=== PATIENT | male | born 1955 | race Caucasian/White ===

== ENCOUNTER 2017-02-01 10:58 | Day surgery (SDC) | payer OTHER ==
--- NOTE | 2017-01-29 13:56 | HP ---
DATE OF SURGERY: 02/01/2017 HISTORY OF PRESENT ILLNESS: The patient is a 62 year-old who for a few weeks had 10 small sized masses in his axilla decrease some in size but he is concerned as he has had scratched himself previously. He has history of melanoma in the past. He is concerned and desires excisional biopsy. PAST MEDICAL HISTORY: Diabetes mellitus type 2, history of melanoma in the past. PAST SURGICAL HISTORY: Melanoma excision in the past. Kidney stones removed in the past. Ericson teeth extracted. MEDICATIONS: Actos, Metformin, lisinopril, lovastatin, omeprazole. ALLERGIES: DEMEROL. FAMILY HISTORY: Lung cancer, diabetes. SOCIAL HISTORY: No smoking or alcohol abuse. REVIEW OF SYSTEMS: Twelve systems reviewed per admission assessment. No chest pain or palpitations, no weight loss. Other systems negative or noncontributory as above and per preadmission questionnaire. PHYSICAL EXAMINATION: GENERAL: No acute distress. HEENT: Sclerae nonicteric. NECK: No JVD. CHEST: Equal excursion, nonlabored breathing. CVS: Regular rate and rhythm. AXILLA: Slightly prominent lymph node. No skin changes over the top. ABDOMEN: Soft. No peritoneal signs. EXTREMITIES: No edema. NEURO: Alert, moving extremities symmetrically. No gross motor deficits noted. IMPRESSION: Left axillary lymphadenopathy, prior history of melanoma. The patient desires excisional biopsy for definitive path. Risks and benefits explained in detail including but not limited to bleeding or infection, small risk of hematoma or seroma formation or lymphocele formation possibly requiring open procedure, possible need for drain placement, general risk of anesthesia, deep venous thrombosis, risk of lymphedema, risk of aches, pains, burning or numbness, sensory or motor nerve irritation, scar formation or injury with risk of transient or longer term numbness, risk of weakness in his shoulder or upper extremity but not limited to. He bowel prep, postoperative risk of nausea, vomiting or cramping but not limited to. He understands and agrees to the planned procedure and will proceed with excisional biopsy of left axillary lymphadenopathy as an outpatient. He had been discussed the option of needle biopsy versus excisional biopsy. He prefers to go ahead and proceed with definitive excisional biopsy for treatment and pathologic evaluation accepting the above risks but not limited to.
[~2017-02-01 10:58] MED LIST: Lactated Ringers 1,000 ML IV ONE; Lactated Ringers 1,000 ML IV SCH; Sensorcaine 0.25% 10 ML ONE
[2017-02-01] MEDS ORDERED: SUBLIMAZE 100 MCG/2 ML IV ONE (10:59)
[2017-02-01] MEDS ORDERED: Zofran 4 MG/2 ML VIAL IV ONE (10:59)
[2017-02-01] MEDS ORDERED: DIPRIVAN 200 MG/20 ML IV ONE (10:59)
[2017-02-01] MEDS ORDERED: Decadron 4 MG INJ IV ONE (10:59)
[2017-02-01 12:07] LABS: ANION GAP 11.3 MEQ/L (5-15); BLOOD UREA NITROGEN 15 mg/dL (9-20); CHLORIDE 105 mEq/L (98-107); Glucose 127 MG/DL (70-110); Potassium 4.8 mEq/L (3.5-5.1); SODIUM 140 mEq/L (136-145)
[2017-02-01] MEDS ORDERED: CEFAZOLIN 2 GM-D5W BAG** 2 GM/50 ML ML IV ONE (14:00)
[2017-02-01] MEDS ORDERED: SUBLIMAZE 100 MCG/2 ML ONE (14:51)
--- NOTE | 2017-02-01 14:54 | OP ---
SURGERY DATE/TIME: 02/01/2017 1344 PREOPERATIVE DIAGNOSES: 1) Left axillary adenopathy. 2) History of melanoma. POSTOPERATIVE DIAGNOSES: 1) Left axillary adenopathy. 2) History of melanoma. PROCEDURE: Excisional biopsy of left axillary adenopathy (very large lymph node). SURGEON: Dr. Bonifacio Gilliland. GERM DRIER: Saima Call, Medical Student III. ANESTHESIA: General. ESTIMATED BLOOD LOSS: Minimal. INDICATIONS: As noted above. Risks and benefits explained in detail and not limited to and consent obtained. DESCRIPTION OF PROCEDURE AND FINDINGS: The patient is taken to the operating room. General anesthesia introduced. Axilla and extremity were prepped and draped in usual sterile fashion. After official time out and no disagreement with planned procedure, a transverse incision made directly overlying the palpable adenopathy left axilla. Dissection carried down through the subcu and into the axillary fat pad carefully staying directly on this large lymph node. Slowly and carefully with a clamp ligating small arterial veins and lymphatics going into and out of this node staying directly on the lymph node capsule. This took some time but slowly and carefully accomplished ligating and clipping the small arterial lymphatics. The node was finally mobilized upwards. It was about 4.5 to 5 cm in size. It was passed off. Good hemostasis noted. Axilla was irrigated out. A 10 flat DAHIANA was left in axillary space out through inferior stab wound and secured with PDS suture and placed to bulb suction. The deep subcu was closed closing the axillary fat pad, superficial subcu with 3-0 Vicryl, skin closed with 4-0 Vicryl. Dermabond glue was applied in a couple of areas as well as sterile dressing. Drain secured and placed to bulb suction. The patient tolerated the procedure well. There were no immediate complications. Findings discussed with the family out in the waiting area.
[2017-02-01 15:45] VITALS: PULSE 60
[2017-02-01 16:11] VITALS: BP 142/72; O2SAT 99
== END 2017-02-01 16:15 | disposition home or self-care (01) ==
LOC: SDC 10:58
PROVIDERS: ATTEND Surgery
PROC: 07B60ZX Excision of Left Axillary Lymphatic, Open Approach, Diagnostic (ICD-10-PCS; principal; 2017-02-01)
DX: R59.9 Enlarged lymph nodes, unspecified (principal); Z85.820 Personal history of malignant melanoma of skin; E11.9 Type 2 diabetes mellitus without complications; Z87.442 Personal history of urinary calculi
CPT/HCPCS: 01610; 36415; 80048; 82962; 88184; 88185; 88187; 88188; 88189; 93005; J0690; J1100; J2405; J2704; J3010

== ENCOUNTER 2021-05-15 16:55 | Inpatient (IN) | payer MEDICARE ==
[2021-05-15] MEDS ORDERED: Sodium Chloride 0.9% 1000 ML 1,000 ML IV SCH (17:15)
[2021-05-15] MEDS ORDERED: Sodium Chloride 0.9% 1000 ML 1,000 ML ONE (17:34)
[2021-05-15 17:51] LABS: Absolute Neutrophil Ct (ANC) 3.06 (1.4-6.9); BASOPHIL % 0.2 % (0.0-0.4); Basophil (Absolute #) 0.01 (0-0.4); Eosinophil % 1.8 % (0.00-5.0); Eosinophil (Absolute #) 0.11 (0-0.5); Hematocrit 42.2 % (42-50); Hemoglobin 14.3 gm/dl (12.5-18.0); Lymphocyte (Absolute #) 1.92 (1.0-4.6); Lymphocytes % 32.3 % (24.0-44.0); Mean Cell Volume 84.6 fl (78-100); Mean Corpuscular Hemoglobin 28.7 pg (26-32); Mean Corpuscular Hgb Concent. 33.9 g/dl (32-36); Mean Platelet Volume 9.6 fl (7.5-11.0); Monocyte (Absolute #) 0.85 (0.0-1.3); Monocytes % 14.3 % (0.0-12.0); Neutrophil % 51.4 % (36.0-66.0); Platelet Count 259 K/mm3 (150-450); Red Blood Count 4.99 M/mm3 (4.1-5.6); Red Cell Distribution Width 12.7 % (11.5-14.0)
[2021-05-15 18:13] LABS: ALBUMIN 4.1 g/dL (3.5-5.0); ALKALINE PHOSPHATASE 74 U/L (38-126); ANION GAP 13.6 MEQ/L (5-15); BLOOD UREA NITROGEN 12 mg/dL (9-20); CHLORIDE 92 mmol/L (98-107); Calcium 9.5 mg/dL (8.4-10.2); Carbon Dioxide 23 mmol/L (22-30); Creatinine 1 0.49 mg/dL (0.66-1.25); EST GLOMERULAR FILTRATION RATE > 60.0 ML/MIN; Glucose 329 mg/dL (74-106); Potassium 4.5 mmol/L (3.5-5.1); SGOT/AST 46 U/L (17-59); SGPT/ALT 52 U/L (0-50); SODIUM 124 mmol/L (137-145); Total Protein 6.8 g/dL (6.3-8.2)
--- NOTE | 2021-05-15 18:22 | ERPHSYRPT ---
- History of Present Illness Time Seen by Provider: 05/15/21 17:10 Historian: patient Exam Limitations: no limitations Patient Subjective Stated Complaint: PT states "I am on immunotherapy for melanoma, I have chronic constipation and I know I am not moving much of my andreina ls. I am nauseated but I will not vomited. My belly hurts a little and I am not moving much gas." Triage Nursing Assessment: Pt presented alert and oriented X 3, skin wpd Pt ambulates with a slow gait, able to speak in clear full sentences. Pt in no apaprent respiratory distress. Pt resting comfortably on the bed. Physician History: Patient is a 66-year-old male with a history of melanoma on immunotherapy presents to our ED with complaints of abdominal pain which she believes is due to constipation. Patient states he is not having frequent bowel movements is normal. Patient states he is not passing much gas. Patient describes abdominal pain as a bloating sensation and a pressure. There is intermittent exacerbations of his pain as well. No vomiting. No trauma. No fever. No chest pain or shortness of breath. Symptoms are mild to moderate in intensity. No specific worsening or improving factors. Patient voices no other complaints or concerns at this time. Timing/Duration: today Activities at Onset: none Quality: aching, fullness, pressure Abdominal Pain Onset Location: generalized abdomen Pain Radiation: no radiation Severity of Pain-Max: moderate Severity of Pain-Current: mild Associated Symptoms: denies symptoms Previous symptoms: no prior history Allergies/Adverse Reactions: meperidine [From Demerol] Adverse Reaction (Intermediate, Verified 06/01/20 09:34) Nausea Home Medications: Lovastatin 40 mg PO HS 02/01/17 [History] Omeprazole 20 mg PO DAILY 02/01/17 [History] Albuterol 2.5 mg/3 ml Neb [Proventil 2.5 mg/3 ml Neb] 2.5 mg IH UD 02/08/20 [History] Albuterol 8 gm Mdi Hfa [Ventolin Hfa MDI] 8 gm IH UD 02/08/20 [History] Arformoterol Tartrate [Brovana] 15 mcg IH BID 02/08/20 [History] Budesonide 0.5 mg/2 ml [Pulmicort 0.5 mg/2 ml Respules] 0.5 mg IH DAILY 02/08/20 [History] Glipizide 5 mg [Glucotrol 5 MG] 5 mg PO DAILY 02/08/20 [History] Ibuprofen [Advil] 200 mg PO UD 02/08/20 [History] Valsartan 80 mg PO DAILY 02/08/20 [History] Hx Tetanus, Diphtheria Vaccination/Date Given: No Hx Influenza Vaccination/Date Given: Yes Hx Pneumococcal Vaccination/Date Given: Yes Immunizations Up to Date: Yes Travel Risk - International Travel Have you traveled outside of the country in past 3 weeks: No - Coronavirus Screening Are you exhibiting any of the following symptoms?: No Close contact with a COVID-19 positive Pt in past 14-21 Days: No - Vaccine Status Have you recieved a Covid-19 vaccination: Yes [employer]: [employer] - Vaccination Dates Date of 2cond Vaccination (if applicable): 08/2020 Comment: booster in february - Review of Systems Constitutional: No Symptoms, No Fever, No Chills Eyes: No Symptoms Ears, Nose, & Throat: No Symptoms Respiratory: No Symptoms, No Cough, No Dyspnea Cardiac: No Symptoms, No Chest Pain, No Edema, No Syncope Abdominal/Gastrointestinal: No Symptoms, No Abdominal Pain, No Nausea, No Vomiting, No Diarrhea Genitourinary Symptoms: No Symptoms, No Dysuria Musculoskeletal: No Symptoms, No Back Pain, No Neck Pain Skin: No Symptoms, No Rash Neurological: No Symptoms, No Dizziness, No Focal Weakness, No Sensory Changes Psychological: No Symptoms Endocrine: No Symptoms Hematologic/Lymphatic: No Symptoms Immunological/Allergic: No Symptoms All Other Systems: Reviewed and Negative - Past Medical History Pertinent Past Medical History: Yes Neurological History: No Pertinent History ENT History: No Pertinent History Cardiac History: High Cholesterol, Hypertension, Other Respiratory History: COPD Endocrine Medical History: Diabetes Type II Musculoskeletal History: Other GI Medical History: GERD History: Other Psycho-Social History: No Pertinent History Male Reproductive Disorders: No Pertinent History Other Medical History: HX FX LEFT TIBIA 2003 TREATED WITH CASTING THEN BOOT WITHOUT RESIDUAL PROBLEMS. GERD. melanoma - Past Surgical History Past Surgical History: Yes Neuro Surgical History: No Pertinent History Cardiac: No Pertinent History Respiratory: No Pertinent History Gastrointestinal: No Pertinent History Genitourinary: Other Musculoskeletal: Orthopedic Surgery Male Surgical History: No Pertinent History Other Surgical History: kidney stone removal, wisdom teeth removed, MULTIPLE melanoma removed, LEFT ROTATOR CUFF REPAIR AND BICEP TENDON REPAIR. SURGICAL FLUSH OF POST OP INFECTION OF LEFT SHOULDER,left shoulder repair and antibiotic beads palced 05/29/2020 - Social History Smoking Status: Never smoker Exposure to second hand smoke: Yes Drug Use: none Patient Lives Alone: No - Nursing Vital Signs Nursing Vital Signs: Initial Vital Signs Temperature 97.8 F 05/15/21 17:01 Pulse Rate 66 05/15/21 17:01 Respiratory Rate 20 05/15/21 17:01 Blood Pressure 124/79 05/15/21 17:01 O2 Sat by Pulse Oximetry 100 05/15/21 17:01 Pain Scale Pain Intensity 0 - Physical Exam General Appearance: no apparent distress, alert Eye Exam: PERRL/EOMI, eyes nml inspection Ears, Nose, Throat Exam: normal ENT inspection, pharynx normal, moist mucous membranes Neck Exam: normal inspection, non-tender, supple, full range of motion Respiratory Exam: normal breath sounds, lungs clear, airway intact, No respiratory distress Cardiovascular Exam: regular rate/rhythm, normal heart sounds Gastrointestinal/Abdomen Exam: soft, distention, other (Mild diffuse abdominal tenderness.), No tenderness, No mass Back Exam: normal inspection, normal range of motion, No CVA tenderness, No vertebral tenderness Extremity Exam: normal inspection, normal range of motion, pelvis stable Neurologic Exam: alert, oriented x 3, cooperative, normal mood/affect, nml cerebellar function, sensation nml, No motor deficits Skin Exam: normal color, warm, dry Lymphatic Exam: No adenopathy SpO2 Interpretation: normal SpO2: 98 O2 Delivery: Room Air - Course Nursing assessment & vital signs reviewed: Yes - CT Exams Abdomen/Pelvis CT Interpretation: Tele-radiologist Report (No comparisons. Indeterminate 2.3 cm noncalcified left adrenal mass, not adenoma. Normal appendix. Scattered diverticulosis. Remaining abdomen pelvis negative.) Ordered Tests: Active Orders 24 hr Category Date Time Status IV Insertion STAT Care 05/15/21 17:15 Active POCT Glucose Check STAT Care 05/15/21 21:05 Active ABDOMEN AND PELVIS W/0 CONTRAS [CT] Stat Exams 05/15/21 17:14 Taken CBC W DIFF Stat Lab 05/15/21 17:33 Completed CMP Stat Lab 05/15/21 17:33 Completed POCT GLUCOSE Stat Lab 05/15/21 21:04 Completed TROPONIN Q3H Lab 05/15/21 17:33 Completed TROPONIN Q3H Lab 05/15/21 20:12 Completed TROPONIN Q3H Lab 05/16/21 02:15 Ordered TROPONIN Q3H Lab 05/16/21 05:15 Ordered UA W/RFX UR CULTURE Stat Lab 05/15/21 19:50 Completed Transfer Order Routine Transfer 05/15/21 Ordered Medication Summary Generic Name Dose Route Start Last Admin Trade Name Jose PRN Reason Stop Dose Admin Sodium Chloride 1,000 mls @ 100 mls/hr 05/15/21 17:15 05/15/21 17:35 Sodium Chloride 0.9% 1000 Ml IV 06/14/21 17:14 100 mls/hr .Q10H BALBIR Administration Discontinued Medications Generic Name Dose Route Start Last Admin Trade Name Jose PRN Reason Stop Dose Admin Acetaminophen 1,000 mg 05/15/21 18:55 05/15/21 18:57 Acetaminophen 500 Mg Tablet PO 05/15/21 18:56 1,000 mg STAT ONE Administration Acetaminophen Confirm 05/15/21 18:57 Acetaminophen 500 Mg Tablet Administered 05/15/21 18:58 Dose 1,000 mg .ROUTE .STK-MED ONE Heparin Sodium (Beef Lung) 500 units 05/15/21 18:54 05/15/21 20:56 Heparin Lock Flush Pf 500 Units/5 Ml Syringe PORT FLUSH 05/15/21 18:55 Not Given STAT ONE Morphine Sulfate 4 mg 05/15/21 19:41 05/15/21 19:44 Morphine Sulfate 4 Mg/Ml Injection IV 05/15/21 19:42 4 mg STAT ONE Administration Morphine Sulfate Confirm 05/15/21 19:43 Morphine Sulfate 4 Mg/Ml Injection Administered 05/15/21 19:44 Dose 4 mg .ROUTE .STK-MED ONE Ondansetron HCl Confirm 05/15/21 19:49 Ondansetron Hcl 4 Mg/2 Ml Vial Administered 05/15/21 19:50 Dose 4 mg .ROUTE .STK-MED ONE Ondansetron HCl 4 mg 05/15/21 19:50 05/15/21 19:50 Ondansetron Hcl 4 Mg/2 Ml Vial IV 05/15/21 19:51 4 mg STAT ONE Administration Lab/Rad Data: Laboratory Result Diagrams 05/15/21 17:33 05/15/21 17:33 Laboratory Results 05/15/21 05/15/21 05/15/21 Range/Units 21:04 20:50 20:12 WBC (4.0-10.5) K/mm3 RBC (4.1-5.6) M/mm3 Hgb (12.5-18.0) gm/dl Hct (42-50) % MCV (78-100) fl MCH (26-32) pg MCHC (32-36) g/dl RDW (11.5-14.0) % Plt Count (150-450) K/mm3 MPV (7.5-11.0) fl Gran % (36.0-66.0) % Eos # (Auto) (0-0.5) Absolute Lymphs (auto) (1.0-4.6) Absolute Monos (auto) (0.0-1.3) Lymphocytes % (24.0-44.0) % Monocytes % (0.0-12.0) % Eosinophils % (0.00-5.0) % Basophils % (0.0-0.4) % Absolute Granulocytes (1.4-6.9) Basophils # (0-0.4) Sodium (137-145) mmol/L Potassium (3.5-5.1) mmol/L Chloride (98-107) mmol/L Carbon Dioxide (22-30) mmol/L Anion Gap (5-15) MEQ/L BUN (9-20) mg/dL Creatinine (0.66-1.25) mg/dL Estimated GFR ML/MIN Glucose (74-106) mg/dL POC Glucometer 240 H (74 to 106) mg/dL Calcium (8.4-10.2) mg/dL Total Bilirubin (0.2-1.3) mg/dL AST (17-59) U/L ALT (0-50) U/L Alkaline Phosphatase (38-126) U/L Troponin I < 0.012 (0.000-0.034) ng/mL Serum Total Protein (6.3-8.2) g/dL Albumin (3.5-5.0) g/dL Urine Color (YELLOW) Urine Appearance (CLEAR) Urine pH (5-6) Ur Specific [place] (1.005-1.025) Urine Protein (Negative) Urine Ketones (NEGATIVE) Urine Blood (0-5) Ramirez/ul Urine Nitrite (NEGATIVE) Urine Bilirubin (NEGATIVE) Urine Urobilinogen (0-1) mg/dL Ur Leukocyte Esterase (NEGATIVE) Urine WBC (Auto) (0-5) /HPF Urine RBC (Auto) (0-2) /HPF U Epithel Cells (Auto) (FEW) /HPF Urine Bacteria (Auto) (NEGATIVE) /HPF Urine Culture Reflexed (NO) Urine Glucose (NEGATIVE) mg/dL Influenza Type A Ag NEGATIVE (NEGATIVE) Influenza Type B Ag NEGATIVE (NEGATIVE) RSV (PCR) NEGATIVE (Negative) SARS-CoV-2 (PCR) NEGATIVE (NEGATIVE) 05/15/21 05/15/21 05/15/21 Range/Units 19:50 17:33 17:33 WBC 6.0 (4.0-10.5) K/mm3 RBC 4.99 (4.1-5.6) M/mm3 Hgb 14.3 (12.5-18.0) gm/dl Hct 42.2 (42-50) % MCV 84.6 (78-100) fl MCH 28.7 (26-32) pg MCHC 33.9 (32-36) g/dl RDW 12.7 (11.5-14.0) % Plt Count 259 (150-450) K/mm3 MPV 9.6 (7.5-11.0) fl Gran % 51.4 (36.0-66.0) % Eos # (Auto) 0.11 (0-0.5) Absolute Lymphs (auto) 1.92 (1.0-4.6) Absolute Monos (auto) 0.85 (0.0-1.3) Lymphocytes % 32.3 (24.0-44.0) % Monocytes % 14.3 H (0.0-12.0) % Eosinophils % 1.8 (0.00-5.0) % Basophils % 0.2 (0.0-0.4) % Absolute Granulocytes 3.06 (1.4-6.9) Basophils # 0.01 (0-0.4) Sodium 124 L (137-145) mmol/L Potassium 4.5 (3.5-5.1) mmol/L Chloride 92 L (98-107) mmol/L Carbon Dioxide 23 (22-30) mmol/L Anion Gap 13.6 (5-15) MEQ/L BUN 12 (9-20) mg/dL Creatinine 0.49 L (0.66-1.25) mg/dL Estimated GFR > 60.0 ML/MIN Glucose 329 H (74-106) mg/dL POC Glucometer (74 to 106) mg/dL Calcium 9.5 (8.4-10.2) mg/dL Total Bilirubin 0.70 (0.2-1.3) mg/dL AST 46 (17-59) U/L ALT 52 H (0-50) U/L Alkaline Phosphatase 74 (38-126) U/L Troponin I (0.000-0.034) ng/mL Serum Total Protein 6.8 (6.3-8.2) g/dL Albumin 4.1 (3.5-5.0) g/dL Urine Color YELLOW (YELLOW) Urine Appearance CLEAR (CLEAR) Urine pH 5.0 (5-6) Ur Specific [place] 1.032 (1.005-1.025) Urine Protein NEGATIVE (Negative) Urine Ketones SMALL (NEGATIVE) Urine Blood NEGATIVE (0-5) Ramirez/ul Urine Nitrite NEGATIVE (NEGATIVE) Urine Bilirubin NEGATIVE (NEGATIVE) Urine Urobilinogen NEGATIVE (0-1) mg/dL Ur Leukocyte Esterase NEGATIVE (NEGATIVE) Urine WBC (Auto) NONE (0-5) /HPF Urine RBC (Auto) NONE (0-2) /HPF U Epithel Cells (Auto) NONE (FEW) /HPF Urine Bacteria (Auto) NONE SEEN (NEGATIVE) /HPF Urine Culture Reflexed NO (NO) Urine Glucose >=500 (NEGATIVE) mg/dL Influenza Type A Ag (NEGATIVE) Influenza Type B Ag (NEGATIVE) RSV (PCR) (Negative) SARS-CoV-2 (PCR) (NEGATIVE) 05/15/21 Range/Units 17:33 WBC (4.0-10.5) K/mm3 RBC (4.1-5.6) M/mm3 Hgb (12.5-18.0) gm/dl Hct (42-50) % MCV (78-100) fl MCH (26-32) pg MCHC (32-36) g/dl RDW (11.5-14.0) % Plt Count (150-450) K/mm3 MPV (7.5-11.0) fl Gran % (36.0-66.0) % Eos # (Auto) (0-0.5) Absolute Lymphs (auto) (1.0-4.6) Absolute Monos (auto) (0.0-1.3) Lymphocytes % (24.0-44.0) % Monocytes % (0.0-12.0) % Eosinophils % (0.00-5.0) % Basophils % (0.0-0.4) % Absolute Granulocytes (1.4-6.9) Basophils # (0-0.4) Sodium (137-145) mmol/L Potassium (3.5-5.1) mmol/L Chloride (98-107) mmol/L Carbon Dioxide (22-30) mmol/L Anion Gap (5-15) MEQ/L BUN (9-20) mg/dL Creatinine (0.66-1.25) mg/dL Estimated GFR ML/MIN Glucose (74-106) mg/dL POC Glucometer (74 to 106) mg/dL Calcium (8.4-10.2) mg/dL Total Bilirubin (0.2-1.3) mg/dL AST (17-59) U/L ALT (0-50) U/L Alkaline Phosphatase (38-126) U/L Troponin I < 0.012 (0.000-0.034) ng/mL Serum Total Protein (6.3-8.2) g/dL Albumin (3.5-5.0) g/dL Urine Color (YELLOW) Urine Appearance (CLEAR) Urine pH (5-6) Ur Specific [place] (1.005-1.025) Urine Protein (Negative) Urine Ketones (NEGATIVE) Urine Blood (0-5) Ramirez/ul Urine Nitrite (NEGATIVE) Urine Bilirubin (NEGATIVE) Urine Urobilinogen (0-1) mg/dL Ur Leukocyte Esterase (NEGATIVE) Urine WBC (Auto) (0-5) /HPF Urine RBC (Auto) (0-2) /HPF U Epithel Cells (Auto) (FEW) /HPF Urine Bacteria (Auto) (NEGATIVE) /HPF Urine Culture Reflexed (NO) Urine Glucose (NEGATIVE) mg/dL Influenza Type A Ag (NEGATIVE) Influenza Type B Ag (NEGATIVE) RSV (PCR) (Negative) SARS-CoV-2 (PCR) (NEGATIVE) - Progress Progress: improved Progress Note: Patient reassessed. He feels much better. No active abdominal pain or lower extremity cramping. Patient is hyponatremic. Case discussed with Dr. Diaz who accepts admission to observation. We will continue IV fluids. We will place patient on a fluid restriction. Troponin negative. Glucose improving. Plan of care discussed with patient. He agrees to admission [facility] for further evaluation and treatment. 05/15/21 22: Patient's primary care doctor is Dr. Curiel. Dr. Diaz is covering Dr. Curiel today. Portions of this note were created with voice recognition technology. There may be grammatical, spelling, punctuation or sound alike errors 05/15/21 22:[address] Chely Will see patient in: hospital (observation) Counseled pt/family regarding: lab results, diagnosis, rad results - Departure Departure Disposition: Observation Clinical Impression: Adrenal mass, left, Diverticulosis, Hyponatremia, Hyperglycemia, Generalized weakness Condition: Stable Critical Care Time: No Referrals: DOCTOR,NO FAMILY [Primary Care Provider] - Follow up/PCP as directed Additional Instructions: Discharge/Care Plan BRITNEY NÚÑEZ was seen on 05/15/21 in the Emergency Room. The patient was counseled regarding Diagnosis,Lab results, Imaging studies, need for follow up and when to return to the Emergency Room. Prescriptions given: Discharge Note I have spoken with the patient and/or caregivers. I have explained the patient's condition, diagnosis and treatment plan based on the information available to me at this time. I have answered the patient's and/or caregiver's questions and addressed any concerns. The patient and/or caregivers have as good understanding of the patient's diagnosis, condition and treatment plan as can be expected at this point. The vital signs have been stable. The patient's condition is stable and appropriate for discharge from the emergency department. The patient will pursue further outpatient evaluation with the primary care physician or other designated or consulting physician as outlined in the discharge instructions. The patient and/or caregivers are agreeable to this plan of care and follow-up instructions have been explained in detail. The patient and/or caregivers have received these instruction. The patient/and or caregivers are aware that any significant change in condition or worsening of symptoms should prompt an immediate return to this or the closest emergency department or call 911.
[2021-05-15] MEDS ORDERED: TYLENOL EXTRA STRENGTH 500 MG PO ONE (18:55)
[2021-05-15] MEDS ORDERED: TYLENOL EXTRA STRENGTH 500 MG ONE (18:57)
[2021-05-15] MEDS ORDERED: MORPHINE SULFATE 4 MG INJ IV ONE (19:41)
[2021-05-15] MEDS ORDERED: MORPHINE SULFATE 4 MG INJ ONE (19:43)
[2021-05-15] MEDS ORDERED: Zofran 4 MG/2 ML VIAL ONE (19:49)
[2021-05-15] MEDS ORDERED: Zofran 4 MG/2 ML VIAL IV ONE (19:50)
[2021-05-15 19:55] LABS: Appearance CLEAR (CLEAR); Bilirubin NEGATIVE (NEGATIVE); Blood NEGATIVE Ery/ul (0-5); Glucose >=500 mg/dL (NEGATIVE); Ketones SMALL (NEGATIVE); Leukocyte Esterase NEGATIVE (NEGATIVE); Nitrite NEGATIVE (NEGATIVE); Protein,Urine Dip NEGATIVE (Negative); Specific Gravity 1.032 (1.005-1.025); Urobilinogen NEGATIVE mg/dL (0-1)
[2021-05-15 19:57] LABS: Bacteria NONE SEEN /HPF (NEGATIVE)
[2021-05-15 21:42] LABS: INFLUENZA A NEGATIVE (NEGATIVE); INFLUENZA B NEGATIVE (NEGATIVE); RESPIRATORY SYNCTIAL VIRUS NEGATIVE (Negative); SARS-CoV-2 Xpert Express NEGATIVE (NEGATIVE)
[2021-05-15] MEDS ORDERED: Zofran 4 MG/2 ML VIAL IV PRN (22:26)
[2021-05-15] MEDS: Sodium Chloride 0.9% 1000 ML 1,000 ML IV SCH (23:00)
[2021-05-16] MEDS: TYLENOL 325 MG PO PRN ×2 (04:57→15:24)
[2021-05-16 05:11] LABS: Absolute Neutrophil Ct (ANC) 1.57 (1.4-6.9); BASOPHIL % 0.5 % (0.0-0.4); Basophil (Absolute #) 0.02 (0-0.4); Eosinophil % 3.2 % (0.00-5.0); Eosinophil (Absolute #) 0.13 (0-0.5); Hematocrit 38.3 % (42-50); Hemoglobin 12.7 gm/dl (12.5-18.0); Lymphocyte (Absolute #) 1.61 (1.0-4.6); Lymphocytes % 39.6 % (24.0-44.0); Mean Cell Volume 85.7 fl (78-100); Mean Corpuscular Hemoglobin 28.4 pg (26-32); Mean Corpuscular Hgb Concent. 33.2 g/dl (32-36); Mean Platelet Volume 9.4 fl (7.5-11.0); Monocyte (Absolute #) 0.74 (0.0-1.3); Monocytes % 18.2 % (0.0-12.0); Neutrophil % 38.5 % (36.0-66.0); Platelet Count 292 K/mm3 (150-450); Red Blood Count 4.47 M/mm3 (4.1-5.6); Red Cell Distribution Width 12.6 % (11.5-14.0); White Blood Count 4.1 K/mm3 (4.0-10.5)
[2021-05-16 05:36] LABS: ALBUMIN 3.4 g/dL (3.5-5.0); ALKALINE PHOSPHATASE 61 U/L (38-126); ANION GAP 11.2 MEQ/L (5-15); BLOOD UREA NITROGEN 9 mg/dL (9-20); CHLORIDE 96 mmol/L (98-107); Calcium 8.5 mg/dL (8.4-10.2); Carbon Dioxide 22 mmol/L (22-30); Creatinine 1 0.45 mg/dL (0.66-1.25); EST GLOMERULAR FILTRATION RATE > 60.0 ML/MIN; Glucose 244 mg/dL (74-106); Potassium 4.5 mmol/L (3.5-5.1); SGOT/AST 65 U/L (17-59); SGPT/ALT 58 U/L (0-50); SODIUM 124 mmol/L (137-145); Total Protein 5.9 g/dL (6.3-8.2)
[2021-05-16] MEDS: MORPHINE SULFATE 2 MG INJ IV PRN ×2 (05:53→21:40)
[2021-05-16] MEDS: Sodium Chloride 0.9% 1000 ML 1,000 ML IV SCH ×2 (09:01→18:37)
--- NOTE | 2021-05-16 09:08 | PCM.HP ---
History of Present Illness - Chief Complaint Chief Complaint: hyponatremia, generalized weakness History of Present Illness: is a 66 year old male with a history of metastatic melanoma, he is currently on opdivo and has known adrenal metastatic disease. He is having profound fatigue for the last 8 days, terrible nausea but no vomiting or diarrhea. He has no cough, no shortness of breath, no diarrhea, abd pain or blood in the stools. He stopped taking metformin 2 weeks ago due to nausea and feeling poorly. He has had a poor appetite and not eating or drinking much. - Review of Systems Constitutional: Fatigue, Weakness Respiratory: No Cough, No Short Of Breath Cardiac: No Chest Pain, No Edema, No Syncope Abdominal/Gastrointestinal: Nausea, No Abdominal Pain, No Vomiting, No Diarrhea, No Constipation, No Hematochezia Genitourinary Symptoms: No Dysuria Skin: No Rash All Other Systems: Reviewed and Negative Medications & Allergies Home Medications: Home Medication List Lovastatin 40 mg PO HS 02/01/17 [History Confirmed 05/15/21] Omeprazole 20 mg PO DAILY 02/01/17 [History Confirmed 05/15/21] Albuterol 2.5 mg/3 ml Neb [Proventil 2.5 mg/3 ml Neb] 2.5 mg IH UD PRN 02/08/20 [History Confirmed 05/15/21] Albuterol 8 gm Mdi Hfa [Ventolin Hfa MDI] 8 gm IH UD PRN 02/08/20 [History Confirmed 05/15/21] Arformoterol Tartrate [Brovana] 15 mcg IH BID 02/08/20 [History Confirmed 05/15/21] Budesonide 0.5 mg/2 ml [Pulmicort 0.5 mg/2 ml Respules] 0.5 mg IH DAILY 02/08/20 [History Confirmed 05/15/21] Glipizide 5 mg [Glucotrol 5 MG] 5 mg PO DAILY 02/08/20 [History Confirmed 05/15/21] Ibuprofen [Advil] 200 mg PO UD PRN 02/08/20 [History Confirmed 05/15/21] Valsartan 80 mg PO DAILY 02/08/20 [History Confirmed 05/15/21] Allergies/Adverse Reactions: Allergies Allergy/AdvReac Type Severity Reaction Status Date / Time meperidine [From Demerol] AdvReac Intermediate Nausea Verified 06/01/20 09:34 - Past Medical History Past Medical History: Yes Neurological History: No Pertinent History ENT History: No Pertinent History Cardiac History: High Cholesterol, Hypertension, Other Respiratory History: COPD Endocrine Medical History: Diabetes Type II Musculoskelatal History: Other GI Medical History: GERD History: Other Pyscho-Social History: No Pertinent History Male Reproductive Disorders: No Pertinent History Comment: HX FX LEFT TIBIA 2003 TREATED WITH CASTING THEN BOOT WITHOUT RESIDUAL PROBLEMS. GERD. melanoma. Mass on the right kidney - Past Surgical History Past Surgical History: Yes Neuro Surgical History: No Pertinent History Cardiac History: No Pertinent History Respiratory Surgery: No Pertinent History GI Surgical History: No Pertinent History Genitourinary Surgical Hx: Other Musculskeletal Surgical Hx: Orthopedic Surgery Male Surgical History: No Pertinent History Other Surgical History: kidney stone removal, wisdom teeth removed, MULTIPLE melanoma removed, LEFT ROTATOR CUFF REPAIR AND BICEP TENDON REPAIR. SURGICAL FLUSH OF POST OP INFECTION OF LEFT SHOULDER,left shoulder repair and antibiotic beads palced 05/29/2020 - Social History Smoking Status: Never smoker Exposure to second hand smoke: No Alcohol: None Drug Use: none - Physical Exam Vital Signs: Vital Signs - 24 hr Temp Pulse Resp BP Pulse Ox 05/16/21 08:00 18 05/16/21 04:00 97.3 F 77 18 101/55 96 05/16/21 00:00 97.7 F 74 16 118/59 95 05/15/21 23:12 97.3 F 73 16 107/70 98 05/15/21 23:04 91 L 05/15/21 22:26 96 05/15/21 22:14 98 05/15/21 22:06 76 15 101/67 94 L 05/15/21 21:04 70 108/81 94 L 05/15/21 20:00 76 14 103/72 91 L 05/15/21 19:00 84 16 137/82 96 05/15/21 18:08 77 18 113/84 98 05/15/21 17:01 97.8 F 66 20 124/79 100 General Appearance: thin, other (frail appearing) Respiratory Exam: normal breath sounds, lungs clear, No respiratory distress Cardiovascular Exam: regular rate/rhythm, normal heart sounds, normal peripheral pulses Gastrointestinal/Abdomen Exam: soft, normal bowel sounds, No tenderness, No mass Extremity Exam: normal inspection, normal range of motion, pelvis stable Skin Exam: normal color, warm, dry, No rash Results - Labs Lab/Micro Results: Lab Results-Last 24 Hours 05/15/21 05/15/21 05/15/21 Range/Units 17:33 17:33 17:33 WBC 6.0 (4.0-10.5) K/mm3 RBC 4.99 (4.1-5.6) M/mm3 Hgb 14.3 (12.5-18.0) gm/dl Hct 42.2 (42-50) % MCV 84.6 (78-100) fl MCH 28.7 (26-32) pg MCHC 33.9 (32-36) g/dl RDW 12.7 (11.5-14.0) % Plt Count 259 (150-450) K/mm3 MPV 9.6 (7.5-11.0) fl Gran % 51.4 (36.0-66.0) % Eos # (Auto) 0.11 (0-0.5) Absolute Lymphs (auto) 1.92 (1.0-4.6) Absolute Monos (auto) 0.85 (0.0-1.3) Lymphocytes % 32.3 (24.0-44.0) % Monocytes % 14.3 H (0.0-12.0) % Eosinophils % 1.8 (0.00-5.0) % Basophils % 0.2 (0.0-0.4) % Absolute Granulocytes 3.06 (1.4-6.9) Basophils # 0.01 (0-0.4) Sodium 124 L (137-145) mmol/L Potassium 4.5 (3.5-5.1) mmol/L Chloride 92 L (98-107) mmol/L Carbon Dioxide 23 (22-30) mmol/L Anion Gap 13.6 (5-15) MEQ/L BUN 12 (9-20) mg/dL Creatinine 0.49 L (0.66-1.25) mg/dL Estimated GFR > 60.0 ML/MIN Glucose 329 H (74-106) mg/dL POC Glucometer (74 to 106) mg/dL Calcium 9.5 (8.4-10.2) mg/dL Total Bilirubin 0.70 (0.2-1.3) mg/dL AST 46 (17-59) U/L ALT 52 H (0-50) U/L Alkaline Phosphatase 74 (38-126) U/L Troponin I < 0.012 (0.000-0.034) ng/mL Serum Total Protein 6.8 (6.3-8.2) g/dL Albumin 4.1 (3.5-5.0) g/dL Urine Color (YELLOW) Urine Appearance (CLEAR) Urine pH (5-6) Ur Specific [place] (1.005-1.025) Urine Protein (Negative) Urine Ketones (NEGATIVE) Urine Blood (0-5) Ramirez/ul Urine Nitrite (NEGATIVE) Urine Bilirubin (NEGATIVE) Urine Urobilinogen (0-1) mg/dL Ur Leukocyte Esterase (NEGATIVE) Urine WBC (Auto) (0-5) /HPF Urine RBC (Auto) (0-2) /HPF U Epithel Cells (Auto) (FEW) /HPF Urine Bacteria (Auto) (NEGATIVE) /HPF Urine Culture Reflexed (NO) Urine Glucose (NEGATIVE) mg/dL Influenza Type A Ag (NEGATIVE) Influenza Type B Ag (NEGATIVE) RSV (PCR) (Negative) SARS-CoV-2 (PCR) (NEGATIVE) 05/15/21 05/15/21 05/15/21 Range/Units 19:50 20:12 20:50 WBC (4.0-10.5) K/mm3 RBC (4.1-5.6) M/mm3 Hgb (12.5-18.0) gm/dl Hct (42-50) % MCV (78-100) fl MCH (26-32) pg MCHC (32-36) g/dl RDW (11.5-14.0) % Plt Count (150-450) K/mm3 MPV (7.5-11.0) fl Gran % (36.0-66.0) % Eos # (Auto) (0-0.5) Absolute Lymphs (auto) (1.0-4.6) Absolute Monos (auto) (0.0-1.3) Lymphocytes % (24.0-44.0) % Monocytes % (0.0-12.0) % Eosinophils % (0.00-5.0) % Basophils % (0.0-0.4) % Absolute Granulocytes (1.4-6.9) Basophils # (0-0.4) Sodium (137-145) mmol/L Potassium (3.5-5.1) mmol/L Chloride (98-107) mmol/L Carbon Dioxide (22-30) mmol/L Anion Gap (5-15) MEQ/L BUN (9-20) mg/dL Creatinine (0.66-1.25) mg/dL Estimated GFR ML/MIN Glucose (74-106) mg/dL POC Glucometer (74 to 106) mg/dL Calcium (8.4-10.2) mg/dL Total Bilirubin (0.2-1.3) mg/dL AST (17-59) U/L ALT (0-50) U/L Alkaline Phosphatase (38-126) U/L Troponin I < 0.012 (0.000-0.034) ng/mL Serum Total Protein (6.3-8.2) g/dL Albumin (3.5-5.0) g/dL Urine Color YELLOW (YELLOW) Urine Appearance CLEAR (CLEAR) Urine pH 5.0 (5-6) Ur Specific [place] 1.032 (1.005-1.025) Urine Protein NEGATIVE (Negative) Urine Ketones SMALL (NEGATIVE) Urine Blood NEGATIVE (0-5) Ramirez/ul Urine Nitrite NEGATIVE (NEGATIVE) Urine Bilirubin NEGATIVE (NEGATIVE) Urine Urobilinogen NEGATIVE (0-1) mg/dL Ur Leukocyte Esterase NEGATIVE (NEGATIVE) Urine WBC (Auto) NONE (0-5) /HPF Urine RBC (Auto) NONE (0-2) /HPF U Epithel Cells (Auto) NONE (FEW) /HPF Urine Bacteria (Auto) NONE SEEN (NEGATIVE) /HPF Urine Culture Reflexed NO (NO) Urine Glucose >=500 (NEGATIVE) mg/dL Influenza Type A Ag NEGATIVE (NEGATIVE) Influenza Type B Ag NEGATIVE (NEGATIVE) RSV (PCR) NEGATIVE (Negative) SARS-CoV-2 (PCR) NEGATIVE (NEGATIVE) 05/15/21 05/16/21 05/16/21 Range/Units 21:04 05:01 05:01 WBC 4.1 (4.0-10.5) K/mm3 RBC 4.47 (4.1-5.6) M/mm3 Hgb 12.7 (12.5-18.0) gm/dl Hct 38.3 L (42-50) % MCV 85.7 (78-100) fl MCH 28.4 (26-32) pg MCHC 33.2 (32-36) g/dl RDW 12.6 (11.5-14.0) % Plt Count 292 (150-450) K/mm3 MPV 9.4 (7.5-11.0) fl Gran % 38.5 (36.0-66.0) % Eos # (Auto) 0.13 (0-0.5) Absolute Lymphs (auto) 1.61 (1.0-4.6) Absolute Monos (auto) 0.74 (0.0-1.3) Lymphocytes % 39.6 (24.0-44.0) % Monocytes % 18.2 H (0.0-12.0) % Eosinophils % 3.2 (0.00-5.0) % Basophils % 0.5 (0.0-0.4) % Absolute Granulocytes 1.57 (1.4-6.9) Basophils # 0.02 (0-0.4) Sodium 124 L (137-145) mmol/L Potassium 4.5 (3.5-5.1) mmol/L Chloride 96 L (98-107) mmol/L Carbon Dioxide 22 (22-30) mmol/L Anion Gap 11.2 (5-15) MEQ/L BUN 9 (9-20) mg/dL Creatinine 0.45 L (0.66-1.25) mg/dL Estimated GFR > 60.0 ML/MIN Glucose 244 H (74-106) mg/dL POC Glucometer 240 H (74 to 106) mg/dL Calcium 8.5 (8.4-10.2) mg/dL Total Bilirubin 0.60 (0.2-1.3) mg/dL AST 65 H (17-59) U/L ALT 58 H (0-50) U/L Alkaline Phosphatase 61 (38-126) U/L Troponin I (0.000-0.034) ng/mL Serum Total Protein 5.9 L (6.3-8.2) g/dL Albumin 3.4 L (3.5-5.0) g/dL Urine Color (YELLOW) Urine Appearance (CLEAR) Urine pH (5-6) Ur Specific [place] (1.005-1.025) Urine Protein (Negative) Urine Ketones (NEGATIVE) Urine Blood (0-5) Ramirez/ul Urine Nitrite (NEGATIVE) Urine Bilirubin (NEGATIVE) Urine Urobilinogen (0-1) mg/dL Ur Leukocyte Esterase (NEGATIVE) Urine WBC (Auto) (0-5) /HPF Urine RBC (Auto) (0-2) /HPF U Epithel Cells (Auto) (FEW) /HPF Urine Bacteria (Auto) (NEGATIVE) /HPF Urine Culture Reflexed (NO) Urine Glucose (NEGATIVE) mg/dL Influenza Type A Ag (NEGATIVE) Influenza Type B Ag (NEGATIVE) RSV (PCR) (Negative) SARS-CoV-2 (PCR) (NEGATIVE) 05/16/21 Range/Units 07:59 WBC (4.0-10.5) K/mm3 RBC (4.1-5.6) M/mm3 Hgb (12.5-18.0) gm/dl Hct (42-50) % MCV (78-100) fl MCH (26-32) pg MCHC (32-36) g/dl RDW (11.5-14.0) % Plt Count (150-450) K/mm3 MPV (7.5-11.0) fl Gran % (36.0-66.0) % Eos # (Auto) (0-0.5) Absolute Lymphs (auto) (1.0-4.6) Absolute Monos (auto) (0.0-1.3) Lymphocytes % (24.0-44.0) % Monocytes % (0.0-12.0) % Eosinophils % (0.00-5.0) % Basophils % (0.0-0.4) % Absolute Granulocytes (1.4-6.9) Basophils # (0-0.4) Sodium (137-145) mmol/L Potassium (3.5-5.1) mmol/L Chloride (98-107) mmol/L Carbon Dioxide (22-30) mmol/L Anion Gap (5-15) MEQ/L BUN (9-20) mg/dL Creatinine (0.66-1.25) mg/dL Estimated GFR ML/MIN Glucose (74-106) mg/dL POC Glucometer 207 H (74 to 106) mg/dL Calcium (8.4-10.2) mg/dL Total Bilirubin (0.2-1.3) mg/dL AST (17-59) U/L ALT (0-50) U/L Alkaline Phosphatase (38-126) U/L Troponin I (0.000-0.034) ng/mL Serum Total Protein (6.3-8.2) g/dL Albumin (3.5-5.0) g/dL Urine Color (YELLOW) Urine Appearance (CLEAR) Urine pH (5-6) Ur Specific [place] (1.005-1.025) Urine Protein (Negative) Urine Ketones (NEGATIVE) Urine Blood (0-5) Ramirez/ul Urine Nitrite (NEGATIVE) Urine Bilirubin (NEGATIVE) Urine Urobilinogen (0-1) mg/dL Ur Leukocyte Esterase (NEGATIVE) Urine WBC (Auto) (0-5) /HPF Urine RBC (Auto) (0-2) /HPF U Epithel Cells (Auto) (FEW) /HPF Urine Bacteria (Auto) (NEGATIVE) /HPF Urine Culture Reflexed (NO) Urine Glucose (NEGATIVE) mg/dL Influenza Type A Ag (NEGATIVE) Influenza Type B Ag (NEGATIVE) RSV (PCR) (Negative) SARS-CoV-2 (PCR) (NEGATIVE) Accuchecks Date 05/15/21 Time 21:06 - Radiology Impressions Radiology Exams & Impressions: Radiology Procedures Category Date Time Status ABDOMEN AND PELVIS W/0 CONTRAS [CT] Stat Exams 05/15/21 17:14 Taken Assessment/Plan (1) Hyponatremia Current Visit: Yes Status: Acute Assessment & Plan: patient on IV normal saline, no diuretics. compounded by hyperglycemia, add s liding scale coverage and f/u labs tomorrow with gentle hydration Code(s): E87.1 - HYPO-OSMOLALITY AND HYPONATREMIA (2) Dehydration Current Visit: Yes Status: Acute Code(s): E86.0 - DEHYDRATION (3) Generalized weakness Current Visit: Yes Status: Acute Code(s): R53.1 - WEAKNESS (4) Hyperglycemia Current Visit: Yes Status: Acute Assessment & Plan: sliding scale coverage Code(s): R73.9 - HYPERGLYCEMIA, UNSPECIFIED (5) 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
[2021-05-16] MEDS ORDERED: DULCOLAX 5 MG PO PRN (09:10)
[2021-05-16] MEDS ORDERED: ARFORMOTEROL TARTRATE 15 MCG/2 ML IH SCH (10:00)
--- NOTE | 2021-05-16 10:10 | XRAY ---
Exam: CT of the abdomen and pelvis without IV contrast from 05/15/2021. CTDI: 10.90 mGy Comparison: None. Indication: 66-year-old male with diffuse abdominal pain for 8 days; history of prior cholecystectomy; history of melanoma. Technique: Non-IV contrast axial images were obtained through the abdomen and pelvis. Reconstructed coronal and sagittal images were created and reviewed. Findings: The lung bases reveals some minimal bibasilar linear atelectasis/scarring, right greater than left. No active lung disease is seen. The heart size is normal. There is a mild sliding hiatal hernia present. The liver is of normal size and reveals no definite mass or intrahepatic biliary duct distention on this non-IV contrast study. The gallbladder is surgically absent. The spleen appears of normal size and reveals no mass. The pancreas appears unremarkable. The right adrenal gland appears unremarkable. However, at the anterior lateral margin of the left adrenal gland, there is an indeterminate solid 2.3 cm in diameter noncalcified mass measuring +35.7 Hounsfield units. This does not represent an adenoma. Correlate clinically. Both kidneys appear of unremarkable size and shape. There is no gross evidence of mass or hydronephrosis. I believe there is a small nonobstructing stone overlying the posterior aspect of the lower pole of the right kidney on axial image #42. This is also seen on coronal image #83 and sagittal image #64. In fact, there may be a second tiny stone within the lower pole of the right kidney on coronal image #78 and sagittal image #73 as well. There is no acute obstructive uropathy. Moderate atherosclerotic vascular calcification is seen within the abdominal aorta, origin of both renal arteries, iliac arteries, and common femoral arteries. I see no evidence of abdominal aortic aneurysm or abnormal retroperitoneal lymphadenopathy. There is no free intraperitoneal air or bowel containing ventral hernia. There is a suggestion of a tiny fat-containing supraumbilical ventral hernia on midline sagittal image #105. I see no evidence of bowel obstruction. Scattered diverticula are seen throughout the colon, the greatest number noted within the sigmoid colon. I see no evidence of acute diverticulitis. I see no findings to suggest acute appendicitis. The urinary bladder appears grossly unremarkable. The seminal vesicles are prominent in a symmetric manner. The prostate gland also appears mildly enlarged measuring 5.8 cm in width and 3.3 cm in AP depth on axial image #80. No abnormal pelvic lymphadenopathy or free intraperitoneal fluid is seen. Some vascular calcification is also seen within the proximal superficial and profunda femoral arteries. The skeleton reveals no acute fracture or aggressive bone lesion. Mild facet joint arthropathy is seen at L4-L5 and L5-S1. Impression: 1. Indeterminate, noncalcified 2.3 cm in diameter left adrenal mass. This does not have an attenuation value of an adenoma. Correlate clinically. 2. Colonic diverticulosis without evidence of acute diverticulitis. 3. Normal appendix. 4. Mild hiatal hernia. 5. At least a couple small nonobstructing stones are seen within the lower pole of the right kidney. 6. Mild diffuse enlargement of the seminal vesicles and prostate gland. Correlate clinically. 7. Moderate atherosclerotic vascular calcification is seen, as discussed above. 8. No other acute process is seen within the abdomen or pelvis.
[2021-05-16] MEDS: HUMALOG SQ PRN ×4 (10:25→21:41)
[2021-05-16] MEDS: DIOVAN 80 MG PO SCH (10:25)
[2021-05-16] MEDS: Zofran 4 MG/2 ML VIAL IV PRN (11:07)
[2021-05-16] MEDS ORDERED: MAALOX ES 30 ML UNIT DOSE PO PRN (19:53)
[2021-05-16] MEDS ORDERED: MAALOX ES 30 ML UNIT DOSE ONE (19:59)
[2021-05-16] MEDS: MAALOX ES 30 ML UNIT DOSE PO PRN (20:09)
[2021-05-17] MEDS: Sodium Chloride 0.9% 1000 ML 1,000 ML IV SCH ×3 (03:28→23:10)
[2021-05-17] MEDS: MAALOX ES 30 ML UNIT DOSE PO PRN (04:39)
[2021-05-17] MEDS: MORPHINE SULFATE 2 MG INJ IV PRN ×2 (04:39→08:46)
[2021-05-17 06:31] LABS: Absolute Neutrophil Ct (ANC) 2.94 (1.4-6.9); BASOPHIL % 0.4 % (0.0-0.4); Basophil (Absolute #) 0.02 (0-0.4); Eosinophil % 2.7 % (0.00-5.0); Eosinophil (Absolute #) 0.15 (0-0.5); Hematocrit 36.7 % (42-50); Hemoglobin 12.1 gm/dl (12.5-18.0); Lymphocyte (Absolute #) 1.64 (1.0-4.6); Lymphocytes % 29.3 % (24.0-44.0); Mean Cell Volume 86.4 fl (78-100); Mean Corpuscular Hemoglobin 28.5 pg (26-32); Mean Platelet Volume 9.7 fl (7.5-11.0); Monocyte (Absolute #) 0.84 (0.0-1.3); Neutrophil % 52.6 % (36.0-66.0); Platelet Count 297 K/mm3 (150-450); Red Blood Count 4.25 M/mm3 (4.1-5.6); Red Cell Distribution Width 12.7 % (11.5-14.0); White Blood Count 5.6 K/mm3 (4.0-10.5)
[2021-05-17 06:50] LABS: ANION GAP 14.2 MEQ/L (5-15); BLOOD UREA NITROGEN 6 mg/dL (9-20); CHLORIDE 96 mmol/L (98-107); Calcium 8.2 mg/dL (8.4-10.2); Carbon Dioxide 20 mmol/L (22-30); Creatinine 1 0.38 mg/dL (0.66-1.25); EST GLOMERULAR FILTRATION RATE > 60.0 ML/MIN; Glucose 192 mg/dL (74-106); MAGNESIUM 1.5 mg/dL (1.6-2.3); Potassium 4.4 mmol/L (3.5-5.1); SODIUM 125 mmol/L (137-145)
--- NOTE | 2021-05-17 10:35 | PCM.NOTE ---
Date and Time: 05/17/21 1034 Subjective Assessment: still weak - Review of Systems Constitutional: No Fever, No Chills Eyes: No Symptoms Ears, Nose, & Throat: No Symptoms Respiratory: No Cough, No Short Of Breath Cardiac: No Chest Pain, No Edema, No Syncope Abdominal/Gastrointestinal: No Abdominal Pain, No Nausea, No Vomiting, No Diarrhea Genitourinary Symptoms: No Dysuria Musculoskeletal: No Back Pain, No Neck Pain Skin: No Rash Neurological: No Dizziness, No Focal Weakness, No Sensory Changes Psychological: No Symptoms Endocrine: No Symptoms Hematologic/Lymphatic: No Symptoms Immunological/Allergic: No Symptoms Objective Exam General Appearance: no apparent distress, alert Neurologic Exam: alert, oriented x 3, cooperative, normal mood/affect, nml cerebellar function, sensation nml, No motor deficits Skin Exam: normal color, warm, dry Eye Exam: PERRL, EOMI, eyes nml inspection Ears, Nose, Throat Exam: normal ENT inspection, pharynx normal, moist mucous membranes Neck Exam: normal inspection, non-tender, supple, full range of motion Respiratory Exam: normal breath sounds, lungs clear, No respiratory distress Cardiovascular Exam: regular rate/rhythm, normal heart sounds Gastrointestinal/Abdomen Exam: soft, No tenderness, No mass Extremity Exam: normal inspection, normal range of motion Back Exam: normal inspection, normal range of motion, No CVA tenderness, No vertebral tenderness Male Genitalia Exam: deferred Rectal Exam: deferred OBJECTIVE DATA Vital Signs: Vital Signs - 24 hr Temp Pulse Resp BP Pulse Ox 05/17/21 08:00 99.3 F 75 18 96/54 92 L 05/17/21 04:00 98.0 F 56 L 18 92/58 95 05/17/21 00:00 97.5 F 60 16 79/52 92 L 05/16/21 20:00 16 05/16/21 19:55 97.7 F 63 16 80/50 93 L 05/16/21 16:00 98.7 F 60 16 81/52 94 L 05/16/21 12:00 97.5 F 66 19 100/60 96 Pain Assessment - Last Documented Pain Intensity 9 Pain Scale Used 0-10 Pain Scale Intake and Output: Intake & Output 05/14/21 05/15/21 05/16/21 05/17/21 11:59 11:59 11:59 11:59 Intake Total 761 2868 Output Total 350 400 Balance 411 5128 Weight 72.2 kg Lab Results: Lab Results-Last 24 Hours 05/16/21 05/16/21 05/16/21 Range/Units 11:42 16:15 21:24 WBC (4.0-10.5) K/mm3 RBC (4.1-5.6) M/mm3 Hgb (12.5-18.0) gm/dl Hct (42-50) % MCV (78-100) fl MCH (26-32) pg MCHC (32-36) g/dl RDW (11.5-14.0) % Plt Count (150-450) K/mm3 MPV (7.5-11.0) fl Gran % (36.0-66.0) % Eos # (Auto) (0-0.5) Absolute Lymphs (auto) (1.0-4.6) Absolute Monos (auto) (0.0-1.3) Lymphocytes % (24.0-44.0) % Monocytes % (0.0-12.0) % Eosinophils % (0.00-5.0) % Basophils % (0.0-0.4) % Absolute Granulocytes (1.4-6.9) Basophils # (0-0.4) Sodium (137-145) mmol/L Potassium (3.5-5.1) mmol/L Chloride (98-107) mmol/L Carbon Dioxide (22-30) mmol/L Anion Gap (5-15) MEQ/L BUN (9-20) mg/dL Creatinine (0.66-1.25) mg/dL Estimated GFR ML/MIN Glucose (74-106) mg/dL POC Glucometer 241 H 180 H 208 H (74 to 106) mg/dL Calcium (8.4-10.2) mg/dL Magnesium (1.6-2.3) mg/dL 05/17/21 05/17/21 05/17/21 Range/Units 05:40 05:40 07:24 WBC 5.6 (4.0-10.5) K/mm3 RBC 4.25 (4.1-5.6) M/mm3 Hgb 12.1 L (12.5-18.0) gm/dl Hct 36.7 L (42-50) % MCV 86.4 (78-100) fl MCH 28.5 (26-32) pg MCHC 33.0 (32-36) g/dl RDW 12.7 (11.5-14.0) % Plt Count 297 (150-450) K/mm3 MPV 9.7 (7.5-11.0) fl Gran % 52.6 (36.0-66.0) % Eos # (Auto) 0.15 (0-0.5) Absolute Lymphs (auto) 1.64 (1.0-4.6) Absolute Monos (auto) 0.84 (0.0-1.3) Lymphocytes % 29.3 (24.0-44.0) % Monocytes % 15.0 H (0.0-12.0) % Eosinophils % 2.7 (0.00-5.0) % Basophils % 0.4 (0.0-0.4) % Absolute Granulocytes 2.94 (1.4-6.9) Basophils # 0.02 (0-0.4) Sodium 125 L (137-145) mmol/L Potassium 4.4 (3.5-5.1) mmol/L Chloride 96 L (98-107) mmol/L Carbon Dioxide 20 L (22-30) mmol/L Anion Gap 14.2 (5-15) MEQ/L BUN 6 L (9-20) mg/dL Creatinine 0.38 L (0.66-1.25) mg/dL Estimated GFR > 60.0 ML/MIN Glucose 192 H (74-106) mg/dL POC Glucometer 203 H (74 to 106) mg/dL Calcium 8.2 L (8.4-10.2) mg/dL Magnesium 1.5 L (1.6-2.3) mg/dL Radiology Exams: Radiology Procedures Category Date Time Status ABDOMEN AND PELVIS W/0 CONTRAS [CT] Stat Exams 05/15/21 17:14 Completed Assessment/Plan (1) Dehydration Current Visit: Yes Status: Acute Code(s): E86.0 - DEHYDRATION (2) Hyponatremia Current Visit: Yes Status: Acute Code(s): E87.1 - HYPO-OSMOLALITY AND HYPONATREMIA (3) 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
[2021-05-17] MEDS: DIOVAN 80 MG PO SCH (10:45)
[2021-05-17] MEDS: SUBLIMAZE 100 MCG/2 ML IV PRN ×2 (12:36→18:52)
[2021-05-17] MEDS: PROTONIX 40 MG IV IV SCH (12:36)
[2021-05-17] MEDS: Reglan 10 MG/2 ML IV SCH ×3 (12:37→22:08)
[2021-05-17] MEDS: ROCEPHIN 1 Gm-D5w 50 ml Bag** 1 G/50 ML IVPB IV SCH (12:37)
[2021-05-17] MEDS: Zofran 4 MG/2 ML VIAL IV PRN (17:22)
[2021-05-17] MEDS: HUMALOG SQ PRN (17:22)
[2021-05-17] MEDS: PATIENT OWN MEDICATION NEB SCH (19:41)
[2021-05-18] MEDS: SUBLIMAZE 100 MCG/2 ML IV PRN ×2 (04:12→09:57)
[2021-05-18] MEDS: Reglan 10 MG/2 ML IV SCH ×4 (06:45→21:51)
[2021-05-18] MEDS: PATIENT OWN MEDICATION NEB SCH ×3 (07:05→19:12)
[2021-05-18 07:08] LABS: Hematocrit 34.8 % (42-50); Hemoglobin 11.3 gm/dl (12.5-18.0); Mean Cell Volume 88.3 fl (78-100); Mean Corpuscular Hemoglobin 28.7 pg (26-32); Mean Corpuscular Hgb Concent. 32.5 g/dl (32-36); Mean Platelet Volume 9.4 fl (7.5-11.0); Platelet Count 289 K/mm3 (150-450); Red Blood Count 3.94 M/mm3 (4.1-5.6); Red Cell Distribution Width 12.8 % (11.5-14.0); White Blood Count 6.3 K/mm3 (4.0-10.5)
[2021-05-18 07:26] LABS: ALBUMIN 2.7 g/dL (3.5-5.0); ALKALINE PHOSPHATASE 53 U/L (38-126); ANION GAP 13.3 MEQ/L (5-15); BLOOD UREA NITROGEN 3 mg/dL (9-20); CHLORIDE 100 mmol/L (98-107); Carbon Dioxide 18 mmol/L (22-30); Creatinine 1 0.51 mg/dL (0.66-1.25); EST GLOMERULAR FILTRATION RATE > 60.0 ML/MIN; Glucose 131 mg/dL (74-106); Potassium 4.7 mmol/L (3.5-5.1); SGOT/AST 46 U/L (17-59); SGPT/ALT 51 U/L (0-50); SODIUM 126 mmol/L (137-145); Total Protein 5.1 g/dL (6.3-8.2)
--- NOTE | 2021-05-18 08:46 | PCM.NOTE ---
Date and Time: 05/18/21844 Subjective Assessment: doing better - Review of Systems Constitutional: No Fever, No Chills Eyes: No Symptoms Ears, Nose, & Throat: No Symptoms Respiratory: No Cough, No Short Of Breath Cardiac: No Chest Pain, No Edema, No Syncope Abdominal/Gastrointestinal: Abdominal Pain, No Nausea, No Vomiting, No Diarrhea Genitourinary Symptoms: No Dysuria Musculoskeletal: No Back Pain, No Neck Pain Skin: No Rash Neurological: No Dizziness, No Focal Weakness, No Sensory Changes Psychological: No Symptoms Endocrine: No Symptoms Hematologic/Lymphatic: No Symptoms Immunological/Allergic: No Symptoms Objective Exam General Appearance: no apparent distress, alert Neurologic Exam: alert, oriented x 3, cooperative, normal mood/affect, nml cerebellar function, sensation nml, No motor deficits Skin Exam: normal color, warm, dry Eye Exam: PERRL, EOMI, eyes nml inspection Ears, Nose, Throat Exam: normal ENT inspection, pharynx normal, moist mucous membranes Neck Exam: normal inspection, non-tender, supple, full range of motion Respiratory Exam: normal breath sounds, lungs clear, No respiratory distress Cardiovascular Exam: regular rate/rhythm, normal heart sounds Gastrointestinal/Abdomen Exam: soft, No tenderness, No mass Extremity Exam: normal inspection, normal range of motion Back Exam: normal inspection, normal range of motion, No CVA tenderness, No vertebral tenderness Male Genitalia Exam: deferred Rectal Exam: deferred OBJECTIVE DATA Vital Signs: Vital Signs - 24 hr Temp Pulse Resp BP Pulse Ox 05/18/21 07:07 72 16 93 L 05/18/21 04:00 100.2 F 77 20 100/53 94 L 05/18/21 00:00 16 05/17/21 23:49 98.4 F 83 16 102/51 95 05/17/21 20:07 98.7 F 95 H 18 88/52 93 L 05/17/21 20:00 18 05/17/21 19:40 82 18 93 L 05/17/21 16:00 100.5 F 80 16 97/53 91 L 05/17/21 12:00 99.3 F 78 18 93/53 92 L 05/17/21 11:30 78 20 92 L Pain Assessment - Last Documented Pain Intensity 6 Pain Scale Used FLACC Intake and Output: Intake & Output 05/15/21 05/16/21 05/17/2121 11:59 11:59 11:59 11:59 Intake Total 766 6005 3181 Output Total 350 400 400 Balance 411 7458 2781 Weight 72.2 kg Lab Results: Lab Results-Last 24 Hours 05/17/21 05/17/21 05/17/21 Range/Units 11:40 16:02 20:53 WBC (4.0-10.5) K/mm3 RBC (4.1-5.6) M/mm3 Hgb (12.5-18.0) gm/dl Hct (42-50) % MCV (78-100) fl MCH (26-32) pg MCHC (32-36) g/dl RDW (11.5-14.0) % Plt Count (150-450) K/mm3 MPV (7.5-11.0) fl Sodium (137-145) mmol/L Potassium (3.5-5.1) mmol/L Chloride (98-107) mmol/L Carbon Dioxide (22-30) mmol/L Anion Gap (5-15) MEQ/L BUN (9-20) mg/dL Creatinine (0.66-1.25) mg/dL Estimated GFR ML/MIN Glucose (74-106) mg/dL POC Glucometer 179 H 209 H 151 H (74 to 106) mg/dL Calcium (8.4-10.2) mg/dL Total Bilirubin (0.2-1.3) mg/dL AST (17-59) U/L ALT (0-50) U/L Alkaline Phosphatase (38-126) U/L Serum Total Protein (6.3-8.2) g/dL Albumin (3.5-5.0) g/dL 05/18/21 05/18/21 05/18/21 Range/Units 06:35 06:35 08:18 WBC 6.3 (4.0-10.5) K/mm3 RBC 3.94 L (4.1-5.6) M/mm3 Hgb 11.3 L (12.5-18.0) gm/dl Hct 34.8 L (42-50) % MCV 88.3 (78-100) fl MCH 28.7 (26-32) pg MCHC 32.5 (32-36) g/dl RDW 12.8 (11.5-14.0) % Plt Count 289 (150-450) K/mm3 MPV 9.4 (7.5-11.0) fl Sodium 126 L (137-145) mmol/L Potassium 4.7 (3.5-5.1) mmol/L Chloride 100 (98-107) mmol/L Carbon Dioxide 18 L (22-30) mmol/L Anion Gap 13.3 (5-15) MEQ/L BUN 3 L (9-20) mg/dL Creatinine 0.51 L (0.66-1.25) mg/dL Estimated GFR > 60.0 ML/MIN Glucose 131 H (74-106) mg/dL POC Glucometer 144 H (74 to 106) mg/dL Calcium 8.0 L (8.4-10.2) mg/dL Total Bilirubin 0.60 (0.2-1.3) mg/dL AST 46 (17-59) U/L ALT 51 H (0-50) U/L Alkaline Phosphatase 53 (38-126) U/L Serum Total Protein 5.1 L (6.3-8.2) g/dL Albumin 2.7 L (3.5-5.0) g/dL Assessment/Plan (1) Dehydration Current Visit: Yes Status: Acute Code(s): E86.0 - DEHYDRATION (2) Hyponatremia Current Visit: Yes Status: Acute Code(s): E87.1 - HYPO-OSMOLALITY AND HYPONATREMIA (3) 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
[2021-05-18] MEDS: Sodium Chloride 0.9% 1000 ML 1,000 ML IV SCH ×2 (09:41→15:58)
[2021-05-18] MEDS: ROCEPHIN 1 Gm-D5w 50 ml Bag** 1 G/50 ML IVPB IV SCH (09:41)
[2021-05-18] MEDS: Zofran 4 MG/2 ML VIAL IV PRN (09:41)
[2021-05-18] MEDS: DIOVAN 80 MG PO SCH (09:41)
[2021-05-18] MEDS: PROTONIX 40 MG IV IV SCH (09:41)
[2021-05-18] MEDS: HUMALOG SQ PRN (11:45)
[2021-05-18] MEDS: Hydromorphone 1 mg/ml Injection IV PRN ×2 (15:57→20:29)
[2021-05-18 17:43] LABS: INFLUENZA A NEGATIVE (NEGATIVE); INFLUENZA B NEGATIVE (NEGATIVE)
[2021-05-19] MEDS: Hydromorphone 1 mg/ml Injection IV PRN ×2 (00:23→17:30)
[2021-05-19] MEDS: Sodium Chloride 0.9% 1000 ML 1,000 ML IV SCH (05:53)
[2021-05-19] MEDS: PATIENT OWN MEDICATION NEB SCH ×4 (07:46→18:32)
[2021-05-19] MEDS: Reglan 10 MG/2 ML IV SCH ×4 (08:22→21:27)
[2021-05-19] MEDS: ROCEPHIN 1 Gm-D5w 50 ml Bag** 1 G/50 ML IVPB IV SCH (09:33)
[2021-05-19] MEDS: PROTONIX 40 MG IV IV SCH (09:33)
[2021-05-19] MEDS: DIOVAN 80 MG PO SCH (12:08)
--- NOTE | 2021-05-19 13:58 | PCM.NOTE ---
Date and Time: 05/19/21 1353 Subjective Assessment: Patient is still very weak but has been able to get up to the bathroom without feeling like he would pass out. He has been eating jello and only a bite of meatloaf and potatoes. He is on glimiperide at home and sugars were running 200s-300s before admission. He was on salt tabs at home but was not able to take any pills bc of extreme nausea. Objective Exam General Appearance: no apparent distress (fatigued/weak appearing) Neurologic Exam: alert, oriented x 3, cooperative, normal mood/affect Skin Exam: warm, dry, pale Eye Exam: eyes nml inspection Ears, Nose, Throat Exam: normal ENT inspection Neck Exam: normal inspection Respiratory Exam: normal breath sounds Cardiovascular Exam: regular rate/rhythm Gastrointestinal/Abdomen Exam: soft (nontender) Extremity Exam: normal inspection (no edema) OBJECTIVE DATA Vital Signs: Vital Signs - 24 hr Temp Pulse Resp BP Pulse Ox 05/19/21 12:00 98.2 F 73 18 89/52 93 L 05/19/21 08:00 98.7 F 77 18 96/49 93 L 05/19/21 07:52 92 H 18 93 L 05/19/21 04:00 99.3 F 83 16 89/50 94 L 05/19/21 00:00 18 05/18/21 23:46 99.5 F 80 18 90/53 94 L 05/18/21 20:00 16 05/18/21 19:46 98.4 F 89 12 93/55 93 L 05/18/21 19:12 89 12 93 L 05/18/21 16:00 98.6 F 54 L 16 86/52 95 05/18/21 15:42 18 Pain Assessment - Last Documented Pain Intensity 0 Pain Scale Used [facility] Intake and Output: Intake & Output 05/17/21 05/18/21 05/19/21 05/20/21 11:59 11:59 11:59 11:59 Intake Total 2868 3301 3517 Output Total 942 905 9158 500 Balance 2468 2901 2217 -500 Lab Results: Lab Results-Last 24 Hours 05/18/21 05/18/21 05/18/21 Range/Units 15:57 16:50 21:37 POC Glucometer 138 H 148 H (74 to 106) mg/dL Influenza Type A Ag NEGATIVE (NEGATIVE) Influenza Type B Ag NEGATIVE (NEGATIVE) 05/19/21 05/19/21 Range/Units 07:46 12:01 POC Glucometer 152 H 185 H (74 to 106) mg/dL Influenza Type A Ag (NEGATIVE) Influenza Type B Ag (NEGATIVE) Multi-Disciplinary Progress Notes: Multi-Disciplinary Progress Notes 05/19/21 11:20 Case Management Note by Johanna Merritt S/W PATIENT- HE CONTINUES TO DENY ANY NEW NEEDS REGARDING DC AT THIS TIME. HE PLANS TO RETURN HOME TO HIS PRIOR LEVEL OF FUNCTIONING AT TIME OF DC. Initialized on 05/19/21 11:20 - END OF NOTE 05/18/21 20:04 Nutrition Note by Mariana Jarrell F/u note: 1800CC diet with glucerna cont with 25% po intake. Labs 05/18= Na 126, BUN 3, Cr 0.51, glu 138, alb 2.7, hgb 11.3, hct 34.8. no recent weight. goal of po intake >=50% not met and ongoing; goal of glu to decrease met and ongoing; goal of no weight loss - not able to assess. Recommend house regular diet and glucerna. Will cont to monitor and f/u prn. CHARLENE Lyons Initialized on 05/18/21 20:04 - END OF NOTE Assessment/Plan (1) Generalized weakness Current Visit: Yes Status: Acute Assessment & Plan: improving Code(s): R53.1 - WEAKNESS (2) Hyperglycemia Current Visit: Yes Status: Acute Assessment & Plan: not eating regular food yet. Will start moderate sliding scale Code(s): R73.9 - HYPERGLYCEMIA, UNSPECIFIED
[2021-05-19] MEDS: HUMALOG SQ PRN ×2 (17:33→22:30)
[2021-05-20 06:11] LABS: Absolute Neutrophil Ct (ANC) 1.16 (1.4-6.9); BASOPHIL % 0.6 % (0.0-0.4); Basophil (Absolute #) 0.02 (0-0.4); Eosinophil % 6.7 % (0.00-5.0); Eosinophil (Absolute #) 0.23 (0-0.5); Hematocrit 33.5 % (42-50); Hemoglobin 11.2 gm/dl (12.5-18.0); Lymphocyte (Absolute #) 1.25 (1.0-4.6); Lymphocytes % 36.2 % (24.0-44.0); Mean Cell Volume 86.8 fl (78-100); Mean Corpuscular Hgb Concent. 33.4 g/dl (32-36); Mean Platelet Volume 9.5 fl (7.5-11.0); Monocyte (Absolute #) 0.79 (0.0-1.3); Monocytes % 22.9 % (0.0-12.0); Neutrophil % 33.6 % (36.0-66.0); Platelet Count 294 K/mm3 (150-450); Red Blood Count 3.86 M/mm3 (4.1-5.6); Red Cell Distribution Width 12.7 % (11.5-14.0); White Blood Count 3.5 K/mm3 (4.0-10.5)
[2021-05-20 06:27] LABS: ALBUMIN 2.9 g/dL (3.5-5.0); ALKALINE PHOSPHATASE 50 U/L (38-126); ANION GAP 8.1 MEQ/L (5-15); CHLORIDE 98 mmol/L (98-107); Calcium 7.9 mg/dL (8.4-10.2); Carbon Dioxide 26 mmol/L (22-30); Creatinine 1 0.43 mg/dL (0.66-1.25); EST GLOMERULAR FILTRATION RATE > 60.0 ML/MIN; Glucose 159 mg/dL (74-106); Potassium 3.7 mmol/L (3.5-5.1); SGOT/AST 41 U/L (17-59); SGPT/ALT 37 U/L (0-50); SODIUM 128 mmol/L (137-145); Total Protein 5.6 g/dL (6.3-8.2)
[2021-05-20 06:28] LABS: BLOOD UREA NITROGEN < 2 mg/dL (9-20)
[2021-05-20] MEDS: Hydromorphone 1 mg/ml Injection IV PRN (08:37)
[2021-05-20] MEDS: PROTONIX 40 MG IV IV SCH (08:38)
[2021-05-20] MEDS: ROCEPHIN 1 Gm-D5w 50 ml Bag** 1 G/50 ML IVPB IV SCH (08:38)
[2021-05-20] MEDS: Reglan 10 MG/2 ML IV SCH ×2 (08:38→12:02)
[2021-05-20] MEDS: DIOVAN 80 MG PO SCH (08:51)
[2021-05-20] MEDS: PATIENT OWN MEDICATION NEB SCH ×2 (10:52)
[2021-05-20] MEDS: HUMALOG SQ PRN (12:02)
[2021-05-20 12:16] VITALS: BP 94/52; PULSE 66; O2SAT 92
--- NOTE | 2021-05-20 13:28 | PCM.DCORD ---
- Discharge Disposition: Home, Self-Care Condition: Stable Prescriptions: New Insulin Regular, Human [Humulin R U-500 Kwikpen] 500 unit SQ TIDAC 30 Days Gabapentin 300 mg [Neurontin 300 mg] 0 mg PO HS #30 Continue Omeprazole 20 mg PO DAILY Lovastatin 40 mg PO HS Albuterol 8 gm Mdi Hfa [Ventolin Hfa MDI] 8 gm IH UD PRN PRN Reason: copd Albuterol 2.5 mg/3 ml Neb [Proventil 2.5 mg/3 ml Neb] 2.5 mg IH UD PRN PRN Reason: copd Ibuprofen [Advil] 200 mg PO UD PRN PRN Reason: Pain Budesonide 0.5 mg/2 ml [Pulmicort 0.5 mg/2 ml Respules] 0.5 mg IH DAILY Arformoterol Tartrate [Brovana] 15 mcg IH BID Valsartan 80 mg PO DAILY Discontinued Glipizide 5 mg [Glucotrol 5 MG] 5 mg PO DAILY Additional Instructions: DR VALENTE HAS SET YOU UP FOR A MRI OF THE BRAIN ON 06/06 AT 5PM AT [facility], ON 05/[address] YOU ALREADY HAD ORDERED WILL BE CHANGED TO A CHEST CT ONLY AT SAME TIME Follow up with: FOREIGN WILLIAMSON DO [Primary Care Provider] -
--- NOTE | 2021-05-20 13:37 | PCM.DS ---
Discharge Summary Date of Admission: 05/16/21 09:02 Date of Discharge: 05/20/21 Admitting Physician: FOREIGN WILLIAMSON DO Consults: Consults on Case 05/19/21 18:30 Diet Consult [Nutritional Consult] ROUTINE Primary Care Provider: FORIEGN WILLIAMSON DO Allergies Allergies meperidine [From Demerol] Adverse Reaction (Intermediate, Verified 06/01/20 09:34) Nausea Hospital Summary - Hospital Course Hospital Course: Patient is a 66 yr old male with Hx metastatic melanoma and uncontrolled DM2. He presented to ER with generalized weakness and nausea. ER work up showed hyponatremia. - Vitals & Intake/Output Vital Signs: Vital Signs Temperature 97.2 F 05/20/21 12:00 Pulse Rate 66 05/20/21 12:00 Respiratory Rate 14 05/20/21 12:00 Blood Pressure 94/52 05/20/21 12:00 O2 Sat by Pulse Oximetry 92 L 05/20/21 12:00 Intake & Output: Intake & Output 05/18/21 05/19/21 05/20/21 05/21/21 11:59 11:59 11:59 11:59 Intake Total 3301 3517 1829 240 Output Total 400 1300 950 300 Balance 2901 2217 879 -60 - Lab Result Diagrams: 05/20/21 05:20 05/20/21 05:20 Lab Results-Last 24 Hrs: Lab Results-Last 24 Hours 05/19/21 05/19/21 05/20/21 Range/Units 16:22 21:55 05:20 WBC 3.5 L (4.0-10.5) K/mm3 RBC 3.86 L (4.1-5.6) M/mm3 Hgb 11.2 L (12.5-18.0) gm/dl Hct 33.5 L (42-50) % MCV 86.8 (78-100) fl MCH 29.0 (26-32) pg MCHC 33.4 (32-36) g/dl RDW 12.7 (11.5-14.0) % Plt Count 294 (150-450) K/mm3 MPV 9.5 (7.5-11.0) fl Gran % 33.6 L (36.0-66.0) % Eos # (Auto) 0.23 (0-0.5) Absolute Lymphs (auto) 1.25 (1.0-4.6) Absolute Monos (auto) 0.79 (0.0-1.3) Lymphocytes % 36.2 (24.0-44.0) % Monocytes % 22.9 H (0.0-12.0) % Eosinophils % 6.7 H (0.00-5.0) % Basophils % 0.6 (0.0-0.4) % Absolute Granulocytes 1.16 L (1.4-6.9) Basophils # 0.02 (0-0.4) Sodium (137-145) mmol/L Potassium (3.5-5.1) mmol/L Chloride (98-107) mmol/L Carbon Dioxide (22-30) mmol/L Anion Gap (5-15) MEQ/L BUN (9-20) mg/dL Creatinine (0.66-1.25) mg/dL Estimated GFR ML/MIN Glucose (74-106) mg/dL POC Glucometer 152 H 223 H (74 to 106) mg/dL Calcium (8.4-10.2) mg/dL Total Bilirubin (0.2-1.3) mg/dL AST (17-59) U/L ALT (0-50) U/L Alkaline Phosphatase (38-126) U/L Serum Total Protein (6.3-8.2) g/dL Albumin (3.5-5.0) g/dL TSH 3rd Generation (0.47-4.68) mIU/L 05/20/21 05/20/21 05/20/21 Range/Units 05:20 05:30 07:23 WBC (4.0-10.5) K/mm3 RBC (4.1-5.6) M/mm3 Hgb (12.5-18.0) gm/dl Hct (42-50) % MCV (78-100) fl MCH (26-32) pg MCHC (32-36) g/dl RDW (11.5-14.0) % Plt Count (150-450) K/mm3 MPV (7.5-11.0) fl Gran % (36.0-66.0) % Eos # (Auto) (0-0.5) Absolute Lymphs (auto) (1.0-4.6) Absolute Monos (auto) (0.0-1.3) Lymphocytes % (24.0-44.0) % Monocytes % (0.0-12.0) % Eosinophils % (0.00-5.0) % Basophils % (0.0-0.4) % Absolute Granulocytes (1.4-6.9) Basophils # (0-0.4) Sodium 128 L (137-145) mmol/L Potassium 3.7 D (3.5-5.1) mmol/L Chloride 98 (98-107) mmol/L Carbon Dioxide 26 (22-30) mmol/L Anion Gap 8.1 (5-15) MEQ/L BUN < 2 L (9-20) mg/dL Creatinine 0.43 L (0.66-1.25) mg/dL Estimated GFR > 60.0 ML/MIN Glucose 159 H (74-106) mg/dL POC Glucometer 151 H (74 to 106) mg/dL Calcium 7.9 L (8.4-10.2) mg/dL Total Bilirubin 0.50 (0.2-1.3) mg/dL AST 41 (17-59) U/L ALT 37 (0-50) U/L Alkaline Phosphatase 50 (38-126) U/L Serum Total Protein 5.6 L (6.3-8.2) g/dL Albumin 2.9 L (3.5-5.0) g/dL TSH 3rd Generation 3.150 (0.47-4.68) mIU/L 05/20/21 Range/Units 12:07 WBC (4.0-10.5) K/mm3 RBC (4.1-5.6) M/mm3 Hgb (12.5-18.0) gm/dl Hct (42-50) % MCV (78-100) fl MCH (26-32) pg MCHC (32-36) g/dl RDW (11.5-14.0) % Plt Count (150-450) K/mm3 MPV (7.5-11.0) fl Gran % (36.0-66.0) % Eos # (Auto) (0-0.5) Absolute Lymphs (auto) (1.0-4.6) Absolute Monos (auto) (0.0-1.3) Lymphocytes % (24.0-44.0) % Monocytes % (0.0-12.0) % Eosinophils % (0.00-5.0) % Basophils % (0.0-0.4) % Absolute Granulocytes (1.4-6.9) Basophils # (0-0.4) Sodium (137-145) mmol/L Potassium (3.5-5.1) mmol/L Chloride (98-107) mmol/L Carbon Dioxide (22-30) mmol/L Anion Gap (5-15) MEQ/L BUN (9-20) mg/dL Creatinine (0.66-1.25) mg/dL Estimated GFR ML/MIN Glucose (74-106) mg/dL POC Glucometer 189 H (74 to 106) mg/dL Calcium (8.4-10.2) mg/dL Total Bilirubin (0.2-1.3) mg/dL AST (17-59) U/L ALT (0-50) U/L Alkaline Phosphatase (38-126) U/L Serum Total Protein (6.3-8.2) g/dL Albumin (3.5-5.0) g/dL TSH 3rd Generation (0.47-4.68) mIU/L Micro Results-Entire Visit: Accuchecks Date 05/20/21 Date 05/20/21 Date 05/19/21 Time 12:00 Time 07:25 Time 21:59 - Procedures and Test Procedures and Tests throughout Hospitalization: Therapy Orders & Screens 05/17/21 11:30 Respiratory Therapy Assessment DAILY Comment: Diagnosis: HYPONATREMIA, MUSCLE WEAKNESS 05/17/21 19:00 Respiratory Nebulizer BID Comment: Diagnosis: HYPONATREMIA, MUSCLE WEAKNESS 05/17/21 23:21 Oxygen Nasal Cannula 2 lpm Comment: Diagnosis: HYPONATREMIA, MUSCLE WEAKNESS Final Diagnosis/Problem List - Final Discharge Diagnosis/Problem (1) Generalized weakness Current Visit: Yes Status: Acute Code(s): R53.1 - WEAKNESS (2) Hyperglycemia Current Visit: Yes Status: Acute Code(s): R73.9 - HYPERGLYCEMIA, UNSPECIFIED - Discharge Disposition: Home, Self-Care Condition: Stable Prescriptions: New Insulin Regular, Human [Humulin R U-500 Kwikpen] 500 unit SQ TIDAC 30 Days Gabapentin 300 mg [Neurontin 300 mg] 0 mg PO HS #30 Continue Omeprazole 20 mg PO DAILY Lovastatin 40 mg PO HS Albuterol 8 gm Mdi Hfa [Ventolin Hfa MDI] 8 gm IH UD PRN PRN Reason: copd Albuterol 2.5 mg/3 ml Neb [Proventil 2.5 mg/3 ml Neb] 2.5 mg IH UD PRN PRN Reason: copd Ibuprofen [Advil] 200 mg PO UD PRN PRN Reason: Pain Budesonide 0.5 mg/2 ml [Pulmicort 0.5 mg/2 ml Respules] 0.5 mg IH DAILY Arformoterol Tartrate [Brovana] 15 mcg IH BID Valsartan 80 mg PO DAILY Discontinued Glipizide 5 mg [Glucotrol 5 MG] 5 mg PO DAILY Additional Instructions: DR VALENTE HAS SET YOU UP FOR A MRI OF THE BRAIN ON 06/06 AT 5PM AT [facility], ON 05/[address] YOU ALREADY HAD ORDERED WILL BE CHANGED TO A CHEST CT ONLY AT SAME TIME Follow up with: FOREIGN WILLIAMSON DO [Primary Care Provider] -
== END 2021-05-20 14:30 | disposition home or self-care (01) | DRG 948 ==
LOC: ED 16:55 → MED SURG 22:12 → OBSVTOIN 05-16 09:02
PROVIDERS: ADMIT Family Medicine; ATTEND Family Medicine
DX: R53.1 Weakness (principal); E87.1 Hypo-osmolality and hyponatremia; C79.70 Secondary malignant neoplasm of unspecified adrenal gland; E11.65 Type 2 diabetes mellitus with hyperglycemia; K57.90 Diverticulosis of intestine, part unspecified, without perforation or abscess without bleeding; E86.0 Dehydration; C43.9 Malignant melanoma of skin, unspecified; I10 Essential (primary) hypertension; Z20.828 Contact with and (suspected) exposure to other viral communicable diseases; Z79.899 Other long term (current) drug therapy
CPT/HCPCS: 0241U; 36000; 36415; 74176; 80048; 80053; 81001; 82533; 82947; 83735; 84443; 84484; 85025; 85027; 87400; 93268; 94640; 94760; 94762; 96374; 96375; 99285; G0378; J0696; J1170; J1642; J1817; J2270; J2405; J3010; A9270-GY

== ENCOUNTER 2021-05-24 23:35 | Observation (INO) | payer MEDICARE ==
[2021-05-25] MEDS ORDERED: solu-CORTEF 100MG IV ONE (00:12)
[2021-05-25] MEDS ORDERED: Sodium Chloride 0.9% 1000 ML 1,000 ML IV STA (00:13)
[2021-05-25 00:39] LABS: Absolute Neutrophil Ct (ANC) 1.74 (1.4-6.9); BASOPHIL % 0.5 % (0.0-0.4); Basophil (Absolute #) 0.02 (0-0.4); Eosinophil % 2.5 % (0.00-5.0); Eosinophil (Absolute #) 0.11 (0-0.5); Hematocrit 36.6 % (42-50); Hemoglobin 12.1 gm/dl (12.5-18.0); Lymphocyte (Absolute #) 1.67 (1.0-4.6); Lymphocytes % 38.3 % (24.0-44.0); Mean Cell Volume 86.5 fl (78-100); Mean Corpuscular Hemoglobin 28.6 pg (26-32); Mean Corpuscular Hgb Concent. 33.1 g/dl (32-36); Mean Platelet Volume 9.6 fl (7.5-11.0); Monocyte (Absolute #) 0.82 (0.0-1.3); Monocytes % 18.8 % (0.0-12.0); Neutrophil % 39.9 % (36.0-66.0); Platelet Count 341 K/mm3 (150-450); Red Blood Count 4.23 M/mm3 (4.1-5.6); Red Cell Distribution Width 13.5 % (11.5-14.0); White Blood Count 4.4 K/mm3 (4.0-10.5)
[2021-05-25] MEDS ORDERED: Sodium Chloride 0.9% 1000 ML 1,000 ML ONE (00:44)
[2021-05-25] MEDS ORDERED: solu-CORTEF 100MG ONE (00:44)
[2021-05-25 00:52] LABS: ALBUMIN 2.7 g/dL (3.5-5.0); ALKALINE PHOSPHATASE 53 U/L (38-126); BLOOD UREA NITROGEN 4 mg/dL (9-20); CHLORIDE 104 mmol/L (98-107); Calcium 8.4 mg/dL (8.4-10.2); Carbon Dioxide 21 mmol/L (22-30); Creatinine 1 0.44 mg/dL (0.66-1.25); EST GLOMERULAR FILTRATION RATE > 60.0 ML/MIN; Glucose 239 mg/dL (74-106); SGOT/AST 44 U/L (17-59); SGPT/ALT 32 U/L (0-50); SODIUM 130 mmol/L (137-145); Total Protein 5.2 g/dL (6.3-8.2)
[2021-05-25 01:03] LABS: Potassium 3.7 mmol/L (3.5-5.1)
[2021-05-25 01:04] LABS: ANION GAP 8.7 MEQ/L (5-15)
--- NOTE | 2021-05-25 01:59 | ERPHSYRPT ---
- History of Present Illness Time Seen by Provider: 05/24/21 23:36 Source: patient Exam Limitations: no limitations Patient Subjective Stated Complaint: "I feel terrible." Triage Nursing Assessment: . Physician History: 66-year-old male with a history of melanoma on immunotherapy, adrenal mass with insufficiency presented in the ER with chief complaint of generalized weakness fatigue and tiredness going on for the last 1 to 2 weeks. Patient reports aches and pains all over with lack of energy to do his routine activities. He feels dizzy and lightheaded with standing up. Denies any abdominal pain nausea or vomiting. No chest pain palpitations or shortness of breath. No fever or chills reported. Patient was recently admitted for hyponatremia and recheck labs outpatient showed low cortisol level and Dr. Curiel instructed patient to be reported in the ER. Per Dr. Curiel will call ER patient needs hydr ocortisone. Patient is a little hypertensive on presentation with systolic blood pressure of 87. Timing/Duration: week(s) (1), constant, gradual onset, worse Severity: moderate Modifying Factors: Improves With: rest. Worsens With: movement Associated Symptoms: nausea, malaise, weakness, No vomiting, No abdominal pain, No shortness of breath, No heartburn, No cough Allergies/Adverse Reactions: meperidine [From Demerol] Adverse Reaction (Intermediate, Verified 06/01/20 09:34) Nausea Home Medications: Lovastatin 40 mg PO HS 02/01/17 [History] Omeprazole 20 mg PO DAILY 02/01/17 [History] Albuterol 2.5 mg/3 ml Neb [Proventil 2.5 mg/3 ml Neb] 2.5 mg IH UD PRN 02/08/20 [History] Albuterol 8 gm Mdi Hfa [Ventolin Hfa MDI] 8 gm IH UD PRN 02/08/20 [History] Arformoterol Tartrate [Brovana] 15 mcg IH BID 02/08/20 [History] Budesonide 0.5 mg/2 ml [Pulmicort 0.5 mg/2 ml Respules] 0.5 mg IH DAILY 02/08/20 [History] Ibuprofen [Advil] 200 mg PO UD PRN 02/08/20 [History] Gabapentin 300 mg [Neurontin 300 mg] 300 mg PO HS 05/24/21 [History] Glipizide [Glipizide ER] 5 mg PO DAILY 05/24/21 [History] Irbesartan 75 mg PO DAILY 05/24/21 [History] Hx Tetanus, Diphtheria Vaccination/Date Given: Yes Hx Influenza Vaccination/Date Given: Yes Hx Pneumococcal Vaccination/Date Given: Yes Travel Risk - International Travel Have you traveled outside of the country in past 3 weeks: No - Coronavirus Screening Are you exhibiting any of the following symptoms?: Yes Symptoms: Headaches/Body Aches/Fatigue Close contact with a COVID-19 positive Pt in past 14-21 Days: No - Vaccine Status Have you recieved a Covid-19 vaccination: Yes Coroner/Medical Examiner: Unknown - Vaccination Dates Date of 2cond Vaccination (if applicable): n/a Dates if Unknown: n/a - Review of Systems Constitutional: Fatigue, Weakness Eyes: No Symptoms Ears, Nose, & Throat: No Symptoms Respiratory: No Symptoms Cardiac: No Symptoms Abdominal/Gastrointestinal: Nausea Genitourinary Symptoms: No Symptoms Musculoskeletal: Myalgias Skin: No Symptoms Neurological: Headache Psychological: No Symptoms Endocrine: No Symptoms Hematologic/Lymphatic: No Symptoms Immunological/Allergic: No Symptoms - Past Medical History Pertinent Past Medical History: Yes Neurological History: No Pertinent History ENT History: No Pertinent History Cardiac History: High Cholesterol, Hypertension, Other Respiratory History: COPD Endocrine Medical History: Diabetes Type II Musculoskeletal History: Other GI Medical History: GERD History: Other Psycho-Social History: No Pertinent History Male Reproductive Disorders: No Pertinent History Other Medical History: HX FX LEFT TIBIA 2003 TREATED WITH CASTING THEN BOOT WITHOUT RESIDUAL PROBLEMS. GERD. melanoma. Mass on the right kidney - Past Surgical History Past Surgical History: Yes Neuro Surgical History: No Pertinent History Cardiac: No Pertinent History Respiratory: No Pertinent History Gastrointestinal: No Pertinent History Genitourinary: Other Musculoskeletal: Orthopedic Surgery Male Surgical History: No Pertinent History Other Surgical History: kidney stone removal, wisdom teeth removed, MULTIPLE melanoma removed, LEFT ROTATOR CUFF REPAIR AND BICEP TENDON REPAIR. SURGICAL FLUSH OF POST OP INFECTION OF LEFT SHOULDER,left shoulder repair and antibiotic beads palced 05/29/2020 - Social History Smoking Status: Never smoker Exposure to second hand smoke: No Drug Use: none Patient Lives Alone: No - Nursing Vital Signs Nursing Vital Signs: Initial Vital Signs Temperature 97.8 F 05/24/21 23:35 Pulse Rate 82 05/24/21 23:35 Respiratory Rate 24 05/24/21 23:35 Blood Pressure 103/71 05/24/21 23:35 O2 Sat by Pulse Oximetry 97 05/24/21 23:35 Pain Scale Pain Intensity 2 - Physical Exam General Appearance: no apparent distress, alert Eye Exam: PERRL/EOMI, eyes nml inspection Ears, Nose, Throat Exam: normal ENT inspection, TMs normal, pharynx normal, moist mucous membranes Neck Exam: normal inspection, non-tender, supple, full range of motion Respiratory Exam: normal breath sounds, lungs clear Cardiovascular Exam: regular rate/rhythm, normal heart sounds Gastrointestinal/Abdomen Exam: soft, normal bowel sounds, No tenderness Back Exam: normal inspection, normal range of motion Extremity Exam: other (Left upper extremity chronic swelling as compared to right from axillary lymph node dissection) Neurologic Exam: alert, oriented x 3, cooperative, 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 as tested, normal mood/affect, nml cerebellar function, sensation nml Skin Exam: normal color SpO2 Interpretation: normal SpO2: 98 O2 Delivery: Room Air Ordered Tests: Medication Summary Discontinued Medications Generic Name Dose Route Start Last Admin Trade Name Freq PRN Reason Stop Dose Admin Acetaminophen 650 mg 05/25/21 03:18 Acetaminophen 325 Mg Tablet PO 06/24/21 03:17 Q4H PRN PRN PAIN AND/OR FEVER Albuterol/Ipratropium 3 ml 05/25/21 03:18 Ipratropium/Albuterol Sulfate 3 Ml Ampul.Neb 06/24/21 03:17 Q4HPRN PRN SHORTNESS OF BREATH/WHEEZING Budesonide 0.5 mg 05/26/21 10:00 Budesonide 0.5 Mg/2 Ml Ampul.Neb. 06/25/21 09:59 DAILY [facility] Gabapentin 300 mg 05/25/21 22:00 Gabapentin 300 Mg Capsule PO 06/24/21 21:59 HS [facility]IR Glipizide 5 mg 05/25/21 13:00 05/25/21 14:05 Glipizide 2.5 Mg Xl Tablet PO 06/24/21 12:59 Not Given DAILY [facility] Hydrocortisone Sodium Succinate 100 mg 05/25/21 00:12 05/25/21 00:47 Hydrocortisone Sod Succinate 100 Mg/Vial Vial IV 05/25/21 00:13 100 mg STAT ONE Administration Hydrocortisone Sodium Succinate Confirm 05/25/21 00:44 Hydrocortisone Sod Succinate 100 Mg/Vial Vial Administered 05/25/21 00:45 Dose 100 mg .ROUTE .STK-MED ONE Hydrocortisone Sodium Succinate 50 mg 05/25/21 03:18 05/25/21 10:31 Hydrocortisone Sod Succinate 100 Mg/Vial Vial IV 05/26/21 08:14 50 mg Q6H [facility] Administration Sodium Chloride 1,000 mls @ 999 mls/hr 05/25/21 00:13 05/25/21 02:20 Sodium Chloride 0.9% 1000 Ml IV 05/25/21 01:13 Infused .Q1H1M STA Infusion Sodium Chloride Confirm 05/25/21 00:44 Sodium Chloride 0.9% 1000 Ml Administered 05/25/21 00:45 Dose 1,000 mls @ ud .ROUTE .STK-MED ONE Magnesium Sulfate/Dextrose 100 mls @ 100 mls/hr 05/25/21 02:00 05/25/21 02:00 Magnesium 1 Gm / 100 Ml D5w IV 05/25/21 03:59 100 mls/hr Q1H [facility] Administration Sodium Chloride 1,000 mls @ 125 mls/hr 05/25/21 03:18 05/25/21 05:43 Sodium Chloride 0.9% 1000 Ml IV 06/24/21 03:17 125 mls/hr .Q8H [facility] Administration Ibuprofen 200 mg 05/25/21 11:40 Ibuprofen 200 Mg Tablet PO 06/24/21 11:39 UD PRN PAIN Insulin Human Lispro 0 unit 05/25/21 03:18 05/25/21 12:34 Insulin Lispro 1 Unit SQ 06/24/21 03:17 4 unit UD PRN Administration HYPERGLYCEMIA Irbesartan 75 mg 05/25/21 13:00 05/25/21 14:05 Irbesartan 150 Mg Tablet PO 06/24/21 12:59 Not Given DAILY [facility] Magnesium Oxide 400 mg 05/25/21 10:17 05/25/21 10:31 Magnesium Oxide 400 Mg Tablet PO 06/24/21 10:16 400 mg DAILY [facility] Administration Miscellaneous Information 1 each 05/25/21 12:00 Medication Intervention 1 Each Each 06/24/21 11:59 .RN TO CHECK [facility] Morphine Sulfate 2 mg 05/25/21 03:18 05/25/21 05:43 Morphine Sulfate 2 Mg/Ml Inj IV 05/30/21 03:17 2 mg Q4H PRN PRN Administration PAIN Non-Formulary Medication 500 unit 05/25/21 16:30 Insulin Regular, Human [Humulin R U-500 Kwikpen] SQ 06/24/21 16:29 TIDAC [facility] Ondansetron HCl 4 mg 05/25/21 03:18 Ondansetron Hcl 4 Mg/2 Ml Vial IV 06/24/21 03:17 Q6H PRN PRN NAUSEA/VOMITING Pantoprazole Sodium 40 mg 05/25/21 10:00 05/25/21 10:31 Pantoprazole 40 Mg Vial IV 06/24/21 09:59 40 mg Q24H10 [facility] Administration Pantoprazole Sodium 40 mg 05/25/21 13:00 05/25/21 14:06 Protonix (Pantoprazole) 40 Mg Tablet PO 06/24/21 12:59 Not Given DAILY [facility] Simvastatin 20 mg 05/25/21 22:00 Simvastatin 20 Mg Tablet PO 06/24/21 21:59 HS [facility] Lab/Rad Data: Laboratory Result Diagrams 05/24/21 00:32 05/24/21 00:32 Laboratory Results 05/25/21 05/25/21 05/24/21 Range/Units 02:07 00:30 00:32 WBC (4.0-10.5) K/mm3 RBC (4.1-5.6) M/mm3 Hgb (12.5-18.0) gm/dl Hct (42-50) % MCV (78-100) fl MCH (26-32) pg MCHC (32-36) g/dl RDW (11.5-14.0) % Plt Count (150-450) K/mm3 MPV (7.5-11.0) fl Gran % (36.0-66.0) % Eos # (Auto) (0-0.5) Absolute Lymphs (auto) (1.0-4.6) Absolute Monos (auto) (0.0-1.3) Lymphocytes % (24.0-44.0) % Monocytes % (0.0-12.0) % Eosinophils % (0.00-5.0) % Basophils % (0.0-0.4) % Absolute Granulocytes (1.4-6.9) Basophils # (0-0.4) Sodium (137-145) mmol/L Potassium (3.5-5.1) mmol/L Chloride (98-107) mmol/L Carbon Dioxide (22-30) mmol/L Anion Gap (5-15) MEQ/L BUN (9-20) mg/dL Creatinine (0.66-1.25) mg/dL Estimated GFR ML/MIN Glucose (74-106) mg/dL Calcium (8.4-10.2) mg/dL Magnesium (1.6-2.3) mg/dL Total Bilirubin (0.2-1.3) mg/dL AST (17-59) U/L ALT (0-50) U/L Alkaline Phosphatase (38-126) U/L Troponin I < 0.012 (0.000-0.034) ng/mL Serum Total Protein (6.3-8.2) g/dL Albumin (3.5-5.0) g/dL ACTH 74.3 H (7.2-63.3) pg/mL Influenza Type A Ag NEGATIVE (NEGATIVE) Influenza Type B Ag NEGATIVE (NEGATIVE) RSV (PCR) NEGATIVE (Negative) SARS-CoV-2 (PCR) NEGATIVE (NEGATIVE) 05/24/21 05/24/21 05/24/21 Range/Units 00:32 00:32 00:32 WBC 4.4 (4.0-10.5) K/mm3 RBC 4.23 (4.1-5.6) M/mm3 Hgb 12.1 L (12.5-18.0) gm/dl Hct 36.6 L (42-50) % MCV 86.5 (78-100) fl MCH 28.6 (26-32) pg MCHC 33.1 (32-36) g/dl RDW 13.5 (11.5-14.0) % Plt Count 341 (150-450) K/mm3 MPV 9.6 (7.5-11.0) fl Gran % 39.9 (36.0-66.0) % Eos # (Auto) 0.11 (0-0.5) Absolute Lymphs (auto) 1.67 (1.0-4.6) Absolute Monos (auto) 0.82 (0.0-1.3) Lymphocytes % 38.3 (24.0-44.0) % Monocytes % 18.8 H (0.0-12.0) % Eosinophils % 2.5 (0.00-5.0) % Basophils % 0.5 (0.0-0.4) % Absolute Granulocytes 1.74 (1.4-6.9) Basophils # 0.02 (0-0.4) Sodium 130 L (137-145) mmol/L Potassium 3.7 (3.5-5.1) mmol/L Chloride 104 (98-107) mmol/L Carbon Dioxide 21 L (22-30) mmol/L Anion Gap 8.7 (5-15) MEQ/L BUN 4 L (9-20) mg/dL Creatinine 0.44 L (0.66-1.25) mg/dL Estimated GFR > 60.0 ML/MIN Glucose 239 H (74-106) mg/dL Calcium 8.4 (8.4-10.2) mg/dL Magnesium 1.3 L (1.6-2.3) mg/dL Total Bilirubin 0.30 (0.2-1.3) mg/dL AST 44 (17-59) U/L ALT 32 (0-50) U/L Alkaline Phosphatase 53 (38-126) U/L Troponin I (0.000-0.034) ng/mL Serum Total Protein 5.2 L (6.3-8.2) g/dL Albumin 2.7 L (3.5-5.0) g/dL ACTH (7.2-63.3) pg/mL Influenza Type A Ag (NEGATIVE) Influenza Type B Ag (NEGATIVE) RSV (PCR) (Negative) SARS-CoV-2 (PCR) (NEGATIVE) - Progress Progress: improved Progress Note: 05/25/21 01:57 Is given fluid bolus and a loading dose of hydrocortisone. Recheck labs showed borderline low sodium and magnesium of 1.3 and is getting replacement. We will continue to hydrate him and will put him on schedule hydrocortisone IV. I have discussed with Dr. Curiel who called patient in ER about low cortisol level and she is okay with admitting patient at [facility]. I have discussed with Dr. Geovanni pacheco with on-call admitting physician and reviewed history, work-up and patient is accepted for admission. Discussed with : Karli Mao Will see patient in: hospital (observation) Counseled pt/family regarding: lab results, diagnosis, need for follow-up - Departure Departure Disposition: Observation Clinical Impression: Hyponatremia, Generalized weakness, Adrenal mass, left, Adrenal insufficiency, Hypomagnesemia Condition: Stable Critical Care Time: No
[2021-05-25] MEDS: Magnesium 1 Gm / 100 Ml D5W*** 100 ML IV SCH (02:00)
[2021-05-25 02:58] LABS: INFLUENZA A NEGATIVE (NEGATIVE); INFLUENZA B NEGATIVE (NEGATIVE); RESPIRATORY SYNCTIAL VIRUS NEGATIVE (Negative); SARS-CoV-2 Xpert Express NEGATIVE (NEGATIVE)
[2021-05-25] MEDS ORDERED: DUONEB 0.5-3 MG/3 ml Neb IH PRN (03:18)
[2021-05-25] MEDS ORDERED: MORPHINE SULFATE 2 MG INJ IV PRN (03:18)
[2021-05-25] MEDS ORDERED: TYLENOL 325 MG PO PRN (03:18)
[2021-05-25] MEDS ORDERED: Sodium Chloride 0.9% 1000 ML 1,000 ML IV SCH (03:18)
[2021-05-25] MEDS ORDERED: Zofran 4 MG/2 ML VIAL IV PRN (03:18)
[2021-05-25] MEDS ORDERED: HUMALOG SQ PRN (03:18)
[2021-05-25] MEDS: solu-CORTEF 100MG IV SCH ×2 (05:43→10:31)
[2021-05-25 05:53] LABS: Absolute Neutrophil Ct (ANC) 2.49 (1.4-6.9); BASOPHIL % 0.3 % (0.0-0.4); Basophil (Absolute #) 0.01 (0-0.4); Eosinophil % 0.3 % (0.00-5.0); Eosinophil (Absolute #) 0.01 (0-0.5); Hematocrit 35.8 % (42-50); Hemoglobin 11.8 gm/dl (12.5-18.0); Lymphocyte (Absolute #) 1.07 (1.0-4.6); Lymphocytes % 28.5 % (24.0-44.0); Mean Cell Volume 86.9 fl (78-100); Mean Corpuscular Hemoglobin 28.6 pg (26-32); Monocyte (Absolute #) 0.18 (0.0-1.3); Monocytes % 4.8 % (0.0-12.0); Neutrophil % 66.1 % (36.0-66.0); Platelet Count 366 K/mm3 (150-450); Red Blood Count 4.12 M/mm3 (4.1-5.6); Red Cell Distribution Width 13.5 % (11.5-14.0); White Blood Count 3.8 K/mm3 (4.0-10.5)
[2021-05-25 06:01] LABS: ALBUMIN 2.8 g/dL (3.5-5.0); ALKALINE PHOSPHATASE 57 U/L (38-126); ANION GAP 12.3 MEQ/L (5-15); BLOOD UREA NITROGEN 4 mg/dL (9-20); CHLORIDE 105 mmol/L (98-107); Calcium 8.1 mg/dL (8.4-10.2); Carbon Dioxide 19 mmol/L (22-30); EST GLOMERULAR FILTRATION RATE > 60.0 ML/MIN; Glucose 225 mg/dL (74-106); SGOT/AST 42 U/L (17-59); SGPT/ALT 31 U/L (0-50); SODIUM 132 mmol/L (137-145); Total Protein 5.2 g/dL (6.3-8.2)
[2021-05-25] MEDS ORDERED: PROTONIX 40 MG IV IV SCH (10:00)
[2021-05-25] MEDS ORDERED: MAG-OX 400 PO SCH (10:17)
[2021-05-25] MEDS ORDERED: MOTRIN 200 MG PO PRN (11:40)
[2021-05-25] MEDS ORDERED: MEDICATION INTERVENTION MC SCH (12:00)
[2021-05-25 12:20] VITALS: BP 114/77; PULSE 93
[2021-05-25] MEDS ORDERED: Avapro 150 MG PO SCH (13:00)
[2021-05-25] MEDS ORDERED: Protonix 40MG Tablet PO SCH (13:00)
[2021-05-25] MEDS ORDERED: Glucotrol Xl 2.5 MG PO SCH (13:00)
[2021-05-25] MEDS ORDERED: INSULIN REGULAR HUMAN 500 UNIT/ML SQ SCH (16:30)
[2021-05-25] MEDS ORDERED: [UNRECOGNIZED DRUG - OTHER] SQ SCH (16:30)
[2021-05-25] MEDS ORDERED: INSULN PE SQ SCH (16:30)
[2021-05-25] MEDS ORDERED: ZOCOR 20MG PO SCH (22:00)
[2021-05-25] MEDS ORDERED: ARFORMOTEROL TARTRATE 15 MCG/2 ML IH SCH (22:00)
[2021-05-25] MEDS ORDERED: NEURONTIN 300 MG PO SCH (22:00)
[2021-05-25] MEDS ORDERED: NON-FORMULARY ITEM (Lovastatin [Lovastatin] 20 MG Tablet) PO SCH (22:00)
[2021-05-26] MEDS ORDERED: PULMICORT 0.5 MG/2 ML RESPULES IH SCH (10:00)
[2021-05-26] MEDS ORDERED: NON-FORMULARY ITEM (Omeprazole [Omeprazole] 10 MG Capsule.Dr) PO SCH (10:00)
[2021-05-26] MEDS ORDERED: NON-FORMULARY ITEM (Glipizide [Glipizide Er] 5 MG Tab.Er.24) PO SCH (10:00)
[2021-05-26] MEDS ORDERED: IRBESARTAN 75 MG PO SCH (10:00)
[2021-05-27 19:28] VITALS: O2SAT 98
== END 2021-05-25 14:15 | disposition home or self-care (01) ==
LOC: ED 23:35 → MED SURG 05-25 03:09
PROVIDERS: ADMIT Family Medicine; ATTEND Family Medicine
DX: E87.1 Hypo-osmolality and hyponatremia (principal); R53.1 Weakness; E27.40 Unspecified adrenocortical insufficiency; D35.02 Benign neoplasm of left adrenal gland; E83.42 Hypomagnesemia; E78.5 Hyperlipidemia, unspecified; I10 Essential (primary) hypertension; E11.9 Type 2 diabetes mellitus without complications; Z79.899 Other long term (current) drug therapy; Z20.828 Contact with and (suspected) exposure to other viral communicable diseases
CPT/HCPCS: 0241U; 36000; 36415; 80053; 82024; 82947; 83735; 84484; 85025; 93005; 93268; 94760; 96360; 96374; 99285; G0378; J1720; J1817; J2270; J3475; A9270-GY

== ENCOUNTER 2021-07-05 17:45 | Emergency (ER) | payer MEDICARE ==
[2021-07-05] MEDS ORDERED: Sodium Chloride 0.9% 1000 ML 1,000 ML IV STA (18:09)
[2021-07-05] MEDS ORDERED: Sodium Chloride 0.9% 1000 ML 1,000 ML ONE (18:16)
--- NOTE | 2021-07-05 18:25 | ERPHSYRPT ---
- History of Present Illness Time Seen by Provider: 07/05/21 18:21 Source: patient, family, EMS Exam Limitations: no limitations Patient Subjective Stated Complaint: pt here for a syncopal episode todayat 0300 while trying to have a BM. states hit head on wall, then states he was sitting in chair at starred out in space for a few seconds, pt now co nasuea, left shoulder pain, no BM in 2 days. Triage Nursing Assessment: pt alert, and oreinted, has abrasion to top of head, has limited movement fo left shoulder with swelling that is normal for him, but states shoulder hurts worse than normal . skin w/d/p. Physician History: pt here for a syncopal episode todayat 0300 while trying to have a BM. states hit head on wall, then states he was sitting in chair at starred out in space for a few seconds, pt now co nasuea, left shoulder pain, no BM in 2 days. Patient is 66-year-old male with significant past medical history of left shoulder surgery hypertension history of seizure disorder was in his usual state of health at around 3:00 in the morning when he went to bathroom to have a bowel movement suddenly he passed out and had a head injury. Afterwards he was doing okay approximately 1 hour ago before coming to the emergency room while he was sitting in the chair suddenly he developed seizure activity which was witnessed by his . He is was staring at the ceiling and was not responding so his brought him to the emergency room via private car. In the emergency room patient is alert awake oriented to time place and person and was able to answer all the questions. He was complaining of some left s houlder pain and headache. Occurred: just prior to arrival Reason for Fall: fainted Injuries/Pain Location: head, upper extremity Loss of Consciousness: brief (seconds) Severity of Pain-Max: mild Severity of Pain-Current: mild Associated Symptoms (Fall): back pain, extremity injury, headache, No vision changes Allergies/Adverse Reactions: meperidine [From Demerol] Adverse Reaction (Intermediate, Verified 07/05/21 17:49) Nausea Home Medications: Lovastatin 40 mg PO HS 02/01/17 [History] Omeprazole 20 mg PO DAILY 02/01/17 [History] Albuterol 2.5 mg/3 ml Neb [Proventil 2.5 mg/3 ml Neb] 2.5 mg IH UD PRN 02/08/20 [History] Albuterol 8 gm Mdi Hfa [Ventolin Hfa MDI] 8 gm IH UD PRN 02/08/20 [History] Arformoterol Tartrate [Brovana] 15 mcg IH BID 02/08/20 [History] Budesonide 0.5 mg/2 ml [Pulmicort 0.5 mg/2 ml Respules] 0.5 mg IH DAILY 02/08/20 [History] Ibuprofen [Advil] 200 mg PO UD PRN 02/08/20 [History] Gabapentin 300 mg [Neurontin 300 mg] 300 mg PO HS 05/24/21 [History] Glipizide [Glipizide ER] 5 mg PO DAILY 05/24/21 [History] Irbesartan 75 mg PO DAILY 05/24/21 [History] Hx Tetanus, Diphtheria Vaccination/Date Given: Yes Hx Influenza Vaccination/Date Given: Yes Hx Pneumococcal Vaccination/Date Given: Yes Immunizations Up to Date: Yes Travel Risk - International Travel Have you traveled outside of the country in past 3 weeks: No - Coronavirus Screening Are you exhibiting any of the following symptoms?: No Close contact with a COVID-19 positive Pt in past 14-21 Days: No - Vaccine Status Have you recieved a Covid-19 vaccination: Yes [employer]: [employer] - Vaccination Dates Date of 2cond Vaccination (if applicable): 2020 - Review of Systems Constitutional: Weakness, No Fever, No Chills Eyes: No Symptoms Ears, Nose, & Throat: No Symptoms Respiratory: No Cough, No Dyspnea Cardiac: No Chest Pain, No Edema, No Syncope Abdominal/Gastrointestinal: No Abdominal Pain, No Nausea, No Vomiting, No Diarrhea Genitourinary Symptoms: No Dysuria Musculoskeletal: Fall, No Back Pain, No Neck Pain Skin: No Rash Neurological: Headache, Seizure, No Dizziness, No Focal Weakness, No Sensory Changes Psychological: No Symptoms Endocrine: No Symptoms All Other Systems: Reviewed and Negative - Past Medical History Pertinent Past Medical History: Yes Neurological History: No Pertinent History ENT History: No Pertinent History Cardiac History: High Cholesterol, Hypertension, Other Respiratory History: COPD Endocrine Medical History: Diabetes Type II Musculoskeletal History: Other GI Medical History: GERD History: Other Psycho-Social History: No Pertinent History Male Reproductive Disorders: No Pertinent History Other Medical History: HX FX LEFT TIBIA 2003 TREATED WITH CASTING THEN BOOT WITHOUT RESIDUAL PROBLEMS. GERD. melanoma. Mass on the right kidney - Past Surgical History Past Surgical History: Yes Neuro Surgical History: No Pertinent History Cardiac: No Pertinent History Respiratory: No Pertinent History Gastrointestinal: No Pertinent History Genitourinary: Other Musculoskeletal: Orthopedic Surgery Male Surgical History: No Pertinent History Other Surgical History: kidney stone removal, wisdom teeth removed, MULTIPLE melanoma removed, LEFT ROTATOR CUFF REPAIR AND BICEP TENDON REPAIR. SURGICAL FLUSH OF POST OP INFECTION OF LEFT SHOULDER,left shoulder repair and antibiotic beads palced 05/29/2020 - Social History Smoking Status: Never smoker Exposure to second hand smoke: No Drug Use: none Patient Lives Alone: No - Nursing Vital Signs Nursing Vital Signs: Initial Vital Signs Temperature 97.0 F 07/05/21 18:08 Pulse Rate 80 07/05/21 18:08 Respiratory Rate 18 07/05/21 18:08 Blood Pressure 125/81 07/05/21 18:08 O2 Sat by Pulse Oximetry 96 07/05/21 18:08 Pain Scale Pain Intensity 0 - Shiloh Coma Score Best Eye Response (Shiloh): (4) open spontaneously Best Verbal Response (Shiloh): (5) oriented Best Motor Response (Per): (6) obeys commands Per Total: 15 - Physical Exam General Appearance: no apparent distress, alert Head Injury: no evidence of injury Eye Exam: PERRL/EOMI ENT Exam: airway nml Neck Exam: normal inspection, No tenderness Respiratory/Chest Exam: normal breath sounds, No chest tenderness, No respiratory distress Cardiovascular Exam: normal heart sounds, regular rate/rhythm Gastrointestinal Exam: soft, No tenderness, No distention, No guarding, No ecchymosis Back Exam: normal inspection, No vertebral tenderness Extremity Exam: normal inspection, normal range of motion, pelvis stable, No deformities Neurologic Exam: alert, oriented x 3, cooperative, sensation nml, No motor deficits Skin Exam: normal color, warm, dry SpO2: 96 - Course Nursing assessment & vital signs reviewed: Yes EKG Interpreted by Me: Sinus Rhythm - Radiology Exams Chest X-ray Interpretation: Reviewed by me - CT Exams Head CT Interpretation: Tele-radiologist Report, No/Intracranial Hemorrhag Ordered Tests: Active Orders 24 hr Category Date Time Status EKG-ER Only STAT Care 07/05/21 18:09 Active Oxygen-ED Only Nasal Cannula 2 lpm Care 07/05/21 18:09 Active Seizure Precautions -SCCHED STAT Care 07/05/21 18:09 Active CHEST 2 VIEWS (PA AND LAT) Stat Exams 07/05/21 18:12 Completed HEAD WITHOUT CONTRAST [CT] Stat Exams 07/05/21 18:10 Taken SHOULDER Stat Exams 07/05/21 18:11 Completed CBC W DIFF Stat Lab 07/05/21 18:29 Completed CMP Stat Lab 07/05/21 18:29 Completed COVID AG-BINAX NOW RAPID TEST Routine Lab 07/05/21 19:26 Completed UA W/RFX UR CULTURE Stat Lab 07/05/21 18:57 Completed Urine Triage Profile Stat Lab 07/05/21 18:57 Completed Medication Summary Discontinued Medications Generic Name Dose Route Start Last Admin Trade Name Flavioq PRN Reason Stop Dose Admin Sodium Chloride 1,000 mls @ 999 mls/hr 07/05/21 18:09 07/05/21 19:34 Sodium Chloride 0.9% 1000 Ml IV 07/05/21 19:09 Infused .Q1H1M STA Infusion Sodium Chloride Confirm 07/05/21 18:16 Sodium Chloride 0.9% 1000 Ml Administered 07/05/21 18:17 Dose 1,000 mls @ ud .ROUTE .STK-MED ONE Ondansetron HCl 4 mg 07/05/21 19:20 07/05/21 19:22 Ondansetron Hcl 4 Mg/2 Ml Vial IV 07/05/21 19:21 4 mg STAT ONE Administration Ondansetron HCl Confirm 07/05/21 19:19 Ondansetron Hcl 4 Mg/2 Ml Vial Administered 07/05/21 19:20 Dose 4 mg .ROUTE .STK-MED ONE Lab/Rad Data: Laboratory Result Diagrams 07/05/21 18:29 07/05/21 18:29 Laboratory Results 07/05/21 07/05/21 07/05/21 Range/Units 19:26 18:57 18:57 WBC (4.0-10.5) K/mm3 RBC (4.1-5.6) M/mm3 Hgb (12.5-18.0) gm/dl Hct (42-50) % MCV (78-100) fl MCH (26-32) pg MCHC (32-36) g/dl RDW (11.5-14.0) % Plt Count (150-450) K/mm3 MPV (7.5-11.0) fl Gran % (36.0-66.0) % Eos # (Auto) (0-0.5) Absolute Lymphs (auto) (1.0-4.6) Absolute Monos (auto) (0.0-1.3) Lymphocytes % (24.0-44.0) % Monocytes % (0.0-12.0) % Eosinophils % (0.00-5.0) % Basophils % (0.0-0.4) % Absolute Granulocytes (1.4-6.9) Basophils # (0-0.4) Sodium (137-145) mmol/L Potassium (3.5-5.1) mmol/L Chloride (98-107) mmol/L Carbon Dioxide (22-30) mmol/L Anion Gap (5-15) MEQ/L BUN (9-20) mg/dL Creatinine (0.66-1.25) mg/dL Estimated GFR ML/MIN Glucose (74-106) mg/dL Calcium (8.4-10.2) mg/dL Total Bilirubin (0.2-1.3) mg/dL AST (17-59) U/L ALT (0-50) U/L Alkaline Phosphatase (38-126) U/L Serum Total Protein (6.3-8.2) g/dL Albumin (3.5-5.0) g/dL Urine Color YELLOW (YELLOW) Urine Appearance CLEAR (CLEAR) Urine pH 7.0 (5-6) Ur Specific [place] 1.017 (1.005-1.025) Urine Protein NEGATIVE (Negative) Urine Ketones MODERATE (NEGATIVE) Urine Blood NEGATIVE (0-5) Ramirez/ul Urine Nitrite NEGATIVE (NEGATIVE) Urine Bilirubin NEGATIVE (NEGATIVE) Urine Urobilinogen NEGATIVE (0-1) mg/dL Ur Leukocyte Esterase NEGATIVE (NEGATIVE) Urine WBC (Auto) 0-2 (0-5) /HPF Urine RBC (Auto) 0-2 (0-2) /HPF U Epithel Cells (Auto) NONE (FEW) /HPF Urine Bacteria (Auto) NONE SEEN (NEGATIVE) /HPF Urine Mucus (Auto) SLIGHT (NEGATIVE) /HPF Urine Culture Reflexed NO (NO) Urine Glucose 150 (NEGATIVE) mg/dL Urine Opiates Level NEGATIVE (NEGATIVE) Ur Methadone NEGATIVE (NEGATIVE) Urine Barbiturates NEGATIVE (NEGATIVE) Ur Phencyclidine (PCP) NEGATIVE (NEGATIVE) Urine Amphetamine NEGATIVE (NEGATIVE) U Benzodiazepine Level NEGATIVE (NEGATIVE) Urine Cocaine NEGATIVE (NEGATIVE) Urine Marijuana (THC) NEGATIVE (NEGATIVE) SARS-CoV-2 Ag (Rapid) NEGATIVE (NEGATIVE) 07/05/21 07/05/21 Range/Units 18:29 18:29 WBC 9.9 (4.0-10.5) K/mm3 RBC 5.06 (4.1-5.6) M/mm3 Hgb 14.5 (12.5-18.0) gm/dl Hct 44.0 (42-50) % MCV 87.0 (78-100) fl MCH 28.7 (26-32) pg MCHC 33.0 (32-36) g/dl RDW 14.0 (11.5-14.0) % Plt Count 267 (150-450) K/mm3 MPV 10.6 (7.5-11.0) fl Gran % 62.6 (36.0-66.0) % Eos # (Auto) 0.02 (0-0.5) Absolute Lymphs (auto) 2.67 (1.0-4.6) Absolute Monos (auto) 0.99 (0.0-1.3) Lymphocytes % 27.0 (24.0-44.0) % Monocytes % 10.0 (0.0-12.0) % Eosinophils % 0.2 (0.00-5.0) % Basophils % 0.2 (0.0-0.4) % Absolute Granulocytes 6.19 (1.4-6.9) Basophils # 0.02 (0-0.4) Sodium 128 L (137-145) mmol/L Potassium 4.6 (3.5-5.1) mmol/L Chloride 93 L (98-107) mmol/L Carbon Dioxide 23 (22-30) mmol/L Anion Gap 16.4 H (5-15) MEQ/L BUN 13 (9-20) mg/dL Creatinine 0.74 (0.66-1.25) mg/dL Estimated GFR > 60.0 ML/MIN Glucose 222 H (74-106) mg/dL Calcium 9.1 (8.4-10.2) mg/dL Total Bilirubin 0.90 (0.2-1.3) mg/dL AST 28 (17-59) U/L ALT 20 (0-50) U/L Alkaline Phosphatase 89 (38-126) U/L Serum Total Protein 7.0 (6.3-8.2) g/dL Albumin 4.0 (3.5-5.0) g/dL Urine Color (YELLOW) Urine Appearance (CLEAR) Urine pH (5-6) Ur Specific [place] (1.005-1.025) Urine Protein (Negative) Urine Ketones (NEGATIVE) Urine Blood (0-5) Ramirez/ul Urine Nitrite (NEGATIVE) Urine Bilirubin (NEGATIVE) Urine Urobilinogen (0-1) mg/dL Ur Leukocyte Esterase (NEGATIVE) Urine WBC (Auto) (0-5) /HPF Urine RBC (Auto) (0-2) /HPF U Epithel Cells (Auto) (FEW) /HPF Urine Bacteria (Auto) (NEGATIVE) /HPF Urine Mucus (Auto) (NEGATIVE) /HPF Urine Culture Reflexed (NO) Urine Glucose (NEGATIVE) mg/dL Urine Opiates Level (NEGATIVE) Ur Methadone (NEGATIVE) Urine Barbiturates (NEGATIVE) Ur Phencyclidine (PCP) (NEGATIVE) Urine Amphetamine (NEGATIVE) U Benzodiazepine Level (NEGATIVE) Urine Cocaine (NEGATIVE) Urine Marijuana (THC) (NEGATIVE) SARS-CoV-2 Ag (Rapid) (NEGATIVE) - Progress Progress: improved Progress Note: 07/05/21 19:55 I talked to the patient's at length. I explained him all his lab results are within normal range. We also need COVID antigen test which is negative. Julián byrd is fully vaccinated. Patient has a history of melanoma and recently patient was seen by his oncologist and he has ordered MRI of his brain. It appears that his seizure activity might be related to that. At this point of time MRI is 1 option which may be able to give us some more answers for his seizure activity which is already scheduled for MRI for Wednesday morning which is in next 48 hours. I talked to the patient at length he understood all the conversation. I advised that if seizure activity happen again he needs to come back to the emergency room. 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 The patient was counseled regarding Diagnosis,Lab results, Imaging studies, need for follow up and when to return to the Emergency Room. Prescriptions given: Discharge Note I have spoken with the patient and/or caregivers. I have explained the patient's condition, diagnosis and treatment plan based on the information available to me at this time. I have answered the patient's and/or caregiver's questions and addressed any concerns. The patient and/or caregivers have as good understanding of the patient's diagnosis, condition and treatment plan as can be expected at this point. The vital signs have been stable. The patient's condition is stable and appropriate for discharge from the emergency department. The patient will pursue further outpatient evaluation with the primary care physician or other designated or consulting physician as outlined in the discharge instructions. The patient and/or caregivers are agreeable to this plan of care and follow-up instructions have been explained in detail. The patient and/or caregivers have received these instruction. The patient/and or caregivers are aware that any significant change in condition or worsening of symptoms should prompt an immediate return to this or the closest emergency department or call 911. BRITNEY NÚÑEZ was seen on 07/05/21 n the Emergency Room. At that time you were treated for an emergent condition, during your visit Laboratory, Radiology and/or other procedures may have been ordered. It is very important that you follow-up with your Primary Care Physician FOREIGN WILLIAMSON DO within the next 24-48 hours to review your Emergency Room visit and the final results of testing that was ordered. Some test results such as Urine Cultures, Blood Cultures, and other cultures if ordered will not be finalized for 24-48 hours. If you do not have a Primary Care Provider please call the medical records department at [phone] ext [phone] to obtain a copy of your results or you may sign into our patient portal to obtain these results by visiting us @ [email or web address] and completing the following steps: 1. Click on the Patient Portal link 2. Click the Patient Self Enrollment Link to complete the enrollment form and entering your 3. Once the enrollment form is completed you will receive an email with a temporary ID and password at the email address you provided. 4. Next choose a user name and password. Your user name must be at least 4 characters long and your password must be at least 4 characters long. 5. Choose a security question from the list and provide your answer to the question. If you already have signed into the Health Portal you may access your Health Care Information 04/01 by the following steps: 1. Login to our website @ [email or web address] 2. Enter your original user name and password. FAQS The [facility] Health Portal is an online tool that contains your Lab Results, Radiology Reports, Visit History, Discharge Instructions and Health Summary Lab and Radiology Results will not be available for 72 hours on the portal. The Portal is a secure site, passwords are encryted and URLs are re-written so they cannot be copied and pasted. You and authorized family members are the only ones who can access your Portal. Also there is a timeout feature that protects your information if you leave the Portal page open. If you have technical difficulty please use the Contact Us link on the page this will allow you to submit any questions you have regarding the Portal or you may contact the Medical Record Department at [phone] ext [phone]. If seizure recurs come back to the emergency room. Please keep your appointment for your MRI of the brain on Wednesday. Prescriptions: ondansetron HCL [Zofran] 4 mg PO Q6H PRN #30 tablet PRN Reason: Nausea
[2021-07-05 18:35] LABS: Absolute Neutrophil Ct (ANC) 6.19 (1.4-6.9); Basophil (Absolute #) 0.02 (0-0.4); Eosinophil % 0.2 % (0.00-5.0); Eosinophil (Absolute #) 0.02 (0-0.5); Hemoglobin 14.5 gm/dl (12.5-18.0); Lymphocyte (Absolute #) 2.67 (1.0-4.6); Mean Corpuscular Hemoglobin 28.7 pg (26-32); Mean Platelet Volume 10.6 fl (7.5-11.0); Monocyte (Absolute #) 0.99 (0.0-1.3); Neutrophil % 62.6 % (36.0-66.0); Platelet Count 267 K/mm3 (150-450); Red Blood Count 5.06 M/mm3 (4.1-5.6); White Blood Count 9.9 K/mm3 (4.0-10.5)
--- NOTE | 2021-07-05 18:47 | XRAY ---
Indication: Seizure. Comparison: September 29, 2019. PA/lateral chest again hyperinflated with new left base infiltrate versus atelectasis. Remaining lungs unremarkable. Heart not enlarged again with right Port-A-Cath. 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 Impression: New left base infiltrate versus atelectasis.
[2021-07-05 18:48] LABS: ALKALINE PHOSPHATASE 89 U/L (38-126); ANION GAP 16.4 MEQ/L (5-15); BLOOD UREA NITROGEN 13 mg/dL (9-20); CHLORIDE 93 mmol/L (98-107); Calcium 9.1 mg/dL (8.4-10.2); Carbon Dioxide 23 mmol/L (22-30); Creatinine 1 0.74 mg/dL (0.66-1.25); EST GLOMERULAR FILTRATION RATE > 60.0 ML/MIN; Glucose 222 mg/dL (74-106); Potassium 4.6 mmol/L (3.5-5.1); SGOT/AST 28 U/L (17-59); SGPT/ALT 20 U/L (0-50); SODIUM 128 mmol/L (137-145)
--- NOTE | 2021-07-05 18:49 | XRAY ---
Indication: Seizure. Pain following fall. Comparison: January 04, 2020. 3 view left shoulder demonstrates interval arthroplasty with intact bipolar prosthesis. Stable osteopenia and axilla livia dissection. No other bony, articular, or soft tissue abnormalities.
[2021-07-05 19:04] LABS: Appearance CLEAR (CLEAR); Bilirubin NEGATIVE (NEGATIVE); Blood NEGATIVE Ery/ul (0-5); Glucose 150 mg/dL (NEGATIVE); Ketones MODERATE (NEGATIVE); Leukocyte Esterase NEGATIVE (NEGATIVE); Mucus SLIGHT /HPF (NEGATIVE); Nitrite NEGATIVE (NEGATIVE); Protein,Urine Dip NEGATIVE (Negative); RBC 0-2 /HPF (0-2); Specific Gravity 1.017 (1.005-1.025); Urobilinogen NEGATIVE mg/dL (0-1); WBC 0-2 /HPF (0-5)
[2021-07-05 19:11] LABS: Bacteria NONE SEEN /HPF (NEGATIVE)
[2021-07-05 19:16] LABS: Amphetamine,Urine NEGATIVE (NEGATIVE); Barbiturate,Urine NEGATIVE (NEGATIVE); Benzodiazepine,Urine NEGATIVE (NEGATIVE); Cocaine,Urine NEGATIVE (NEGATIVE); Methadone,Urine NEGATIVE (NEGATIVE); Opiate,Urine NEGATIVE (NEGATIVE); PCP,Urine NEGATIVE (NEGATIVE); THC,Urine NEGATIVE (NEGATIVE)
[2021-07-05] MEDS ORDERED: Zofran 4 MG/2 ML VIAL ONE (19:19)
[2021-07-05] MEDS ORDERED: Zofran 4 MG/2 ML VIAL IV ONE (19:20)
[2021-07-05 19:45] LABS: COVID AG -BINAX NOW RAPID TEST NEGATIVE (NEGATIVE)
[2021-07-05] MEDS ORDERED: ZOFRAN ODT 4 MG ONE (20:31)
[2021-07-05 20:54] VITALS: BP 121/68; PULSE 72; O2SAT 97
--- NOTE | 2021-07-06 08:30 | XRAY ---
Indication: Seizure. Status post fall. Contusion. Multiple contiguous axial images obtained through the head without contrast. Comparison: None Age-appropriate global atrophy. No acute intracranial hemorrhage, abnormal extra-axial fluid collection, or mass effect. Fourth ventricle is midline without hydrocephalus. Blanton-white matter differentiation preserved. Bony calvarium intact. Visualized paranasal sinuses and mastoid air cells are clear. Impression: Negative CT head without contrast exam. Comment: Preliminary interpretation made by [facility]. No critical discrepancy.
== END 2021-07-05 21:03 | disposition home or self-care (01) ==
LOC: ED 17:45
DX: C79.70 Secondary malignant neoplasm of unspecified adrenal gland (principal); R56.9 Unspecified convulsions; M25.512 Pain in left shoulder; R51.9 Headache, unspecified; E78.5 Hyperlipidemia, unspecified; I10 Essential (primary) hypertension; J44.9 Chronic obstructive pulmonary disease, unspecified; E11.9 Type 2 diabetes mellitus without complications; Z79.84 Long term (current) use of oral hypoglycemic drugs; Z79.899 Other long term (current) drug therapy
CPT/HCPCS: 36000; 36415; 70450; 71046; 73030; 80053; 80307; 81001; 85025; 93005; 96374; 99000; 99284; 99291; J2405; Q0162

== ENCOUNTER 2021-08-16 14:51 | Observation (INO) | payer MEDICARE ==
[2021-08-16] MEDS ORDERED: Zofran 4 MG/2 ML VIAL IV ONE (15:23)
[2021-08-16] MEDS ORDERED: Reglan 10 MG/2 ML IV ONE (15:23)
[2021-08-16] MEDS ORDERED: Sodium Chloride 0.9% 1000 ML 1,000 ML IV STA (15:23)
[2021-08-16] MEDS ORDERED: Sodium Chloride 0.9% 1000 ML 1,000 ML ONE (15:31)
[2021-08-16] MEDS ORDERED: Reglan 10 MG/2 ML ONE (15:31)
[2021-08-16] MEDS ORDERED: Zofran 4 MG/2 ML VIAL ONE (15:31)
--- NOTE | 2021-08-16 15:53 | ERPHSYRPT ---
- History of Present Illness Time Seen by Provider: 08/16/21 15:00 Historian: patient Exam Limitations: no limitations Patient Subjective Stated Complaint: Pt skin pale, warm, dry. Pt extremely weak. Pt started a new chemo treatment last week that has made him very nauseous. Pt denies abdominal pain or vomiting. pt c/o constipation but did have bowel movement at 0400 today after enemas Triage Nursing Assessment: PT states "I started a new chemo treatment and it has made me so sick. Nothing is helping with nausea" Physician History: Patient is a 66-year-old male with metastatic malignant melanoma who presents to the emergency room with a complaint of severe nausea repeated vomiting and constipation with a slight bowel movement earlier this morning. He believes that the current chemotherapy regimen he is on causes these problems. He was taking the same medication in November for 1 week and became ill with nausea vomiting constipation and eventually had a seizure which might be related to his chemotherapy. He restarted the pills on and now has a recurrence of his nausea vomiting and constipation. Timing/Duration: week(s) (1) Activities at Onset: none Severity of Pain-Max: none Severity of Pain-Current: none Modifying Factors: Improves With: defecating, vomiting Associated Symptoms: loss of appetite, nausea, vomiting, other Previous symptoms: same symptoms as today Allergies/Adverse Reactions: meperidine [From Demerol] Adverse Reaction (Intermediate, Verified 07/05/21 17:49) Nausea Home Medications: Lovastatin 40 mg PO HS 02/01/17 [History] Omeprazole 20 mg PO DAILY 02/01/17 [History] Albuterol 2.5 mg/3 ml Neb [Proventil 2.5 mg/3 ml Neb] 2.5 mg IH UD PRN 02/08/20 [History] Albuterol 8 gm Mdi Hfa [Ventolin Hfa MDI] 8 gm IH UD PRN 02/08/20 [History] Arformoterol Tartrate [Brovana] 15 mcg IH BID 02/08/20 [History] Budesonide 0.5 mg/2 ml [Pulmicort 0.5 mg/2 ml Respules] 0.5 mg IH DAILY 02/08/20 [History] Ibuprofen [Advil] 200 mg PO UD PRN 02/08/20 [History] Gabapentin 300 mg [Neurontin 300 mg] 300 mg PO HS 05/24/21 [History] Glipizide [Glipizide ER] 5 mg PO DAILY 05/24/21 [History] Irbesartan 75 mg PO DAILY 05/24/21 [History] Hx Tetanus, Diphtheria Vaccination/Date Given: Yes Hx Influenza Vaccination/Date Given: Yes Hx Pneumococcal Vaccination/Date Given: Yes Immunizations Up to Date: Yes Travel Risk - International Travel Have you traveled outside of the country in past 3 weeks: No - Coronavirus Screening Are you exhibiting any of the following symptoms?: No Close contact with a COVID-19 positive Pt in past 14-21 Days: No - Vaccine Status Have you recieved a Covid-19 vaccination: Yes [employer] Of [employer]: [employer] - Vaccination Dates Date of 2cond Vaccination (if applicable): 2020 - Review of Systems Constitutional: Weakness, No Fever, No Chills Eyes: No Symptoms Ears, Nose, & Throat: No Symptoms Respiratory: No Cough, No Dyspnea Cardiac: No Chest Pain, No Edema, No Syncope Abdominal/Gastrointestinal: Nausea, Vomiting, Constipation, No Abdominal Pain, No Diarrhea Genitourinary Symptoms: No Dysuria Musculoskeletal: No Back Pain, No Neck Pain Skin: No Rash Neurological: No Dizziness, No Focal Weakness, No Sensory Changes Psychological: No Symptoms Endocrine: No Symptoms All Other Systems: Reviewed and Negative - Past Medical History Pertinent Past Medical History: Yes Neurological History: No Pertinent History ENT History: No Pertinent History Cardiac History: High Cholesterol, Hypertension, Other Respiratory History: COPD Endocrine Medical History: Diabetes Type II Musculoskeletal History: Other GI Medical History: GERD History: Other Psycho-Social History: No Pertinent History Male Reproductive Disorders: No Pertinent History Other Medical History: HX FX LEFT TIBIA 2003 TREATED WITH CASTING THEN BOOT WITHOUT RESIDUAL PROBLEMS. GERD. melanoma. Mass on the right kidney - Past Surgical History Past Surgical History: Yes Neuro Surgical History: No Pertinent History Cardiac: No Pertinent History Respiratory: No Pertinent History Gastrointestinal: No Pertinent History Genitourinary: Other Musculoskeletal: Orthopedic Surgery Male Surgical History: No Pertinent History Other Surgical History: kidney stone removal, wisdom teeth removed, MULTIPLE melanoma removed, LEFT ROTATOR CUFF REPAIR AND BICEP TENDON REPAIR. SURGICAL FLUSH OF POST OP INFECTION OF LEFT SHOULDER,left shoulder repair and antibiotic beads palced 05/29/2020 - Social History Smoking Status: Never smoker Exposure to second hand smoke: No Drug Use: none Patient Lives Alone: No - Nursing Vital Signs Nursing Vital Signs: Initial Vital Signs Temperature 98.4 F 08/16/21 14:52 Pulse Rate 84 08/16/21 14:52 Respiratory Rate 16 08/16/21 14:52 Blood Pressure 127/86 08/16/21 14:52 O2 Sat by Pulse Oximetry 94 L 08/16/21 14:52 Pain Scale Pain Intensity 0 - Physical Exam General Appearance: moderate distress, alert, other (Very pale) Eye Exam: PERRL/EOMI, eyes nml inspection, pale conjunctivae Ears, Nose, Throat Exam: normal ENT inspection, pharynx normal, moist mucous membranes Neck Exam: normal inspection, non-tender, supple, full range of motion Respiratory Exam: normal breath sounds, lungs clear, No respiratory distress Cardiovascular Exam: regular rate/rhythm, normal heart sounds Gastrointestinal/Abdomen Exam: soft, No tenderness, No mass Back Exam: normal inspection, normal range of motion, No CVA tenderness, No vertebral tenderness Extremity Exam: normal inspection, normal range of motion, pelvis stable Neurologic Exam: alert, oriented x 3, cooperative, normal mood/affect, nml cerebellar function, sensation nml, No motor deficits Skin Exam: normal color, warm, dry SpO2 Interpretation: normal SpO2: 94 O2 Delivery: Room Air - Course Nursing assessment & vital signs reviewed: Yes EKG Interpreted by Me: RATE (75), Sinus Rhythm, Non-specific ST Changes, Other (Left anterior fascicular block) - CT Exams Abdomen/Pelvis CT Interpretation: Tele-radiologist Report Ordered Tests: Active Orders 24 hr Category Date Time Status EKG-ER Only STAT Care 08/16/21 15:23 Active IV Insertion STAT Care 08/16/21 15:23 Active ABDOMEN AND PELVIS W/0 CONTRAS [CT] Stat Exams 08/16/21 15:24 Taken CHEST 1 VIEW (PORTABLE) Stat Exams 08/16/21 15:24 Taken AMYLASE Stat Lab 08/16/21 15:30 Completed BLOOD CULTURE Stat Lab 08/16/21 15:40 Received CBC W DIFF Stat Lab 08/16/21 15:30 Completed CMP Stat Lab 08/16/21 15:30 Completed LIPASE Stat Lab 08/16/21 15:30 Completed Lactic Acid Stat Lab 08/16/21 15:32 Completed PROTIME WITH INR Stat Lab 08/16/21 15:30 Completed TROPONIN Q3H Lab 08/16/21 15:30 Completed TROPONIN Q3H Lab 08/16/21 18:30 Ordered TROPONIN Q3H Lab 08/16/21 21:30 Ordered TROPONIN Q3H Lab 08/17/21 00:30 Ordered TROPONIN Q3H Lab 08/17/21 03:30 Ordered UA W/RFX UR CULTURE Stat Lab 08/16/21 15:24 Ordered Medication Summary Discontinued Medications Generic Name Dose Route Start Last Admin Trade Name Freq PRN Reason Stop Dose Admin Sodium Chloride 1,000 mls @ 999 mls/hr 08/16/21 15:23 08/16/21 15:33 Sodium Chloride 0.9% 1000 Ml IV 08/16/21 16:23 999 mls/hr .Q1H1M STA Administration Sodium Chloride Confirm 08/16/21 15:31 Sodium Chloride 0.9% 1000 Ml Administered 08/16/21 15:32 Dose 1,000 mls @ ud .ROUTE .STK-MED ONE Metoclopramide HCl 10 mg 08/16/21 15:23 08/16/21 15:33 Metoclopramide Hcl 10 Mg/2 Ml Vial IV 08/16/21 15:24 10 mg STAT ONE Administration Metoclopramide HCl Confirm 08/16/21 15:31 Metoclopramide Hcl 10 Mg/2 Ml Vial Administered 08/16/21 15:32 Dose 10 mg .ROUTE .STK-MED ONE Ondansetron HCl 4 mg 08/16/21 15:23 08/16/21 15:33 Ondansetron Hcl 4 Mg/2 Ml Vial IV 08/16/21 15:24 4 mg STAT ONE Administration Ondansetron HCl Confirm 08/16/21 15:31 Ondansetron Hcl 4 Mg/2 Ml Vial Administered 08/16/21 15:32 Dose 4 mg .ROUTE .STK-MED ONE Lab/Rad Data: Laboratory Result Diagrams 08/16/21 15:30 08/16/21 15:30 Laboratory Results 08/16/21 08/16/21 08/16/21 Range/Units 15:32 15:30 15:30 WBC (4.0-10.5) K/mm3 RBC (4.1-5.6) M/mm3 Hgb (12.5-18.0) gm/dl Hct (42-50) % MCV (78-100) fl MCH (26-32) pg MCHC (32-36) g/dl RDW (11.5-14.0) % Plt Count (150-450) K/mm3 MPV (7.5-11.0) fl Gran % (36.0-66.0) % Eos # (Auto) (0-0.5) Absolute Lymphs (auto) (1.0-4.6) Absolute Monos (auto) (0.0-1.3) Lymphocytes % (24.0-44.0) % Monocytes % (0.0-12.0) % Eosinophils % (0.00-5.0) % Basophils % (0.0-0.4) % Absolute Granulocytes (1.4-6.9) Basophils # (0-0.4) PT 13.7 H (9.4-12.5) SECONDS INR 1.16 (0.8-3.0) Sodium (137-145) mmol/L Potassium (3.5-5.1) mmol/L Chloride (98-107) mmol/L Carbon Dioxide (22-30) mmol/L Anion Gap (5-15) MEQ/L BUN (9-20) mg/dL Creatinine (0.66-1.25) mg/dL Estimated GFR ML/MIN Glucose (74-106) mg/dL Lactic Acid 3.0 H (0.4-2.0) Calcium (8.4-10.2) mg/dL Total Bilirubin (0.2-1.3) mg/dL AST (17-59) U/L ALT (0-50) U/L Alkaline Phosphatase (38-126) U/L Troponin I < 0.012 (0.000-0.034) ng/mL Serum Total Protein (6.3-8.2) g/dL Albumin (3.5-5.0) g/dL Amylase (30-110) U/L Lipase (23-300) U/L 08/16/21 08/16/21 Range/Units 15:30 15:30 WBC 9.2 (4.0-10.5) K/mm3 RBC 5.56 (4.1-5.6) M/mm3 Hgb 15.6 (12.5-18.0) gm/dl Hct 46.3 (42-50) % MCV 83.3 (78-100) fl MCH 28.1 (26-32) pg MCHC 33.7 (32-36) g/dl RDW 13.5 (11.5-14.0) % Plt Count 395 (150-450) K/mm3 MPV 10.8 (7.5-11.0) fl Gran % 62.5 (36.0-66.0) % Eos # (Auto) 0.03 (0-0.5) Absolute Lymphs (auto) 2.41 (1.0-4.6) Absolute Monos (auto) 1.02 (0.0-1.3) Lymphocytes % 26.1 (24.0-44.0) % Monocytes % 11.0 (0.0-12.0) % Eosinophils % 0.3 (0.00-5.0) % Basophils % 0.1 (0.0-0.4) % Absolute Granulocytes 5.77 (1.4-6.9) Basophils # 0.01 (0-0.4) PT (9.4-12.5) SECONDS INR (0.8-3.0) Sodium 126 L (137-145) mmol/L Potassium 4.8 (3.5-5.1) mmol/L Chloride 89 L (98-107) mmol/L Carbon Dioxide 25 (22-30) mmol/L Anion Gap 16.1 H (5-15) MEQ/L BUN 23 H (9-20) mg/dL Creatinine 0.99 (0.66-1.25) mg/dL Estimated GFR > 60.0 ML/MIN Glucose 340 H (74-106) mg/dL Lactic Acid (0.4-2.0) Calcium 10.4 H (8.4-10.2) mg/dL Total Bilirubin 0.50 (0.2-1.3) mg/dL AST 33 (17-59) U/L ALT 32 (0-50) U/L Alkaline Phosphatase 110 (38-126) U/L Troponin I (0.000-0.034) ng/mL Serum Total Protein 8.4 H (6.3-8.2) g/dL Albumin 4.3 (3.5-5.0) g/dL Amylase 65 (30-110) U/L Lipase 68 (23-300) U/L - Progress Progress: improved Discussed with Dr.: Villaseñor - Departure Departure Disposition: Observation Clinical Impression: Dehydration, Hyponatremia, Melanoma metastatic to adrenal gland Condition: Fair Critical Care Time: No Referrals: FOREIGN WILLIAMSON DO [Primary Care Provider] - Follow up/PCP as directed
[2021-08-16 16:11] LABS: Absolute Neutrophil Ct (ANC) 5.77 (1.4-6.9); Basophil (Absolute #) 0.01 (0-0.4); Eosinophil % 0.3 % (0.00-5.0); Eosinophil (Absolute #) 0.03 (0-0.5); Hematocrit 46.3 % (42-50); Hemoglobin 15.6 gm/dl (12.5-18.0); Lymphocyte (Absolute #) 2.41 (1.0-4.6); Lymphocytes % 26.1 % (24.0-44.0); Mean Cell Volume 83.3 fl (78-100); Mean Corpuscular Hemoglobin 28.1 pg (26-32); Mean Corpuscular Hgb Concent. 33.7 g/dl (32-36); Mean Platelet Volume 10.8 fl (7.5-11.0); Monocyte (Absolute #) 1.02 (0.0-1.3); Neutrophil % 62.5 % (36.0-66.0); Platelet Count 395 K/mm3 (150-450); Red Blood Count 5.56 M/mm3 (4.1-5.6); Red Cell Distribution Width 13.5 % (11.5-14.0); White Blood Count 9.2 K/mm3 (4.0-10.5)
[2021-08-16 16:12] LABS: INR 1.16 (0.8-3.0); PROTIME 13.7 SECONDS (9.4-12.5)
[2021-08-16 16:17] LABS: ALBUMIN 4.3 g/dL (3.5-5.0); ALKALINE PHOSPHATASE 110 U/L (38-126); AMYLASE 65 U/L (30-110); ANION GAP 16.1 MEQ/L (5-15); BLOOD UREA NITROGEN 23 mg/dL (9-20); CHLORIDE 89 mmol/L (98-107); Calcium 10.4 mg/dL (8.4-10.2); Carbon Dioxide 25 mmol/L (22-30); Creatinine 1 0.99 mg/dL (0.66-1.25); EST GLOMERULAR FILTRATION RATE > 60.0 ML/MIN; Glucose 340 mg/dL (74-106); LIPASE 68 U/L (23-300); Potassium 4.8 mmol/L (3.5-5.1); SGOT/AST 33 U/L (17-59); SGPT/ALT 32 U/L (0-50); SODIUM 126 mmol/L (137-145); Total Protein 8.4 g/dL (6.3-8.2)
[2021-08-16] MEDS ORDERED: Hydromorphone 1 mg/ml Injection IV PRN (17:39)
[2021-08-16] MEDS ORDERED: Zofran 4 MG/2 ML VIAL IV PRN (17:39)
[2021-08-16 18:07] LABS: Appearance CLEAR (CLEAR); Bilirubin NEGATIVE (NEGATIVE); Blood NEGATIVE Ery/ul (0-5); Glucose >=500 mg/dL (NEGATIVE); Hyaline Casts 0-2 /LPF (0-2); Ketones SMALL (NEGATIVE); Leukocyte Esterase NEGATIVE (NEGATIVE); Mucus SLIGHT /HPF (NEGATIVE); Nitrite NEGATIVE (NEGATIVE); Protein,Urine Dip NEGATIVE (Negative); RBC 0-2 /HPF (0-2); Urobilinogen NEGATIVE mg/dL (0-1); WBC 0-2 /HPF (0-5)
[2021-08-16 18:08] LABS: Bacteria NONE SEEN /HPF (NEGATIVE)
[2021-08-16] MEDS: Sodium Chloride 0.9% 1000 ML 1,000 ML IV SCH (18:10)
[2021-08-16] MEDS: Reglan 10 MG/2 ML IV SCH (18:10)
[2021-08-16 18:33] LABS: INFLUENZA A NEGATIVE (NEGATIVE); INFLUENZA B NEGATIVE (NEGATIVE); RESPIRATORY SYNCTIAL VIRUS NEGATIVE (Negative); SARS-CoV-2 Xpert Express NEGATIVE (NEGATIVE)
--- NOTE | 2021-08-16 19:13 | XRAY ---
Indication: Pain, nausea, and constipation. Multiple contiguous axial images obtained through the abdomen and pelvis without contrast. Comparison: May 15, 2021. Lung bases again demonstrates minimal subsegmental atelectasis/scarring. No infiltrate or effusion. Heart not enlarged. Again small hiatal hernia. Noncontrasted stomach and bowel loops nonobstructed. Again scattered colonic diverticulosis without diverticulitis. There is little colonic fecal debris. Sigmoid demonstrates fluid leveling favoring diarrhea. Again cholecystectomy and nonspecific right renal punctate calcification. No free fluid/air. Remaining liver, pancreas, spleen, adrenal glands, kidneys, ureters, and bladder are unremarkable for noncontrast exam. Again mild scattered aortoiliac calcifications. Osseous structures intact again with minimal lower lumbar degenerative changes. No ventral or inguinal hernias. Impression: 1. Again small hiatal hernia, colonic diverticulosis, right renal punctate calcification, and chronic bony findings. 2. Remaining CT abdomen/pelvis without contrast exam is negative. Comment: Preliminary interpretation made by C. No critical discrepancy.
--- NOTE | 2021-08-16 19:15 | XRAY ---
Indication: Pain and nausea. History of melanoma. Comparison: July 05, 2021. Portable chest again hyperinflated. Minimal bibasilar subsegmental atelectasis/scarring. No focal infiltrate, consolidation, or large effusion. Heart not enlarged again with right Port-A-Cath. Bony thorax intact again with osteopenia, degenerative changes, left shoulder arthroplasty, and left axilla livia dissection. Impression: Nonacute chest with chronic features.
[2021-08-16] MEDS: HUMULIN R SQ PRN (21:58)
[2021-08-16] MEDS ORDERED: NEURONTIN 300 MG PO SCH (22:00)
[2021-08-17] MEDS: Reglan 10 MG/2 ML IV SCH ×2 (00:04→06:05)
[2021-08-17] MEDS: Sodium Chloride 0.9% 1000 ML 1,000 ML IV SCH ×2 (00:04→06:09)
[2021-08-17] MEDS ORDERED: Reglan 10 MG/2 ML ONE (06:04)
[2021-08-17] MEDS ORDERED: Sodium Chloride 0.9% 1000 ML 1,000 ML ONE (06:08)
[2021-08-17 07:04] LABS: Absolute Neutrophil Ct (ANC) 2.13 (1.4-6.9); Basophil (Absolute #) 0.01 (0-0.4); Eosinophil % 1.8 % (0.00-5.0); Hematocrit 37.7 % (42-50); Hemoglobin 12.5 gm/dl (12.5-18.0); Lymphocyte (Absolute #) 2.67 (1.0-4.6); Lymphocytes % 47.2 % (24.0-44.0); Mean Cell Volume 85.7 fl (78-100); Mean Corpuscular Hemoglobin 28.4 pg (26-32); Mean Corpuscular Hgb Concent. 33.2 g/dl (32-36); Mean Platelet Volume 10.8 fl (7.5-11.0); Monocyte (Absolute #) 0.75 (0.0-1.3); Monocytes % 13.3 % (0.0-12.0); Neutrophil % 37.5 % (36.0-66.0); Platelet Count 316 K/mm3 (150-450); Red Cell Distribution Width 13.5 % (11.5-14.0); White Blood Count 5.7 K/mm3 (4.0-10.5)
[2021-08-17 07:31] LABS: ALBUMIN 3.2 g/dL (3.5-5.0); ALKALINE PHOSPHATASE 80 U/L (38-126); ANION GAP 10.9 MEQ/L (5-15); BLOOD UREA NITROGEN 12 mg/dL (9-20); CHLORIDE 103 mmol/L (98-107); Calcium 8.1 mg/dL (8.4-10.2); Carbon Dioxide 20 mmol/L (22-30); Creatinine 1 0.56 mg/dL (0.66-1.25); EST GLOMERULAR FILTRATION RATE > 60.0 ML/MIN; Glucose 88 mg/dL (74-106); Potassium 3.8 mmol/L (3.5-5.1); SGOT/AST 32 U/L (17-59); SGPT/ALT 25 U/L (0-50); SODIUM 130 mmol/L (137-145); Total Protein 6.6 g/dL (6.3-8.2)
--- NOTE | 2021-08-17 11:34 | PCM.SSS ---
History of Present Illness - Chief Complaint Chief Complaint: Dehydration History of Present Illness: is a 66 year old male pt of Dr. Amaro with metastatic malignant melanoma (to adrenal gland) who was admitted through the ER wtih N/V and dehydration. His lactic acid was 3.0 on admission. CXR non acute and CT abd/pelvis nonacute. This morning he is feeling much better. Nausea is much dimished with IV fluids and reglan and he has tolerated po. Would like to be discharged to home. Lives with his . He started a chemotherapy regimen last Wednesday, then stopped it by Wednesday (3d ago). He had taken this regimen before with good results (with repect to the cancer) but lots of side effects (including N/V and seizure). He was unable to eat most of the week and only tolerated sips for several days prior to admission. He will be discharged to home today. F/u with Dr. Sebastian tomorrow as scheduled. - Review of Systems Constitutional: Weakness Abdominal/Gastrointestinal: Nausea, Vomiting, Constipation Neurological: Dizziness Psychological: Other (trouble sleeping d/t nausea) All Other Systems: Reviewed and Negative Medications & Allergies Home Medications: Home Medication List Lovastatin 40 mg PO HS 02/01/17 [History Confirmed 08/17/21] Omeprazole 20 mg PO DAILY 02/01/17 [History Confirmed 08/17/21] Albuterol 2.5 mg/3 ml Neb [Proventil 2.5 mg/3 ml Neb] 2.5 mg IH UD PRN 02/08/20 [History Confirmed 08/17/21] Albuterol 8 gm Mdi Hfa [Ventolin Hfa MDI] 8 gm IH UD PRN 02/08/20 [History Confirmed 08/17/21] Arformoterol Tartrate [Brovana] 15 mcg IH BID 02/08/20 [History Confirmed 08/17/21] Budesonide 0.5 mg/2 ml [Pulmicort 0.5 mg/2 ml Respules] 0.5 mg IH DAILY 02/08/20 [History Confirmed 08/17/21] Ibuprofen [Advil] 200 mg PO UD PRN 02/08/20 [History Confirmed 08/17/21] Insulin Regular, Human [Humulin R U-500 Kwikpen] 500 unit SQ TIDAC 30 Days 05/20/21 [Rx Confirmed 08/17/21] Gabapentin 300 mg [Neurontin 300 mg] 300 mg PO HS 05/24/21 [History Co nfirmed 08/17/21] Glipizide [Glipizide ER] 5 mg PO DAILY 05/24/21 [History Confirmed 08/17/21] Irbesartan 75 mg PO DAILY 05/24/21 [History Confirmed 08/17/21] Acetaminophen 325 mg [Tylenol 325 mg] 650 mg PO Q4H PRN PRN tablet 05/25/21 [Rx Confirmed 08/17/21] Hydrocortisone 50 mg PO DAILY #150 tablet 05/25/21 [Rx Confirmed 08/17/21] Magnesium Oxide 400 mg [Mag-Ox 400] 400 mg PO DAILY #30 tablet 05/25/21 [Rx Confirmed 08/17/21] ondansetron HCL [Zofran] 4 mg PO Q6H PRN #30 tablet 07/05/21 [Rx Confirmed 08/17/21] Prochlorperazine Maleate 5 mg* [Compazine 5 MG] 5 mg PO TID PRN #15 tablet 08/17/21 [Rx] Allergies/Adverse Reactions: Allergies Allergy/AdvReac Type Severity Reaction Status Date / Time meperidine [From Demerol] AdvReac Intermediate Nausea Verified 07/05/21 17:49 - Past Medical History Past Medical History: Yes Neurological History: No Pertinent History ENT History: No Pertinent History Cardiac History: High Cholesterol, Hypertension, Other Respiratory History: COPD Endocrine Medical History: Diabetes Type II Musculoskelatal History: Other GI Medical History: GERD History: Other Pyscho-Social History: No Pertinent History Male Reproductive Disorders: No Pertinent History Comment: HX FX LEFT TIBIA 2003 TREATED WITH CASTING THEN BOOT WITHOUT RESIDUAL PROBLEMS. GERD. melanoma. Mass on the right kidney - Past Surgical History Past Surgical History: Yes Neuro Surgical History: No Pertinent History Cardiac History: No Pertinent History Respiratory Surgery: No Pertinent History GI Surgical History: No Pertinent History Genitourinary Surgical Hx: Other Musculskeletal Surgical Hx: Orthopedic Surgery Male Surgical History: No Pertinent History Other Surgical History: kidney stone removal, wisdom teeth removed, MULTIPLE melanoma removed, LEFT ROTATOR CUFF REPAIR AND BICEP TENDON REPAIR. SURGICAL FLUSH OF POST OP INFECTION OF LEFT SHOULDER,left shoulder repair and antibiotic beads palced 05/29/2020 - Social History Smoking Status: Never smoker Exposure to second hand smoke: Yes Alcohol: None Drug Use: none - Physical Exam Vital Signs: Vital Signs - 24 hr Temp Pulse Resp BP Pulse Ox 08/17/21 07:51 97.1 F 66 18 110/59 94 L 08/17/21 03:55 97.3 F 65 24 104/69 95 08/17/21 00:26 97.7 F 62 18 117/68 93 L 08/16/21 20:00 98 F 72 12 129/63 96 08/16/21 19:23 98 F 72 12 129/63 96 08/16/21 17:37 94 L 08/16/21 17:18 80 17 129/74 99 08/16/21 16:45 76 16 123/69 96 08/16/21 14:52 98.4 F 84 16 127/86 94 L General Appearance: no apparent distress, alert Neurologic Exam: oriented x 3, cooperative, normal mood/affect Eye Exam: eyes nml inspection Ears, Nose, Throat Exam: moist mucous membranes Neck Exam: normal inspection, non-tender, No lymphadenopathy Respiratory Exam: normal breath sounds, lungs clear, No crackles/rales, No rhonchi, No wheezing Cardiovascular Exam: regular rate/rhythm, normal heart sounds, No murmur Gastrointestinal/Abdomen Exam: soft, normal bowel sounds, No tenderness, No distention, No mass, No guarding, No rebound Back Exam: normal inspection, No rash Extremity Exam: normal inspection, No pedal edema, No swelling Skin Exam: normal color, warm, dry, No rash Results - Labs Lab/Micro Results: Lab Results-Last 24 Hours 08/16/21 08/16/21 08/16/21 Range/Units 15:30 15:30 15:30 WBC 9.2 (4.0-10.5) K/mm3 RBC 5.56 (4.1-5.6) M/mm3 Hgb 15.6 (12.5-18.0) gm/dl Hct 46.3 (42-50) % MCV 83.3 (78-100) fl MCH 28.1 (26-32) pg MCHC 33.7 (32-36) g/dl RDW 13.5 (11.5-14.0) % Plt Count 395 (150-450) K/mm3 MPV 10.8 (7.5-11.0) fl Gran % 62.5 (36.0-66.0) % Eos # (Auto) 0.03 (0-0.5) Absolute Lymphs (auto) 2.41 (1.0-4.6) Absolute Monos (auto) 1.02 (0.0-1.3) Lymphocytes % 26.1 (24.0-44.0) % Monocytes % 11.0 (0.0-12.0) % Eosinophils % 0.3 (0.00-5.0) % Basophils % 0.1 (0.0-0.4) % Absolute Granulocytes 5.77 (1.4-6.9) Basophils # 0.01 (0-0.4) PT 13.7 H (9.4-12.5) SECONDS INR 1.16 (0.8-3.0) Sodium 126 L (137-145) mmol/L Potassium 4.8 (3.5-5.1) mmol/L Chloride 89 L (98-107) mmol/L Carbon Dioxide 25 (22-30) mmol/L Anion Gap 16.1 H (5-15) MEQ/L BUN 23 H (9-20) mg/dL Creatinine 0.99 (0.66-1.25) mg/dL Estimated GFR > 60.0 ML/MIN Glucose 340 H (74-106) mg/dL POC Glucometer (74 to 106) mg/dL Hemoglobin A1c (4.5-6.0) % Lactic Acid (0.4-2.0) Calcium 10.4 H (8.4-10.2) mg/dL Total Bilirubin 0.50 (0.2-1.3) mg/dL AST 33 (17-59) U/L ALT 32 (0-50) U/L Alkaline Phosphatase 110 (38-126) U/L Troponin I (0.000-0.034) ng/mL Serum Total Protein 8.4 H (6.3-8.2) g/dL Albumin 4.3 (3.5-5.0) g/dL Amylase 65 (30-110) U/L Lipase 68 (23-300) U/L Urine Color (YELLOW) Urine Appearance (CLEAR) Urine pH (5-6) Ur Specific [place] (1.005-1.025) Urine Protein (Negative) Urine Ketones (NEGATIVE) Urine Blood (0-5) Ramirez/ul Urine Nitrite (NEGATIVE) Urine Bilirubin (NEGATIVE) Urine Urobilinogen (0-1) mg/dL Ur Leukocyte Esterase (NEGATIVE) Urine WBC (Auto) (0-5) /HPF Urine RBC (Auto) (0-2) /HPF U Hyaline Cast (Auto) (0-2) /LPF U Epithel Cells (Auto) (FEW) /HPF Urine Bacteria (Auto) (NEGATIVE) /HPF Urine Mucus (Auto) (NEGATIVE) /HPF Urine Culture Reflexed (NO) Urine Glucose (NEGATIVE) mg/dL Influenza Type A Ag (NEGATIVE) Influenza Type B Ag (NEGATIVE) RSV (PCR) (Negative) SARS-CoV-2 (PCR) (NEGATIVE) 08/16/21 08/16/21 08/16/21 Range/Units 15:30 15:32 17:36 WBC (4.0-10.5) K/mm3 RBC (4.1-5.6) M/mm3 Hgb (12.5-18.0) gm/dl Hct (42-50) % MCV (78-100) fl MCH (26-32) pg MCHC (32-36) g/dl RDW (11.5-14.0) % Plt Count (150-450) K/mm3 MPV (7.5-11.0) fl Gran % (36.0-66.0) % Eos # (Auto) (0-0.5) Absolute Lymphs (auto) (1.0-4.6) Absolute Monos (auto) (0.0-1.3) Lymphocytes % (24.0-44.0) % Monocytes % (0.0-12.0) % Eosinophils % (0.00-5.0) % Basophils % (0.0-0.4) % Absolute Granulocytes (1.4-6.9) Basophils # (0-0.4) PT (9.4-12.5) SECONDS INR (0.8-3.0) Sodium (137-145) mmol/L Potassium (3.5-5.1) mmol/L Chloride (98-107) mmol/L Carbon Dioxide (22-30) mmol/L Anion Gap (5-15) MEQ/L BUN (9-20) mg/dL Creatinine (0.66-1.25) mg/dL Estimated GFR ML/MIN Glucose (74-106) mg/dL POC Glucometer (74 to 106) mg/dL Hemoglobin A1c (4.5-6.0) % Lactic Acid 3.0 H 3.0 H (0.4-2.0) Calcium (8.4-10.2) mg/dL Total Bilirubin (0.2-1.3) mg/dL AST (17-59) U/L ALT (0-50) U/L Alkaline Phosphatase (38-126) U/L Troponin I < 0.012 (0.000-0.034) ng/mL Serum Total Protein (6.3-8.2) g/dL Albumin (3.5-5.0) g/dL Amylase (30-110) U/L Lipase (23-300) U/L Urine Color (YELLOW) Urine Appearance (CLEAR) Urine pH (5-6) Ur Specific [place] (1.005-1.025) Urine Protein (Negative) Urine Ketones (NEGATIVE) Urine Blood (0-5) Ramirez/ul Urine Nitrite (NEGATIVE) Urine Bilirubin (NEGATIVE) Urine Urobilinogen (0-1) mg/dL Ur Leukocyte Esterase (NEGATIVE) Urine WBC (Auto) (0-5) /HPF Urine RBC (Auto) (0-2) /HPF U Hyaline Cast (Auto) (0-2) /LPF U Epithel Cells (Auto) (FEW) /HPF Urine Bacteria (Auto) (NEGATIVE) /HPF Urine Mucus (Auto) (NEGATIVE) /HPF Urine Culture Reflexed (NO) Urine Glucose (NEGATIVE) mg/dL Influenza Type A Ag (NEGATIVE) Influenza Type B Ag (NEGATIVE) RSV (PCR) (Negative) SARS-CoV-2 (PCR) (NEGATIVE) 08/16/21 08/16/21 08/16/21 Range/Units 17:44 17:54 18:32 WBC (4.0-10.5) K/mm3 RBC (4.1-5.6) M/mm3 Hgb (12.5-18.0) gm/dl Hct (42-50) % MCV (78-100) fl MCH (26-32) pg MCHC (32-36) g/dl RDW (11.5-14.0) % Plt Count (150-450) K/mm3 MPV (7.5-11.0) fl Gran % (36.0-66.0) % Eos # (Auto) (0-0.5) Absolute Lymphs (auto) (1.0-4.6) Absolute Monos (auto) (0.0-1.3) Lymphocytes % (24.0-44.0) % Monocytes % (0.0-12.0) % Eosinophils % (0.00-5.0) % Basophils % (0.0-0.4) % Absolute Granulocytes (1.4-6.9) Basophils # (0-0.4) PT (9.4-12.5) SECONDS INR (0.8-3.0) Sodium (137-145) mmol/L Potassium (3.5-5.1) mmol/L Chloride (98-107) mmol/L Carbon Dioxide (22-30) mmol/L Anion Gap (5-15) MEQ/L BUN (9-20) mg/dL Creatinine (0.66-1.25) mg/dL Estimated GFR ML/MIN Glucose (74-106) mg/dL POC Glucometer (74 to 106) mg/dL Hemoglobin A1c (4.5-6.0) % Lactic Acid (0.4-2.0) Calcium (8.4-10.2) mg/dL Total Bilirubin (0.2-1.3) mg/dL AST (17-59) U/L ALT (0-50) U/L Alkaline Phosphatase (38-126) U/L Troponin I < 0.012 (0.000-0.034) ng/mL Serum Total Protein (6.3-8.2) g/dL Albumin (3.5-5.0) g/dL Amylase (30-110) U/L Lipase (23-300) U/L Urine Color YELLOW (YELLOW) Urine Appearance CLEAR (CLEAR) Urine pH 6.0 (5-6) Ur Specific [place] 1.010 (1.005-1.025) Urine Protein NEGATIVE (Negative) Urine Ketones SMALL (NEGATIVE) Urine Blood NEGATIVE (0-5) Ramirez/ul Urine Nitrite NEGATIVE (NEGATIVE) Urine Bilirubin NEGATIVE (NEGATIVE) Urine Urobilinogen NEGATIVE (0-1) mg/dL Ur Leukocyte Esterase NEGATIVE (NEGATIVE) Urine WBC (Auto) 0-2 (0-5) /HPF Urine RBC (Auto) 0-2 (0-2) /HPF U Hyaline Cast (Auto) 0-2 (0-2) /LPF U Epithel Cells (Auto) NONE (FEW) /HPF Urine Bacteria (Auto) NONE SEEN (NEGATIVE) /HPF Urine Mucus (Auto) SLIGHT (NEGATIVE) /HPF Urine Culture Reflexed NO (NO) Urine Glucose >=500 (NEGATIVE) mg/dL Influenza Type A Ag NEGATIVE (NEGATIVE) Influenza Type B Ag NEGATIVE (NEGATIVE) RSV (PCR) NEGATIVE (Negative) SARS-CoV-2 (PCR) NEGATIVE (NEGATIVE) 08/17/21 08/17/21 08/17/21 Range/Units 00:48 06:30 06:56 WBC 5.7 (4.0-10.5) K/mm3 RBC 4.40 (4.1-5.6) M/mm3 Hgb 12.5 (12.5-18.0) gm/dl Hct 37.7 L (42-50) % MCV 85.7 (78-100) fl MCH 28.4 (26-32) pg MCHC 33.2 (32-36) g/dl RDW 13.5 (11.5-14.0) % Plt Count 316 (150-450) K/mm3 MPV 10.8 (7.5-11.0) fl Gran % 37.5 (36.0-66.0) % Eos # (Auto) 0.10 (0-0.5) Absolute Lymphs (auto) 2.67 (1.0-4.6) Absolute Monos (auto) 0.75 (0.0-1.3) Lymphocytes % 47.2 H (24.0-44.0) % Monocytes % 13.3 H (0.0-12.0) % Eosinophils % 1.8 (0.00-5.0) % Basophils % 0.2 (0.0-0.4) % Absolute Granulocytes 2.13 (1.4-6.9) Basophils # 0.01 (0-0.4) PT (9.4-12.5) SECONDS INR (0.8-3.0) Sodium (137-145) mmol/L Potassium (3.5-5.1) mmol/L Chloride (98-107) mmol/L Carbon Dioxide (22-30) mmol/L Anion Gap (5-15) MEQ/L BUN (9-20) mg/dL Creatinine (0.66-1.25) mg/dL Estimated GFR ML/MIN Glucose (74-106) mg/dL POC Glucometer 116 H (74 to 106) mg/dL Hemoglobin A1c 9.77 H (4.5-6.0) % Lactic Acid (0.4-2.0) Calcium (8.4-10.2) mg/dL Total Bilirubin (0.2-1.3) mg/dL AST (17-59) U/L ALT (0-50) U/L Alkaline Phosphatase (38-126) U/L Troponin I (0.000-0.034) ng/mL Serum Total Protein (6.3-8.2) g/dL Albumin (3.5-5.0) g/dL Amylase (30-110) U/L Lipase (23-300) U/L Urine Color (YELLOW) Urine Appearance (CLEAR) Urine pH (5-6) Ur Specific [place] (1.005-1.025) Urine Protein (Negative) Urine Ketones (NEGATIVE) Urine Blood (0-5) Ramirez/ul Urine Nitrite (NEGATIVE) Urine Bilirubin (NEGATIVE) Urine Urobilinogen (0-1) mg/dL Ur Leukocyte Esterase (NEGATIVE) Urine WBC (Auto) (0-5) /HPF Urine RBC (Auto) (0-2) /HPF U Hyaline Cast (Auto) (0-2) /LPF U Epithel Cells (Auto) (FEW) /HPF Urine Bacteria (Auto) (NEGATIVE) /HPF Urine Mucus (Auto) (NEGATIVE) /HPF Urine Culture Reflexed (NO) Urine Glucose (NEGATIVE) mg/dL Influenza Type A Ag (NEGATIVE) Influenza Type B Ag (NEGATIVE) RSV (PCR) (Negative) SARS-CoV-2 (PCR) (NEGATIVE) 08/17/21 08/17/21 Range/Units 06:56 11:26 WBC (4.0-10.5) K/mm3 RBC (4.1-5.6) M/mm3 Hgb (12.5-18.0) gm/dl Hct (42-50) % MCV (78-100) fl MCH (26-32) pg MCHC (32-36) g/dl RDW (11.5-14.0) % Plt Count (150-450) K/mm3 MPV (7.5-11.0) fl Gran % (36.0-66.0) % Eos # (Auto) (0-0.5) Absolute Lymphs (auto) (1.0-4.6) Absolute Monos (auto) (0.0-1.3) Lymphocytes % (24.0-44.0) % Monocytes % (0.0-12.0) % Eosinophils % (0.00-5.0) % Basophils % (0.0-0.4) % Absolute Granulocytes (1.4-6.9) Basophils # (0-0.4) PT (9.4-12.5) SECONDS INR (0.8-3.0) Sodium 130 L (137-145) mmol/L Potassium 3.8 D (3.5-5.1) mmol/L Chloride 103 D (98-107) mmol/L Carbon Dioxide 20 L (22-30) mmol/L Anion Gap 10.9 (5-15) MEQ/L BUN 12 (9-20) mg/dL Creatinine 0.56 L (0.66-1.25) mg/dL Estimated GFR > 60.0 ML/MIN Glucose 88 (74-106) mg/dL POC Glucometer 286 H (74 to 106) mg/dL Hemoglobin A1c (4.5-6.0) % Lactic Acid (0.4-2.0) Calcium 8.1 L D (8.4-10.2) mg/dL Total Bilirubin 0.40 (0.2-1.3) mg/dL AST 32 (17-59) U/L ALT 25 (0-50) U/L Alkaline Phosphatase 80 (38-126) U/L Troponin I (0.000-0.034) ng/mL Serum Total Protein 6.6 (6.3-8.2) g/dL Albumin 3.2 L (3.5-5.0) g/dL Amylase (30-110) U/L Lipase (23-300) U/L Urine Color (YELLOW) Urine Appearance (CLEAR) Urine pH (5-6) Ur Specific [place] (1.005-1.025) Urine Protein (Negative) Urine Ketones (NEGATIVE) Urine Blood (0-5) Ramirez/ul Urine Nitrite (NEGATIVE) Urine Bilirubin (NEGATIVE) Urine Urobilinogen (0-1) mg/dL Ur Leukocyte Esterase (NEGATIVE) Urine WBC (Auto) (0-5) /HPF Urine RBC (Auto) (0-2) /HPF U Hyaline Cast (Auto) (0-2) /LPF U Epithel Cells (Auto) (FEW) /HPF Urine Bacteria (Auto) (NEGATIVE) /HPF Urine Mucus (Auto) (NEGATIVE) /HPF Urine Culture Reflexed (NO) Urine Glucose (NEGATIVE) mg/dL Influenza Type A Ag (NEGATIVE) Influenza Type B Ag (NEGATIVE) RSV (PCR) (Negative) SARS-CoV-2 (PCR) (NEGATIVE) Accuchecks Date 08/17/21 Time 00:00 - Radiology Impressions Radiology Exams & Impressions: Radiology Procedures Category Date Time Status ABDOMEN AND PELVIS W/0 CONTRAS [CT] Stat Exams 08/16/21 15:24 Completed CHEST 1 VIEW (PORTABLE) Stat Exams 08/16/21 15:24 Completed Assessment/Plan (1) Nausea & vomiting Current Visit: Yes Status: Resolved Qualifiers: Vomiting type: unspecified Qualified Code(s): R11.2 - Nausea with vomiting, unspecified Assessment & Plan: He is feeling much better. May not be back to baseline, but with this pt with chronic illness, frequent medical treatments, and an appointment coming up tomorrow, will go ahead and discharge to home today. Code(s): R11.2 - NAUSEA WITH VOMITING, UNSPECIFIED (2) Dehydration Current Visit: Yes Status: Resolved Code(s): E86.0 - DEHYDRATION (3) Hyponatremia Current Visit: Yes Status: Acute Assessment & Plan: much better today, from 126 to 130. Code(s): E87.1 - HYPO-OSMOLALITY AND HYPONATREMIA (4) Melanoma metastatic to adrenal gland Current Visit: Yes Status: Chronic Code(s): C43.9 - MALIGNANT MELANOMA OF SKIN, UNSPECIFIED; C79.70 - SECONDARY MALIGNANT NEOPLASM OF UNSPECIFIED ADRENAL GLAND Hospital Summary - Hospital Course Hospital Course: Pt is a 66 yo male with metastatic malignant melanoma who was admitted through ER with nausea/vomited related to his chemotherapy regimen. Was treated with IV fluids and IV reglan. Will be sent home with po compazine prn. F/u with Dr. Sebastian tomorrow as previously scheduled. - Vitals & Intake/Output Vital Signs: Vital Signs Temperature 97.1 F 08/17/21 07:51 Pulse Rate 66 08/17/21 07:51 Respiratory Rate 18 08/17/21 07:51 Blood Pressure 110/59 08/17/21 07:51 O2 Sat by Pulse Oximetry 94 L 08/17/21 07:51 Intake & Output: Intake & Output 08/14/21 08/15/21 08/16/21 08/17/21 11:59 11:59 11:59 11:59 Intake Total 360 Output Total 650 Balance -290 Weight 77.111 kg - Lab Result Diagrams: 08/17/21 06:56 08/17/21 06:56 Lab Results-Last 24 Hrs: Lab Results-Last 24 Hours 08/16/21 08/16/21 08/16/21 Range/Units 15:30 15:30 15:30 WBC 9.2 (4.0-10.5) K/mm3 RBC 5.56 (4.1-5.6) M/mm3 Hgb 15.6 (12.5-18.0) gm/dl Hct 46.3 (42-50) % MCV 83.3 (78-100) fl MCH 28.1 (26-32) pg MCHC 33.7 (32-36) g/dl RDW 13.5 (11.5-14.0) % Plt Count 395 (150-450) K/mm3 MPV 10.8 (7.5-11.0) fl Gran % 62.5 (36.0-66.0) % Eos # (Auto) 0.03 (0-0.5) Absolute Lymphs (auto) 2.41 (1.0-4.6) Absolute Monos (auto) 1.02 (0.0-1.3) Lymphocytes % 26.1 (24.0-44.0) % Monocytes % 11.0 (0.0-12.0) % Eosinophils % 0.3 (0.00-5.0) % Basophils % 0.1 (0.0-0.4) % Absolute Granulocytes 5.77 (1.4-6.9) Basophils # 0.01 (0-0.4) PT 13.7 H (9.4-12.5) SECONDS INR 1.16 (0.8-3.0) Sodium 126 L (137-145) mmol/L Potassium 4.8 (3.5-5.1) mmol/L Chloride 89 L (98-107) mmol/L Carbon Dioxide 25 (22-30) mmol/L Anion Gap 16.1 H (5-15) MEQ/L BUN 23 H (9-20) mg/dL Creatinine 0.99 (0.66-1.25) mg/dL Estimated GFR > 60.0 ML/MIN Glucose 340 H (74-106) mg/dL POC Glucometer (74 to 106) mg/dL Hemoglobin A1c (4.5-6.0) % Lactic Acid (0.4-2.0) Calcium 10.4 H (8.4-10.2) mg/dL Total Bilirubin 0.50 (0.2-1.3) mg/dL AST 33 (17-59) U/L ALT 32 (0-50) U/L Alkaline Phosphatase 110 (38-126) U/L Troponin I (0.000-0.034) ng/mL Serum Total Protein 8.4 H (6.3-8.2) g/dL Albumin 4.3 (3.5-5.0) g/dL Amylase 65 (30-110) U/L Lipase 68 (23-300) U/L Urine Color (YELLOW) Urine Appearance (CLEAR) Urine pH (5-6) Ur Specific [place] (1.005-1.025) Urine Protein (Negative) Urine Ketones (NEGATIVE) Urine Blood (0-5) Ramirez/ul Urine Nitrite (NEGATIVE) Urine Bilirubin (NEGATIVE) Urine Urobilinogen (0-1) mg/dL Ur Leukocyte Esterase (NEGATIVE) Urine WBC (Auto) (0-5) /HPF Urine RBC (Auto) (0-2) /HPF U Hyaline Cast (Auto) (0-2) /LPF U Epithel Cells (Auto) (FEW) /HPF Urine Bacteria (Auto) (NEGATIVE) /HPF Urine Mucus (Auto) (NEGATIVE) /HPF Urine Culture Reflexed (NO) Urine Glucose (NEGATIVE) mg/dL Influenza Type A Ag (NEGATIVE) Influenza Type B Ag (NEGATIVE) RSV (PCR) (Negative) SARS-CoV-2 (PCR) (NEGATIVE) 08/16/21 08/16/21 08/16/21 Range/Units 15:30 15:32 17:36 WBC (4.0-10.5) K/mm3 RBC (4.1-5.6) M/mm3 Hgb (12.5-18.0) gm/dl Hct (42-50) % MCV (78-100) fl MCH (26-32) pg MCHC (32-36) g/dl RDW (11.5-14.0) % Plt Count (150-450) K/mm3 MPV (7.5-11.0) fl Gran % (36.0-66.0) % Eos # (Auto) (0-0.5) Absolute Lymphs (auto) (1.0-4.6) Absolute Monos (auto) (0.0-1.3) Lymphocytes % (24.0-44.0) % Monocytes % (0.0-12.0) % Eosinophils % (0.00-5.0) % Basophils % (0.0-0.4) % Absolute Granulocytes (1.4-6.9) Basophils # (0-0.4) PT (9.4-12.5) SECONDS INR (0.8-3.0) Sodium (137-145) mmol/L Potassium (3.5-5.1) mmol/L Chloride (98-107) mmol/L Carbon Dioxide (22-30) mmol/L Anion Gap (5-15) MEQ/L BUN (9-20) mg/dL Creatinine (0.66-1.25) mg/dL Estimated GFR ML/MIN Glucose (74-106) mg/dL POC Glucometer (74 to 106) mg/dL Hemoglobin A1c (4.5-6.0) % Lactic Acid 3.0 H 3.0 H (0.4-2.0) Calcium (8.4-10.2) mg/dL Total Bilirubin (0.2-1.3) mg/dL AST (17-59) U/L ALT (0-50) U/L Alkaline Phosphatase (38-126) U/L Troponin I < 0.012 (0.000-0.034) ng/mL Serum Total Protein (6.3-8.2) g/dL Albumin (3.5-5.0) g/dL Amylase (30-110) U/L Lipase (23-300) U/L Urine Color (YELLOW) Urine Appearance (CLEAR) Urine pH (5-6) Ur Specific [place] (1.005-1.025) Urine Protein (Negative) Urine Ketones (NEGATIVE) Urine Blood (0-5) Ramirez/ul Urine Nitrite (NEGATIVE) Urine Bilirubin (NEGATIVE) Urine Urobilinogen (0-1) mg/dL Ur Leukocyte Esterase (NEGATIVE) Urine WBC (Auto) (0-5) /HPF Urine RBC (Auto) (0-2) /HPF U Hyaline Cast (Auto) (0-2) /LPF U Epithel Cells (Auto) (FEW) /HPF Urine Bacteria (Auto) (NEGATIVE) /HPF Urine Mucus (Auto) (NEGATIVE) /HPF Urine Culture Reflexed (NO) Urine Glucose (NEGATIVE) mg/dL Influenza Type A Ag (NEGATIVE) Influenza Type B Ag (NEGATIVE) RSV (PCR) (Negative) SARS-CoV-2 (PCR) (NEGATIVE) 08/16/21 08/16/21 08/16/21 Range/Units 17:44 17:54 18:32 WBC (4.0-10.5) K/mm3 RBC (4.1-5.6) M/mm3 Hgb (12.5-18.0) gm/dl Hct (42-50) % MCV (78-100) fl MCH (26-32) pg MCHC (32-36) g/dl RDW (11.5-14.0) % Plt Count (150-450) K/mm3 MPV (7.5-11.0) fl Gran % (36.0-66.0) % Eos # (Auto) (0-0.5) Absolute Lymphs (auto) (1.0-4.6) Absolute Monos (auto) (0.0-1.3) Lymphocytes % (24.0-44.0) % Monocytes % (0.0-12.0) % Eosinophils % (0.00-5.0) % Basophils % (0.0-0.4) % Absolute Granulocytes (1.4-6.9) Basophils # (0-0.4) PT (9.4-12.5) SECONDS INR (0.8-3.0) Sodium (137-145) mmol/L Potassium (3.5-5.1) mmol/L Chloride (98-107) mmol/L Carbon Dioxide (22-30) mmol/L Anion Gap (5-15) MEQ/L BUN (9-20) mg/dL Creatinine (0.66-1.25) mg/dL Estimated GFR ML/MIN Glucose (74-106) mg/dL POC Glucometer (74 to 106) mg/dL Hemoglobin A1c (4.5-6.0) % Lactic Acid (0.4-2.0) Calcium (8.4-10.2) mg/dL Total Bilirubin (0.2-1.3) mg/dL AST (17-59) U/L ALT (0-50) U/L Alkaline Phosphatase (38-126) U/L Troponin I < 0.012 (0.000-0.034) ng/mL Serum Total Protein (6.3-8.2) g/dL Albumin (3.5-5.0) g/dL Amylase (30-110) U/L Lipase (23-300) U/L Urine Color YELLOW (YELLOW) Urine Appearance CLEAR (CLEAR) Urine pH 6.0 (5-6) Ur Specific [place] 1.010 (1.005-1.025) Urine Protein NEGATIVE (Negative) Urine Ketones SMALL (NEGATIVE) Urine Blood NEGATIVE (0-5) Ramirez/ul Urine Nitrite NEGATIVE (NEGATIVE) Urine Bilirubin NEGATIVE (NEGATIVE) Urine Urobilinogen NEGATIVE (0-1) mg/dL Ur Leukocyte Esterase NEGATIVE (NEGATIVE) Urine WBC (Auto) 0-2 (0-5) /HPF Urine RBC (Auto) 0-2 (0-2) /HPF U Hyaline Cast (Auto) 0-2 (0-2) /LPF U Epithel Cells (Auto) NONE (FEW) /HPF Urine Bacteria (Auto) NONE SEEN (NEGATIVE) /HPF Urine Mucus (Auto) SLIGHT (NEGATIVE) /HPF Urine Culture Reflexed NO (NO) Urine Glucose >=500 (NEGATIVE) mg/dL Influenza Type A Ag NEGATIVE (NEGATIVE) Influenza Type B Ag NEGATIVE (NEGATIVE) RSV (PCR) NEGATIVE (Negative) SARS-CoV-2 (PCR) NEGATIVE (NEGATIVE) 03/06/22 03/06/22 03/06/22 Range/Units 00:48 06:30 06:56 WBC 5.7 (4.0-10.5) K/mm3 RBC 4.40 (4.1-5.6) M/mm3 Hgb 12.5 (12.5-18.0) gm/dl Hct 37.7 L (42-50) % MCV 85.7 (78-100) fl MCH 28.4 (26-32) pg MCHC 33.2 (32-36) g/dl RDW 13.5 (11.5-14.0) % Plt Count 316 (150-450) K/mm3 MPV 10.8 (7.5-11.0) fl Gran % 37.5 (36.0-66.0) % Eos # (Auto) 0.10 (0-0.5) Absolute Lymphs (auto) 2.67 (1.0-4.6) Absolute Monos (auto) 0.75 (0.0-1.3) Lymphocytes % 47.2 H (24.0-44.0) % Monocytes % 13.3 H (0.0-12.0) % Eosinophils % 1.8 (0.00-5.0) % Basophils % 0.2 (0.0-0.4) % Absolute Granulocytes 2.13 (1.4-6.9) Basophils # 0.01 (0-0.4) PT (9.4-12.5) SECONDS INR (0.8-3.0) Sodium (137-145) mmol/L Potassium (3.5-5.1) mmol/L Chloride (98-107) mmol/L Carbon Dioxide (22-30) mmol/L Anion Gap (5-15) MEQ/L BUN (9-20) mg/dL Creatinine (0.66-1.25) mg/dL Estimated GFR ML/MIN Glucose (74-106) mg/dL POC Glucometer 116 H (74 to 106) mg/dL Hemoglobin A1c 9.77 H (4.5-6.0) % Lactic Acid (0.4-2.0) Calcium (8.4-10.2) mg/dL Total Bilirubin (0.2-1.3) mg/dL AST (17-59) U/L ALT (0-50) U/L Alkaline Phosphatase (38-126) U/L Troponin I (0.000-0.034) ng/mL Serum Total Protein (6.3-8.2) g/dL Albumin (3.5-5.0) g/dL Amylase (30-110) U/L Lipase (23-300) U/L Urine Color (YELLOW) Urine Appearance (CLEAR) Urine pH (5-6) Ur Specific [place] (1.005-1.025) Urine Protein (Negative) Urine Ketones (NEGATIVE) Urine Blood (0-5) Ramirez/ul Urine Nitrite (NEGATIVE) Urine Bilirubin (NEGATIVE) Urine Urobilinogen (0-1) mg/dL Ur Leukocyte Esterase (NEGATIVE) Urine WBC (Auto) (0-5) /HPF Urine RBC (Auto) (0-2) /HPF U Hyaline Cast (Auto) (0-2) /LPF U Epithel Cells (Auto) (FEW) /HPF Urine Bacteria (Auto) (NEGATIVE) /HPF Urine Mucus (Auto) (NEGATIVE) /HPF Urine Culture Reflexed (NO) Urine Glucose (NEGATIVE) mg/dL Influenza Type A Ag (NEGATIVE) Influenza Type B Ag (NEGATIVE) RSV (PCR) (Negative) SARS-CoV-2 (PCR) (NEGATIVE) 08/17/21 08/17/21 Range/Units 06:56 11:26 WBC (4.0-10.5) K/mm3 RBC (4.1-5.6) M/mm3 Hgb (12.5-18.0) gm/dl Hct (42-50) % MCV (78-100) fl MCH (26-32) pg MCHC (32-36) g/dl RDW (11.5-14.0) % Plt Count (150-450) K/mm3 MPV (7.5-11.0) fl Gran % (36.0-66.0) % Eos # (Auto) (0-0.5) Absolute Lymphs (auto) (1.0-4.6) Absolute Monos (auto) (0.0-1.3) Lymphocytes % (24.0-44.0) % Monocytes % (0.0-12.0) % Eosinophils % (0.00-5.0) % Basophils % (0.0-0.4) % Absolute Granulocytes (1.4-6.9) Basophils # (0-0.4) PT (9.4-12.5) SECONDS INR (0.8-3.0) Sodium 130 L (137-145) mmol/L Potassium 3.8 D (3.5-5.1) mmol/L Chloride 103 D (98-107) mmol/L Carbon Dioxide 20 L (22-30) mmol/L Anion Gap 10.9 (5-15) MEQ/L BUN 12 (9-20) mg/dL Creatinine 0.56 L (0.66-1.25) mg/dL Estimated GFR > 60.0 ML/MIN Glucose 88 (74-106) mg/dL POC Glucometer 286 H (74 to 106) mg/dL Hemoglobin A1c (4.5-6.0) % Lactic Acid (0.4-2.0) Calcium 8.1 L D (8.4-10.2) mg/dL Total Bilirubin 0.40 (0.2-1.3) mg/dL AST 32 (17-59) U/L ALT 25 (0-50) U/L Alkaline Phosphatase 80 (38-126) U/L Troponin I (0.000-0.034) ng/mL Serum Total Protein 6.6 (6.3-8.2) g/dL Albumin 3.2 L (3.5-5.0) g/dL Amylase (30-110) U/L Lipase (23-300) U/L Urine Color (YELLOW) Urine Appearance (CLEAR) Urine pH (5-6) Ur Specific [place] (1.005-1.025) Urine Protein (Negative) Urine Ketones (NEGATIVE) Urine Blood (0-5) Ramirez/ul Urine Nitrite (NEGATIVE) Urine Bilirubin (NEGATIVE) Urine Urobilinogen (0-1) mg/dL Ur Leukocyte Esterase (NEGATIVE) Urine WBC (Auto) (0-5) /HPF Urine RBC (Auto) (0-2) /HPF U Hyaline Cast (Auto) (0-2) /LPF U Epithel Cells (Auto) (FEW) /HPF Urine Bacteria (Auto) (NEGATIVE) /HPF Urine Mucus (Auto) (NEGATIVE) /HPF Urine Culture Reflexed (NO) Urine Glucose (NEGATIVE) mg/dL Influenza Type A Ag (NEGATIVE) Influenza Type B Ag (NEGATIVE) RSV (PCR) (Negative) SARS-CoV-2 (PCR) (NEGATIVE) Micro Results-Entire Visit: Accuchecks Date 08/17/21 Time 00:00 - Radiology Exams Ordered Rad Exams-Entire Visit: Radiology Procedures Category Date Time Status ABDOMEN AND PELVIS W/0 CONTRAS [CT] Stat Exams 08/16/21 15:24 Completed CHEST 1 VIEW (PORTABLE) Stat Exams 08/16/21 15:24 Completed - Discharge Disposition: Home, Self-Care Condition: Stable Prescriptions: New Prochlorperazine Maleate 5 mg* [Compazine 5 MG] 5 mg PO TID PRN #15 tablet PRN Reason: Nausea Continue Omeprazole 20 mg PO DAILY Lovastatin 40 mg PO HS Albuterol 8 gm Mdi Hfa [Ventolin Hfa MDI] 8 gm IH UD PRN PRN Reason: copd Albuterol 2.5 mg/3 ml Neb [Proventil 2.5 mg/3 ml Neb] 2.5 mg IH UD PRN PRN Reason: copd Ibuprofen [Advil] 200 mg PO UD PRN PRN Reason: Pain Budesonide 0.5 mg/2 ml [Pulmicort 0.5 mg/2 ml Respules] 0.5 mg IH DAILY Arformoterol Tartrate [Brovana] 15 mcg IH BID Insulin Regular, Human [Humulin R U-500 Kwikpen] 500 unit SQ TIDAC 30 Days Irbesartan 75 mg PO DAILY Glipizide [Glipizide ER] 5 mg PO DAILY Gabapentin 300 mg [Neurontin 300 mg] 300 mg PO HS Acetaminophen 325 mg [Tylenol 325 mg] 650 mg PO Q4H PRN PRN tablet PRN Reason: Pain And/Or Fever Hydrocortisone 50 mg PO DAILY #150 tablet Magnesium Oxide 400 mg [Mag-Ox 400] 400 mg PO DAILY #30 tablet ondansetron HCL [Zofran] 4 mg PO Q6H PRN #30 tablet PRN Reason: Nausea Follow up with: FOREIGN WILLIAMSON DO [Primary Care Provider] -
[2021-08-17] MEDS: HUMULIN R SQ PRN (11:47)
[2021-08-17 11:53] VITALS: BP 143/91; PULSE 69; O2SAT 99
[2021-08-17] MEDS ORDERED: Reglan 10 MG/2 ML IV SCH (12:00)
== END 2021-08-17 13:09 | disposition home or self-care (01) ==
LOC: ED 14:51 → MED SURG 18:45
PROVIDERS: ADMIT Family Medicine; ATTEND Family Medicine
DX: R11.2 Nausea with vomiting, unspecified (principal); E86.0 Dehydration; E87.1 Hypo-osmolality and hyponatremia; C79.70 Secondary malignant neoplasm of unspecified adrenal gland; C43.9 Malignant melanoma of skin, unspecified; K59.00 Constipation, unspecified; E78.00 Pure hypercholesterolemia, unspecified; I10 Essential (primary) hypertension; E11.9 Type 2 diabetes mellitus without complications; Z79.899 Other long term (current) drug therapy; Z20.828 Contact with and (suspected) exposure to other viral communicable diseases
CPT/HCPCS: 0241U; 36000; 36415; 71045; 74176; 80053; 81001; 82150; 82947; 83036; 83605; 83690; 84484; 85025; 85610; 87040; 93005; 96360; 96361; 96374; 96375; 99285; G0378; J1815; J2405; A9270-GY

== ENCOUNTER 2022-04-02 11:13 | Emergency (ER) | payer MEDICARE ==
--- NOTE | 2022-04-02 11:18 | ERPHSYRPT ---
- History of Present Illness Time Seen by Provider: 04/02/22 11:18 Source: patient, family Exam Limitations: no limitations Physician History: This is a 67-year-old white male patient of Dr. Pritchard who has been experiencing significant fatigue over the last 7 to 8 days. The last time he felt like this, the patient's cortisol levels were off per his report. Patient denies chest pain. He denies shortness of breath. Primarily, he feels weak and fatigued. He has not experienced any bleeding issues. He does have a history of metastatic malignant melanoma. He has not been having vomiting or diarrhea. Patient does see a pain specialist, Dr. Resendiz. Patient also states that he is having trouble thinking and having some mental status changes. Patient has n ot had a recent CAT scan or MRI of the head. He has had negative findings on CAT scan of the chest and abdomen as far as any recurrence monitoring. Patient has a history of hyperlipidemia, gastroesophageal reflux disease, diabetes, hypertension and COPD. Timing/Duration: day(s) (Approximately 7 to 8 days) Severity: mild (To moderate) Associated Symptoms: weakness, No nausea, No vomiting, No abdominal pain, No shortness of breath, No chest pain, No rash Allergies/Adverse Reactions: meperidine [From Demerol] Adverse Reaction (Intermediate, Verified 04/02/22 11:21) Nausea Home Medications: Omeprazole 20 mg PO DAILY 02/01/17 [History] Albuterol 2.5 mg/3 ml Neb [Proventil 2.5 mg/3 ml Neb] 2.5 mg IH UD PRN 02/08/20 [History] Albuterol 8 gm Mdi Hfa [Ventolin Hfa MDI] 8 gm IH UD PRN 02/08/20 [History] Arformoterol Tartrate [Brovana] 15 mcg IH BID 02/08/20 [History] Budesonide 0.5 mg/2 ml [Pulmicort 0.5 mg/2 ml Respules] 0.5 mg IH DAILY 02/08/20 [History] Ibuprofen [Advil] 200 mg PO UD PRN 02/08/20 [History] Gabapentin [Neurontin ] 300 mg PO HS 05/24/21 [History] Atorvastatin Calcium 10 mg PO HS 04/02/22 [History] Gabapentin 100 mg PO DAILY 04/02/22 [History] Hydrocodone/Acetaminophen [Hydrocodone-Acetamin 10-325 mg] 1 each PO HS 04/02/22 [History] Hydrocortisone 10 mg PO BID 04/02/22 [History] Insulin Glargine,Hum.rec.anlog [Basaglar Kwikpen U-100] 30 unit SQ HS 04/02/22 [History] Insulin Lispro [Humalog] 100 unit SQ BID 04/02/22 [History] Hx Tetanus, Diphtheria Vaccination/Date Given: Yes Hx Influenza Vaccination/Date Given: Yes Hx Pneumococcal Vaccination/Date Given: Yes Travel Risk - International Travel Have you traveled outside of the country in past 3 weeks: No - Coronavirus Screening Are you exhibiting any of the following symptoms?: No Close contact with a COVID-19 positive Pt in past 14-21 Days: No - Vaccine Status Have you recieved a Covid-19 vaccination: Yes [employer] P[employer]: [employer] - Vaccination Dates Date of 2cond Vaccination (if applicable): 2020 - Review of Systems Constitutional: Weakness Eyes: No Symptoms Ears, Nose, & Throat: No Symptoms Respiratory: No Symptoms Cardiac: No Symptoms Abdominal/Gastrointestinal: No Symptoms Genitourinary Symptoms: No Symptoms Musculoskeletal: No Symptoms Skin: No Symptoms Neurological: No Symptoms Psychological: No Symptoms Endocrine: No Symptoms Hematologic/Lymphatic: No Symptoms Immunological/Allergic: No Symptoms All Other Systems: Reviewed and Negative - Past Medical History Pertinent Past Medical History: Yes Neurological History: No Pertinent History, Seizures ENT History: No Pertinent History Cardiac History: High Cholesterol, Hypertension, Other Respiratory History: COPD Endocrine Medical History: Diabetes Type II Musculoskeletal History: Arthritis GI Medical History: GERD History: Other Psycho-Social History: No Pertinent History Male Reproductive Disorders: No Pertinent History Other Medical History: HE HAD SEIZURE HX D/T TO MEDICATIONS AND HE SEES DR. DOVER AND HAS BEEN OFF THIS MED NOW. - Past Surgical History Past Surgical History: Yes Neuro Surgical History: No Pertinent History Cardiac: No Pertinent History Respiratory: No Pertinent History Gastrointestinal: No Pertinent History Genitourinary: Other Musculoskeletal: Orthopedic Surgery Male Surgical History: No Pertinent History Other Surgical History: kidney stone removal, wisdom teeth removed, MULTIPLE melanoma removed, LEFT ROTATOR CUFF REPAIR AND BICEP TENDON REPAIR. SURGICAL FLUSH OF POST OP INFECTION OF LEFT SHOULDER,left shoulder repair and antibiotic beads palced 05/29/2020 - Social History Smoking Status: Never smoker Exposure to second hand smoke: Yes Drug Use: none Patient Lives Alone: No - Nursing Vital Signs Nursing Vital Signs: Initial Vital Signs Temperature 97.9 F 04/02/22 11:14 Pulse Rate 60 04/02/22 11:14 Respiratory Rate 16 04/02/22 11:14 Blood Pressure 150/87 04/02/22 11:14 O2 Sat by Pulse Oximetry 100 04/02/22 11:14 Pain Scale Pain Intensity 2 - Physical Exam General Appearance: no apparent distress, alert, anxiety Eye Exam: PERRL/EOMI, eyes nml inspection Ears, Nose, Throat Exam: normal ENT inspection, moist mucous membranes Neck Exam: normal inspection, non-tender, supple, full range of motion Respiratory Exam: normal breath sounds, lungs clear, airway intact, No chest tenderness, No respiratory distress Cardiovascular Exam: regular rate/rhythm, normal heart sounds, normal peripheral pulses Gastrointestinal/Abdomen Exam: soft, normal bowel sounds, No tenderness Rectal Exam: not done Back Exam: normal inspection, normal range of motion, No CVA tenderness Extremity Exam: normal inspection, normal range of motion, pelvis stable Neurologic Exam: alert, oriented x 3, cooperative, 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, normal mood/affect, nml cerebellar function, nml station & gait, sensation nml Skin Exam: normal color, warm, dry Lymphatic Exam: No adenopathy SpO2 Interpretation: normal O2 Delivery: Room Air - Course Nursing assessment & vital signs reviewed: Yes EKG Interpreted by Me: RATE (58), Sinus Rhythm, Left [place] Deviation, NORMAL INTERVALS, NORMAL QRS, NORMAL ST-T, Other (No acute ischemic changes on today's EKG.) Ordered Tests: Active Orders 24 hr Category Date Time Status EKG-ER Only STAT Care 04/02/22 12:02 Active IV Insertion STAT Care 04/02/22 12:02 Active Pulse Oximetry (ED) STAT Care 04/02/22 12:02 Active HEAD WITHOUT CONTRAST [CT] Stat Exams 04/02/22 12:05 Completed CBC W DIFF Stat Lab 04/02/22 12:40 Completed CMP Stat Lab 04/02/22 12:40 Completed NT PRO BNP Stat Lab 04/02/22 12:40 Completed T4 (Thyroxine) Stat Lab 04/02/22 12:40 Received TROPONIN Q4H Lab 04/02/22 12:40 Completed TROPONIN Q4H Lab 04/02/22 16:15 Ordered TROPONIN Q4H Lab 04/02/22 20:15 Ordered TSH [TSH, 3RD Generation] Stat Lab 04/02/22 12:40 Received Medication Summary Discontinued Medications Generic Name Dose Route Start Last Admin Trade Name Jose PRN Reason Stop Dose Admin Sodium Chloride 1,000 mls @ 999 mls/hr 04/02/22 12:02 04/02/22 12:15 Sodium Chloride 0.9% 1000 Ml IV 04/02/22 13:02 999 mls/hr .Q1H1M STA Administration Sodium Chloride Confirm 04/02/22 12:14 Sodium Chloride 0.9% 1000 Ml Administered 04/02/22 12:15 Dose 1,000 mls @ ud .ROUTE .STK-MED ONE Lab/Rad Data: Laboratory Result Diagrams 04/02/22 12:40 04/02/22 12:40 Laboratory Results 04/02/22 04/02/22 04/02/22 Range/Units 12:40 12:40 12:40 WBC 7.3 (4.0-10.5) x10^3/uL RBC 4.81 (4.1-5.6) x10^6/uL Hgb 13.3 (12.5-18.0) g/dL Hct 41.3 L (42-50) % MCV 85.9 (78-100) fL MCH 27.7 (26-32) pg MCHC 32.2 (32-36) g/dL RDW 15.1 H (11.5-14.0) % Plt Count 351 (150-450) x10^3/uL MPV 9.7 (7.5-11.0) fL Gran % 73.0 H (36.0-66.0) % Immature Gran % (Auto) 0.4 (0.00-0.4) % Nucleat RBC Rel Count 0.0 (0.00-0.1) % Eos # (Auto) 0.04 (0-0.5) x10^3/uL Immature Gran # (Auto) 0.03 (0.00-0.03) x10^3u/L Absolute Lymphs (auto) 1.15 (1.0-4.6) x10^3/uL Absolute Monos (auto) 0.74 (0.0-1.3) x10^3/uL Absolute Nucleated RBC 0.00 (0.00-0.01) x10^3u/L Lymphocytes % 15.7 L (24.0-44.0) % Monocytes % 10.1 (0.0-12.0) % Eosinophils % 0.5 (0.00-5.0) % Basophils % 0.3 (0.0-0.4) % Absolute Granulocytes 5.33 (1.4-6.9) x10^3/uL Basophils # 0.02 (0-0.4) x10^3/uL Sodium 129 L (137-145) mmol/L Potassium 5.6 H (3.5-5.1) mmol/L Chloride 92 L (98-107) mmol/L Carbon Dioxide 26 (22-30) mmol/L Anion Gap 15.9 H (5-15) MEQ/L BUN 18 (9-20) mg/dL Creatinine 0.87 (0.66-1.25) mg/dL Estimated GFR > 60.0 ML/MIN Glucose 307 H (74-106) mg/dL Calcium 9.5 (8.4-10.2) mg/dL Total Bilirubin 0.50 (0.2-1.3) mg/dL AST 30 (17-59) U/L ALT 24 (0-50) U/L Alkaline Phosphatase 79 (38-126) U/L Troponin I < 0.012 (0.000-0.034) ng/mL NT-Pro-B Natriuret Pep 26.2 (0-900) pg/mL Serum Total Protein 7.9 (6.3-8.2) g/dL Albumin 4.3 (3.5-5.0) g/dL - Progress Progress: improved, re-examined Progress Note: 04/02/22 13:04 CAT scan of the head without contrast is a normal study. Counseled pt/family regarding: lab results, diagnosis, need for follow-up, rad results - Departure Departure Disposition: Home Clinical Impression: Fatigue, Weakness Condition: Stable Critical Care Time: No Referrals: FOREIGN PRITCHARD, [Primary Care Provider] - Follow up/PCP as directed Additional Instructions: Follow-up with Dr. Pritchard for your cortisol test results. Obtain your evening cortisol level at 3 PM and your morning cortisol level at 8 AM
[2022-04-02] MEDS ORDERED: Sodium Chloride 0.9% 1000 ML 1,000 ML IV STA (12:02)
[2022-04-02] MEDS ORDERED: Sodium Chloride 0.9% 1000 ML 1,000 ML ONE (12:14)
[2022-04-02 12:48] LABS: Absolute Neutrophil Ct (ANC) 5.33 x10^3/uL (1.4-6.9); Basophil (Absolute #) 0.02 x10^3/uL (0-0.4); Eosinophil % 0.5 % (0.00-5.0); Eosinophil (Absolute #) 0.04 x10^3/uL (0-0.5); Hematocrit 41.3 % (42-50); Hemoglobin 13.3 g/dL (12.5-18.0); Lymphocyte (Absolute #) 1.15 x10^3/uL (1.0-4.6); Lymphocytes % 15.7 % (24.0-44.0); Mean Cell Volume 85.9 fL (78-100); Mean Corpuscular Hemoglobin 27.7 pg (26-32); Mean Corpuscular Hgb Concent. 32.2 g/dL (32-36); Mean Platelet Volume 9.7 fL (7.5-11.0); Monocyte (Absolute #) 0.74 x10^3/uL (0.0-1.3); Monocytes % 10.1 % (0.0-12.0); Platelet Count 351 x10^3/uL (150-450); Red Blood Count 4.81 x10^6/uL (4.1-5.6); Red Cell Distribution Width 15.1 % (11.5-14.0); White Blood Count 7.3 x10^3/uL (4.0-10.5)
--- NOTE | 2022-04-02 12:50 | XRAY ---
Indication: Fatigue. Mental status change one week. No known injury. Multiple contiguous axial images obtained through the head without contrast. Comparison: July 05, 2021 Again normal appearing brain parenchyma, ventricles, and bony calvarium for patient's age. Visualized paranasal sinuses and mastoid air cells are clear. Impression: Continued normal CT head without contrast exam.
[2022-04-02 13:12] LABS: ALBUMIN 4.3 g/dL (3.5-5.0); ALKALINE PHOSPHATASE 79 U/L (38-126); ANION GAP 15.9 MEQ/L (5-15); BLOOD UREA NITROGEN 18 mg/dL (9-20); CHLORIDE 92 mmol/L (98-107); Calcium 9.5 mg/dL (8.4-10.2); Carbon Dioxide 26 mmol/L (22-30); Creatinine 1 0.87 mg/dL (0.66-1.25); EST GLOMERULAR FILTRATION RATE > 60.0 ML/MIN; Glucose 307 mg/dL (74-106); NT PRO BNP 26.2 pg/mL (0-900); Potassium 5.6 mmol/L (3.5-5.1); SGOT/AST 30 U/L (17-59); SGPT/ALT 24 U/L (0-50); SODIUM 129 mmol/L (137-145); Total Protein 7.9 g/dL (6.3-8.2)
[2022-04-02 13:32] LABS: INFLUENZA A NEGATIVE (NEGATIVE); INFLUENZA B NEGATIVE (NEGATIVE); RESPIRATORY SYNCTIAL VIRUS NEGATIVE (Negative); SARS-CoV-2 Xpert Express NEGATIVE (NEGATIVE)
[2022-04-02 14:39] VITALS: BP 118/78; PULSE 66; O2SAT 98
== END 2022-04-02 14:39 | disposition home or self-care (01) ==
LOC: ED 11:13
DX: R53.83 Other fatigue (principal); R53.1 Weakness; E78.5 Hyperlipidemia, unspecified; E11.9 Type 2 diabetes mellitus without complications; I10 Essential (primary) hypertension; J44.9 Chronic obstructive pulmonary disease, unspecified; Z79.4 Long term (current) use of insulin; Z79.891 Long term (current) use of opiate analgesic; Z79.52 Long term (current) use of systemic steroids; Z20.828 Contact with and (suspected) exposure to other viral communicable diseases
CPT/HCPCS: 0241U; 36000; 36415; 70450; 80053; 82533; 83880; 84436; 84443; 84484; 85025; 93005; 94760; 99284; J1642

== ENCOUNTER 2023-01-20 08:05 | Day surgery (SDC) | payer MEDICARE ==
[2023-01-20] MEDS ORDERED: LIDOCAINE HCL 2% 100 MG/5 ML IJ ONE (08:06)
[2023-01-20] MEDS ORDERED: DIPRIVAN 200 MG/20 ML IV ONE (09:42)
--- NOTE | 2023-01-20 11:41 | XRAY ---
Indication: Left C2-C5 MBB. Intraoperative fluoroscopy provided for 23 seconds. 3 digital spot images submitted for interpretation demonstrates posterior needle tips projecting over the expected left C2-C5 nerve roots. Correlate with intraoperative findings/report.
[2023-01-20] MEDS ORDERED: Lactated Ringers 1,000 ML IV ONE (13:08)
--- NOTE | 2023-01-20 13:30 | XRAY ---
23 seconds of fluoroscopy was used in surgery for a left C2-C5 MBB.
== END 2023-01-20 10:10 | disposition home or self-care (01) ==
LOC: SDC-PAIN 08:05
PROVIDERS: ATTEND Psychiatry & Neurology Pain Medicine
DX: M47.812 Spondylosis without myelopathy or radiculopathy, cervical region (principal); E11.9 Type 2 diabetes mellitus without complications; Z79.899 Other long term (current) drug therapy
CPT/HCPCS: 64490; 64491; 64492; 72040; 77002; 82947; J1642; J2704

== ENCOUNTER 2023-03-31 09:24 | Day surgery (SDC) | payer MEDICARE ==
[2023-03-31] MEDS ORDERED: Decadron 4 MG INJ IV ONE (09:25)
[2023-03-31] MEDS ORDERED: BUPIVACAINE 0.5% VIAL IJ ONE (09:25)
[2023-03-31] MEDS ORDERED: DIPRIVAN 200 MG/20 ML IV ONE (11:53)
--- NOTE | 2023-03-31 13:55 | XRAY ---
Indication: Left C2-C5 MBB. Intraoperative fluoroscopy provided for 22 seconds. 2 digital spot images submitted for interpretation demonstrates posterior needle tips projecting over the expected left C2-C5 nerve roots. Correlate with intraoperative findings/report.
--- NOTE | 2023-03-31 14:24 | XRAY ---
22 seconds of fluoroscopy was used in surgery for a left C2-C5 MBB.
[2023-03-31] MEDS ORDERED: Lactated Ringers 1,000 ML IV ONE (15:02)
== END 2023-03-31 12:20 | disposition home or self-care (01) ==
LOC: SDC-PAIN 09:24
PROVIDERS: ATTEND Psychiatry & Neurology Pain Medicine
DX: M47.812 Spondylosis without myelopathy or radiculopathy, cervical region (principal); E11.9 Type 2 diabetes mellitus without complications; Z79.899 Other long term (current) drug therapy
CPT/HCPCS: 64490; 64491; 64492; 72040; 77002; 82947; J1100; J1642; J2704

== ENCOUNTER 2023-04-28 08:35 | Day surgery (SDC) | payer MEDICARE ==
[2023-04-28] MEDS ORDERED: XYLOCAINE-MPF 1% 5ML SDV IJ ONE (08:36)
[2023-04-28] MEDS ORDERED: BUPIVACAINE 0.5% VIAL IJ ONE (08:36)
[2023-04-28] MEDS ORDERED: Decadron 4 MG INJ IV ONE (08:36)
[2023-04-28] MEDS ORDERED: Versed 2 MG/2 ML Injection ONE (09:56)
[2023-04-28] MEDS ORDERED: DIPRIVAN 200 MG/20 ML IV ONE (09:56)
[2023-04-28] MEDS ORDERED: Lactated Ringers 1,000 ML IV ONE (10:57)
--- NOTE | 2023-04-28 13:02 | XRAY ---
Indication: Left C2-C5 RFA. Intraoperative fluoroscopy provided for 34 seconds. 2 digital spot image submitted for interpretation demonstrates posterior needle tips projecting over the expected left C2-C5 nerve roots. Correlate with intraoperative findings/report.
--- NOTE | 2023-04-28 13:04 | XRAY ---
34 seconds of fluoroscopy was used in surgery for a left C2-C5 RFA.
== END 2023-04-28 10:27 | disposition home or self-care (01) ==
LOC: SDC-PAIN 08:35
PROVIDERS: ATTEND Psychiatry & Neurology Pain Medicine
DX: M47.812 Spondylosis without myelopathy or radiculopathy, cervical region (principal); E11.9 Type 2 diabetes mellitus without complications; Z79.899 Other long term (current) drug therapy
CPT/HCPCS: 64633; 64634; 72040; 77002; 82947; J1100; J1642; J2250; J2704

== ENCOUNTER 2023-07-13 10:54 | Emergency (ER) | payer MEDICARE ==
--- NOTE | 2023-07-13 11:59 | ERPHSYRPT ---
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 Patient has a history of adrenal insufficiency. Patient has had adrenal crisis in the past. Patient is experiencing bodyaches fatigue and headache. Patient is worried that he may be experiencing another adrenal crisis. Patient requesting to have a sodium checked. He has no other complaints. Portions of this note were created with voice recognition technology. There may be grammatical, spelling, punctuation or sound alike errors Timing/Duration: today Severity: moderate Modifying Factors: Improves With: nothing Associated Symptoms: denies symptoms Allergies/Adverse Reactions: JENNIFER Inhibitors Allergy (Verified 07/13/23 11:53) meperidine [From Demerol] Adverse Reaction (Intermediate, Verified 07/13/23 11:53) Nausea Home Medications: Omeprazole 20 mg PO DAILY 02/01/17 [History] Albuterol 2.5 mg/3 ml Neb [Proventil 2.5 mg/3 ml Neb] 2.5 mg IH UD PRN 02/08/20 [History] Albuterol 8 gm Mdi Hfa [Ventolin Hfa MDI] 8 gm IH UD PRN 02/08/20 [Hist ory] Budesonide 0.5 mg/2 ml [Pulmicort 0.5 mg/2 ml Respules] 0.5 mg IH DAILY 02/08/20 [History] Atorvastatin Calcium 10 mg PO HS 04/02/22 [History] Hydrocodone/Acetaminophen [Hydrocodone-Acetamin 10-325 mg] 1 each PO HS 04/02/22 [History] Hydrocortisone 45 mg PO UD 04/02/22 [History] Insulin Glargine,Hum.rec.anlog [Basaglar Kwikpen U-100] 18 unit SQ HS 04/02/22 [History] Insulin Lispro [Humalog] 1 unit SQ BID 04/02/22 [History] Ergocalciferol (Vitamin D2) [Vitamin D2] 1 cap PO WEEKLY 07/13/23 [History] Hx Tetanus, Diphtheria Vaccination/Date Given: Yes Hx Influenza Vaccination/Date Given: Yes Hx Pneumococcal Vaccination/Date Given: Yes Travel Risk - International Travel Have you traveled outside of the country in past 3 weeks: No - Coronavirus Screening Are you exhibiting any of the following symptoms?: No Symptoms: Headaches/Body Aches/Fatigue - Vaccine Status Have you recieved a Covid-19 vaccination: Yes 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: [employer] - Vaccination Dates Date of 2cond Vaccination (if applicable): 2020 - Review of Systems Constitutional: No Symptoms, No Fever, No Chills Eyes: No Symptoms Ears, Nose, & Throat: No Symptoms Respiratory: No Symptoms, No Cough, No Dyspnea Cardiac: No Symptoms, No Chest Pain, No Edema, No Syncope Abdominal/Gastrointestinal: No Symptoms, No Abdominal Pain, No Nausea, No Vomiting, No Diarrhea Genitourinary Symptoms: No Symptoms, No Dysuria Musculoskeletal: No Symptoms, No Back Pain, No Neck Pain Skin: No Symptoms, No Rash Neurological: No Symptoms, No Dizziness, No Focal Weakness, No Sensory Changes Psychological: No Symptoms Endocrine: No Symptoms Hematologic/Lymphatic: No Symptoms Immunological/Allergic: No Symptoms All Other Systems: Reviewed and Negative - Past Medical History Pertinent Past Medical History: Yes Neurological History: No Pertinent History, Seizures ENT History: No Pertinent History Cardiac History: High Cholesterol, Hypertension, Other Respiratory History: COPD Endocrine Medical History: Diabetes Type II Musculoskeletal History: Arthritis GI Medical History: GERD History: Other Psycho-Social History: No Pertinent History Male Reproductive Disorders: No Pertinent History Other Medical History: HE HAD SEIZURE HX D/T TO MEDICATIONS AND HE SEES DR. DOVER AND HAS BEEN OFF THIS MED NOW. - Past Surgical History Past Surgical History: Yes Neuro Surgical History: No Pertinent History Cardiac: No Pertinent History Respiratory: No Pertinent History Gastrointestinal: No Pertinent History Genitourinary: Other Musculoskeletal: Orthopedic Surgery Male Surgical History: No Pertinent History Other Surgical History: kidney stone removal, wisdom teeth removed, MULTIPLE melanoma removed, LEFT ROTATOR CUFF REPAIR AND BICEP TENDON REPAIR. SURGICAL FLUSH OF POST OP INFECTION OF LEFT SHOULDER,left shoulder repair and antibiotic beads palced 05/29/2020 - Social History Smoking Status: Never smoker Exposure to second hand smoke: No (early years) Drug Use: none Patient Lives Alone: No - Nursing Vital Signs Nursing Vital Signs: Initial Vital Signs Pulse Rate 71 07/13/23 11:42 Respiratory Rate 21 07/13/23 11:42 Blood Pressure 159/96 07/13/23 11:42 O2 Sat by Pulse Oximetry 98 07/13/23 11:42 Pain Scale Pain Intensity 0 - Physical Exam General Appearance: no apparent distress, alert Eye Exam: PERRL/EOMI, eyes nml inspection Ears, Nose, Throat Exam: normal ENT inspection, TMs normal, pharynx normal, moist mucous membranes Neck Exam: normal inspection, non-tender, supple, full range of motion Respiratory Exam: normal breath sounds, lungs clear, airway intact, No respiratory distress Cardiovascular Exam: regular rate/rhythm, normal heart sounds, normal peripheral pulses Gastrointestinal/Abdomen Exam: soft, normal bowel sounds, No tenderness, No mass Back Exam: normal inspection, normal range of motion, No CVA tenderness, No vertebral tenderness Extremity Exam: normal inspection, normal range of motion, pelvis stable Neurologic Exam: alert, oriented x 3, cooperative, normal mood/affect, nml cerebellar function, nml station & gait, sensation nml, No motor deficits Skin Exam: normal color, warm, dry, No rash Lymphatic Exam: No adenopathy SpO2 Interpretation: normal SpO2: 98 O2 Delivery: Room Air - Course Nursing assessment & vital signs reviewed: Yes Ordered Tests: Active Orders 24 hr Category Date Time Status CBC W DIFF Stat Lab 07/13/23 11:55 Completed CMP Stat Lab 07/13/23 11:55 Completed Medication Summary Generic Name Dose Route Start Last Admin Trade Name Freq PRN Reason Stop Dose Admin Heparin Sodium (Beef Lung) 500 units 07/13/23 16:03 07/13/23 16:05 Heparin Lock Flush Pf 500 Units/5 Ml Syringe PORT FLUSH 08/12/23 16:02 500 units PRN PRN Administration IV PORT FLUSH Discontinued Medications Generic Name Dose Route Start Last Admin Trade Name Freq PRN Reason Stop Dose Admin Heparin Sodium (Beef Lung) Confirm 07/13/23 16:02 Heparin Lock Flush Pf 500 Units/5 Ml Syringe Administered 07/13/23 16:03 Dose 500 units .ROUTE .[employer] ONE Sodium Chloride 1,000 mls @ 999 mls/hr 07/13/23 13:44 07/13/23 14:48 Sodium Chloride 0.9% 1000 Ml IV 07/13/23 14:44 Infused .Q1H1M STA Infusion Sodium Chloride Confirm 07/13/23 13:46 Sodium Chloride 0.9% 1000 Ml Administered 07/13/23 13:47 Dose 1,000 mls @ ud .ROUTE .[employer] ONE Lab/Rad Data: Laboratory Result Diagrams 07/13/23 11:55 07/13/23 11:55 Laboratory Results 07/13/23 07/13/23 07/13/23 Range/Units 13:48 11:55 11:55 WBC 8.0 (4.0-10.5) x10^3/uL RBC 5.37 (4.1-5.6) x10^6/uL Hgb 14.1 (12.5-18.0) g/dL Hct 44.5 (42-50) % MCV 82.9 (78-100) fL MCH 26.3 (26-32) pg MCHC 31.7 L (32-36) g/dL RDW 15.0 H (11.5-14.0) % Plt Count 331 (150-450) x10^3/uL MPV 10.0 (7.5-11.0) fL Gran % 73.8 H (36.0-66.0) % Immature Gran % (Auto) 0.3 (0.00-0.4) % Nucleat RBC Rel Count 0.0 (0.00-0.1) % Eos # (Auto) 0.01 (0-0.5) x10^3/uL Immature Gran # (Auto) 0.02 (0.00-0.03) x10^3u/L Absolute Lymphs (auto) 1.51 (1.0-4.6) x10^3/uL Absolute Monos (auto) 0.54 (0.0-1.3) x10^3/uL Absolute Nucleated RBC 0.00 (0.00-0.01) x10^3u/L Lymphocytes % 18.9 L (24.0-44.0) % Monocytes % 6.8 (0.0-12.0) % Eosinophils % 0.1 (0.00-5.0) % Basophils % 0.1 (0.0-0.4) % Absolute Granulocytes 5.91 (1.4-6.9) x10^3/uL Basophils # 0.01 (0-0.4) x10^3/uL Sodium 132 L (137-145) mmol/L Potassium 4.4 (3.5-5.1) mmol/L Chloride 99 (98-107) mmol/L Carbon Dioxide 25 (22-30) mmol/L Anion Gap 13.0 (5-15) MEQ/L BUN 14 (9-20) mg/dL Creatinine 0.54 L (0.66-1.25) mg/dL Estimated GFR 107.9 ML/MIN Glucose 214 H (74-106) mg/dL Calcium 10.0 (8.4-10.2) mg/dL Total Bilirubin 0.60 (0.2-1.3) mg/dL AST 29 (17-59) U/L ALT 26 (0-50) U/L Alkaline Phosphatase 62 (38-126) U/L Serum Total Protein 7.3 (6.3-8.2) g/dL Albumin 4.4 (3.5-5.0) g/dL Influenza Type A Ag NEGATIVE (NEGATIVE) Influenza Type B Ag NEGATIVE (NEGATIVE) RSV (PCR) NEGATIVE (NEGATIVE) SARS-CoV-2 (PCR) NEGATIVE (NEGATIVE) - Progress Progress: improved Progress Note: 68-year-old male presents to our ED with a history of adrenal suppression. Patient was initially seen at [facility]. Patient complained of some fatigue and some fogginess. They were concerned for possible hyponatremia secondary to adrenal insufficiency. Patient was sent here for laboratory workup. Patient's sodium level 132. Patient states this has been his baseline for over a week. Patient also complains of myalgias. We ran a COVID RSV influenza test which was negative. Patient reassessed. He received a liter of normal saline. Patient states he feels much better and is now requesting discharge. No indication for further workup at this time. Patient agrees to follow-up with his primary care doctor within 48 hours. Family at bedside. They voiced no other complaints or concerns at this time. Portions of this note were created with voice recognition technology. There may be grammatical, spelling, punctuation or sound alike errors 07/13/23 16:16 Complexity problem addressed is moderate acute complicated No critical care time Complex of data reviewed and analyzed is moderate. Test ordered test reviewed. Results analyzed and correlated clinically with history and physical examination. Risk of complication and or risk morbidity/mortality of patient management is low. Vital stable. Time spent to discharge patient is approximately 10 minutes. Plan of care established for shared decision making. No social determinants of health present impede follow-up. Family at bedside. They voiced no other complaints or concerns at this time. Portions of this note were created with voice recognition technology. There may be grammatical, spelling, punctuation or sound alike errors Counseled pt/family regarding: lab results, diagnosis - Departure Departure Disposition: Home Clinical Impression: Fatigue, Visit for well man health check, Hyponatremia Condition: Stable Critical Care Time: No Referrals: KENNY HENSON DO [Primary Care Provider] - Follow up/PCP as directed Additional Instructions: Discharge/Care Plan WILTONBRITNEY QUIGLEY was seen on 07/13/23 in the Emergency Room. The patient was counseled regarding Diagnosis,Lab results, Imaging studies, need for follow up and when to return to the Emergency Room. Prescriptions given: Discharge Note I have spoken with the patient and/or caregivers. I have explained the patient's condition, diagnosis and treatment plan based on the information available to me at this time. I have answered the patient's and/or caregiver's questions and addressed any concerns. The patient and/or caregivers have as good understanding of the patient's diagnosis, condition and treatment plan as can be expected at this point. The vital signs have been stable. The patient's condition is stable and appropriate for discharge from the emergency department. The patient will pursue further outpatient evaluation with the primary care physician or other designated or consulting physician as outlined in the discharge instructions. The patient and/or caregivers are agreeable to this plan of care and follow-up instructions have been explained in detail. The patient and/or caregivers have received these instruction. The patient/and or caregivers are aware that any significant change in condition or worsening of symptoms should prompt an immediate return to this or the closest emergency department or call 911.
[2023-07-13 12:09] LABS: Absolute Neutrophil Ct (ANC) 5.91 x10^3/uL (1.4-6.9); BASOPHIL % 0.1 % (0.0-0.4); Basophil (Absolute #) 0.01 x10^3/uL (0-0.4); Eosinophil % 0.1 % (0.00-5.0); Eosinophil (Absolute #) 0.01 x10^3/uL (0-0.5); Hematocrit 44.5 % (42-50); Hemoglobin 14.1 g/dL (12.5-18.0); IMMATURE GRAN # 0.02 x10^3u/L (0.00-0.03); IMMATURE GRAN % 0.3 % (0.00-0.4); Lymphocyte (Absolute #) 1.51 x10^3/uL (1.0-4.6); Lymphocytes % 18.9 % (24.0-44.0); Mean Cell Volume 82.9 fL (78-100); Mean Corpuscular Hemoglobin 26.3 pg (26-32); Mean Corpuscular Hgb Concent. 31.7 g/dL (32-36); Monocyte (Absolute #) 0.54 x10^3/uL (0.0-1.3); Monocytes % 6.8 % (0.0-12.0); Neutrophil % 73.8 % (36.0-66.0); Platelet Count 331 x10^3/uL (150-450); Red Blood Count 5.37 x10^6/uL (4.1-5.6)
[2023-07-13 13:00] LABS: ALBUMIN 4.4 g/dL (3.5-5.0); BILIRUBIN,TOTAL 0.6 mg/dL (0.2-1.3); Creatinine 1 0.54 mg/dL (0.66-1.25); EST GLOMERULAR FILTRATION RATE 107.9 ML/MIN; Potassium 4.4 mmol/L (3.5-5.1); Total Protein 7.3 g/dL (6.3-8.2)
[2023-07-13] MEDS ORDERED: Sodium Chloride 0.9% 1000 ML 1,000 ML IV STA (13:44)
[2023-07-13] MEDS ORDERED: Sodium Chloride 0.9% 1000 ML 1,000 ML ONE (13:46)
[2023-07-13 14:14] VITALS: PULSE 62
[2023-07-13 15:01] LABS: INFLUENZA A NEGATIVE (NEGATIVE); INFLUENZA B NEGATIVE (NEGATIVE); RESPIRATORY SYNCTIAL VIRUS NEGATIVE (NEGATIVE); SARS-CoV-2 Xpert Express NEGATIVE (NEGATIVE)
[2023-07-13 16:03] VITALS: BP 140/81; RESP 19
[2023-07-13 16:14] VITALS: O2SAT 98
== END 2023-07-13 16:30 | disposition home or self-care (01) ==
LOC: ED 10:54
DX: Z71.1 Person with feared health complaint in whom no diagnosis is made (principal); R53.83 Other fatigue; E87.1 Hypo-osmolality and hyponatremia; M79.10 Myalgia, unspecified site; R51.9 Headache, unspecified; E78.5 Hyperlipidemia, unspecified; I10 Essential (primary) hypertension; E11.9 Type 2 diabetes mellitus without complications; E27.40 Unspecified adrenocortical insufficiency; Z79.4 Long term (current) use of insulin; Z79.899 Other long term (current) drug therapy; Z20.828 Contact with and (suspected) exposure to other viral communicable diseases
CPT/HCPCS: 0241U; 36000; 36415; 80053; 85025; 99284; J1642